=== PATIENT | female | born 1940 | race Caucasian/White ===

== ENCOUNTER → 2019-02-12 10:13 | Outpatient (CLI) | payer MEDICAID, SELFPAY | PROVIDERS: PCP Emergency Medicine; Visit Provider Internal Medicine Cardiovascular Disease | DX: R42 Dizziness and giddiness (principal) | CPT/HCPCS: 93225 ==

== ENCOUNTER 2019-06-29 08:48 | Inpatient (IN) ==
--- NOTE | 2019-06-29 08:59 | Emergency Department Note ---
ED Disposition Clinical Impression: Acute cholecystitis, Sepsis Disposition: Admitted as Observation Condition on Discharge: Fair Instructions: DI for Acute Abdomen Referrals: Bismark Sanchez MD [Primary Care Provider] - Time of Disposition: 11:40 - Critical Care Critical Care Time: No Attestation: On 06/29/19, the high probability of a clinically significant, sudden or life threatening deterioration of the following system(s) required my full and direct attention, intervention and personal management. The time I documented below is in addition to time spent performing reported procedures but includes the following listed in this critical care notation. Medical Decision Making - Medical Records Medical records reviewed: Yes: I reviewed the patient's medical records. - Edward Inquiry Pt receiving controlled substance: No Edward was queried for this patient: No Vital Signs: 06/29/19 08:50 06/29/19 09:51 06/29/19 10:16 Temperature 103 F H Temperature Source Oral Pulse Rate [Left Radial] 99 H 94 H 103 H Respiratory Rate 18 Blood Pressure [Right Arm] 172/67 H 104/74 L 137/69 Blood Pressure Mean [Right Arm] 102 84 91 Blood Pressure Source [Right Arm] Automatic Cuff Blood Pressure Position [Right Arm] Sitting 02 Sat by Pulse Oximetry 98 97 93 L Oxygen Delivery Method Room Air 06/29/19 11:03 Temperature 102.2 F H Temperature Source Oral Pulse Rate [Left Radial] Respiratory Rate Blood Pressure [Right Arm] Blood Pressure Mean [Right Arm] Blood Pressure Source [Right Arm] Blood Pressure Position [Right Arm] 02 Sat by Pulse Oximetry Oxygen Delivery Method - Lab Data Lab results reviewed: Yes: I reviewed the patient's lab results. Lab Results 06/29/19 09:15: WBC 6.9, RBC 4.31, Hgb 12.7, Hct 38.8, MCV 90.2, MCH 29.4, MCHC 32.6, RDW 13.6, Plt Count 226, MPV 8.3, Neut % (Auto) 93.1 H, Lymph % (Auto) 4.1 L, [place] % (Auto) 2.2, Eos % (Auto) 0.4, Baso % (Auto) 0.2, Neut # (Auto) 6.5, Lymph # (Auto) 0.3 L, [place] # (Auto) 0.2, Eos # (Auto) 0.0, Baso # (Auto) 0.0, Total Counted 100, Neutrophils % (Manual) 83 H, Band Neutrophils % 13.0 H, Lymphocytes % (Manual) 1 L, Atypical Lymphs % 1.0, Monocytes % (Manual) 2, Platelet Estimate Normal, RBC Morphology Normal 06/29/19 09:15: Sodium 144, Potassium 3.6, Chloride 106, Carbon Dioxide 26, Anion Gap 15.6 H, BUN 10, Creatinine 1.12 H, Estimated Creat Clear 42, Estimated GFR 47 L, Est GFR ( Amer) 57 L, Glucose 126 H, Calcium 9.0, Total Bilirubin 2.0 H, AST 582 H* D, ALT 343 H*, Alkaline Phosphatase 188 H, Total Protein 7.3, Albumin 3.9, Globulin 3.4 H, Albumin/Globulin Ratio 1.1, Lipase 82 06/29/19 09:15: Lactate 3.0 H 06/29/19 09:50: Urine Color Yellow, Urine Appearance Clear, Urine pH 7.0, Ur Specific [place] 1.015, Urine Protein Negative, Urine Glucose (UA) Negative, Urine Ketones Negative, Urine Blood Trace-i, Urine Nitrate Negative, Urine Bilirubin Negative, Urine Urobilinogen 1.0, Ur Leukocyte Esterase Negative, Urine RBC Occasional, Urine WBC Occasional, Ur Squamous Epith Cells None, Urine Bacteria None Result diagrams: 06/29/19 09:15 06/29/19 09:15 Orders (Tests/Meds): ED MEDICATIONS Discontinued Medications Generic Name Dose Route Start Last Admin Trade Name Jamshid PRN Reason Stop Dose Admin Acetaminophen 650 mg 06/29/19 08:58 06/29/19 09:53 Acetaminophen 650mg Suppository RC 06/29/19 08:59 650 mg ONCE ONE Administration Piperacillin Sod/Tazobactam 100 mls @ 200 mls/hr 06/29/19 10:15 06/29/19 11:02 Sod 4.5 gm/ Sodium Chloride IV 06/29/19 10:44 200 mls/hr ONCE ONE Administration Protocol Metronidazole 500 mg in 100 mls @ 100 mls/hr 06/29/19 10:08 06/29/19 10:12 Flagyl 500mg/100ml Ivpb IV 06/29/19 11:07 100 mls/hr ONCE ONE Administration Protocol Ioversol 75 ml 06/29/19 09:32 06/29/19 09:32 Rad-Optiray 350 100ml Vial IV 06/29/19 09:33 75 ml ONCE ONE Administration Protocol Ondansetron HCl 4 mg 06/29/19 08:59 06/29/19 09:53 Zofran 4mg/2ml Vial IV 06/29/19 09:00 4 mg ONCE ONE Administration Sodium Chloride 10 ml 06/29/19 09:32 06/29/19 09:32 Rad-Saline Flush 10ml Syringe IV 06/29/19 09:33 10 ml ONCE ONE Administration ORDERS Category Date Time Status Blood Culture Stat Micro 06/29/19 09:40 Received - Physician Consults Physician Consulted: samuel Time: 10:25 Additional Consult: madalyn Time: 11:39 Reason -: Admission General Adult HPI - General Chief complaint: Abdominal Pain Stated complaint: abd pain Time Seen by Provider: 06/29/19 08:56 Mode of Arrival: EMS Source of Information: Patient, EMS Limitations: Language Barrier Description of Symptoms (Recalled from ER Triage Doc. by RN): to ed per shanellad pt resident [facility] sent for eval due to vomiting and c/o abd pain starting this am. pt seen yesterday in ed for c/o chest pain. - History of Present Illness HPI narrative: ?? abdominal pain. poor historian - Related Data Home Medications Medication Instructions Recorded Confirmed albuterol sulfate HFA 90 2 puff INHALATION DAILYP PRN g 01/12/19 06/29/19 mcg/actuation aerosol inhaler aspirin 81 mg chewable tablet 81 mg PO DAILY 01/12/19 06/29/19 atorvastatin 40 mg tablet 40 mg PO QHS 01/12/19 06/29/19 donepezil 10 mg tablet 20 mg PO QHS tab 01/12/19 06/29/19 ergocalciferol (vitamin D2) 50,000 50,000 unit PO QWEEK 01/12/19 06/29/19 unit capsule memantine 28 mg capsule 28 mg PO DAILY 01/12/19 06/29/19 sprinkle,extended release 24hr multivitamin,tx-minerals tablet 1 tab PO DAILY 01/12/19 06/29/19 omeprazole 20 mg capsule,delayed 20 mg PO DAILY 01/12/19 06/29/19 release polyethylene glycol 3350 17 17 g PO BID 01/12/19 06/29/19 gram/dose oral powder quetiapine ER 50 mg 50 mg PO DAILY 01/12/19 06/29/19 tablet,extended release 24 hr sertraline 100 mg tablet 100 mg PO DAILY 01/12/19 06/29/19 tiotropium bromide 18 mcg capsule 1 cap INHALATION DAILY 01/12/19 06/29/19 with inhalation device Allergies Allergy/AdvReac Type Severity Reaction Status Date / Time NO KNOWN ALLERGIES Allergy Uncoded 03/05/19 09:55 [facility] History - Hepatitis A Screen Drug use history?: No High risk sexual behaviors?: No History of sexually transmitted infection?: No Currently employed?: No Childcare worker?: No Do you have indoor plumbing?: Yes Do you have electricity?: Yes Attestation statement:: This patient has been screened for Hepatitis A risk factors. I have reviewed the patient's past medical history: Yes Medical History: Reports:: Anxiety, Chronic Obstructive Pulmonary Disease (COPD), Depression, Hyperlipidemia Denies:: Diabetes Mellitus Type 1, Diabetes Mellitus Type 2 Comment: Dementia Other Surgeries: Yes: Appendectomy, Cardiac Catheterization - Social History Smoking Status: Never smoker Alcohol Intake: never Substance Use Type: denies use Occupational Status: retired - Psychiatric History Pschychiatric History:: Reports:: Anxiety, Depression Family Hx:: No significant family history ROS Obtained: Yes unobtainable due to mental condition Physical Exam - General General appearance: alert, in no apparent distress - Eye Eye exam: Present: normal appearance, PERRL, EOMI - ENT ENT exam: Present: normal exam, normal oropharynx, mucous membranes moist, TM's normal bilaterally, normal external ear exam - Neck Neck exam: Present: normal inspection, full ROM, trachea midline. Absent: men ingismus, lymphadenopathy - Respiratory Respiratory exam: Present: normal lung sounds bilaterally. Absent: respiratory distress - Cardiovascular Cardiovascular exam: Present: regular rate, normal rhythm. Absent: JVD - Abdominal Exam Abdominal exam: Present: soft, distention. Absent: tenderness, guarding, rebound - Extremities Exam Extremities exam: Present: normal inspection, full ROM, normal capillary refill. Absent: calf tenderness - Neurological Exam Neurological exam: Present: alert, oriented X3 - Psychiatric Psychiatric exam: Present: normal mood - Skin Skin exam: Present: warm, dry, intact
[2019-06-29 09:35] LABS: Basophils % 0.2 % (0.1-2.0); Eosinophils % 0.4 % (0.1-12.0); Hematocrit 38.8 % (37.0-47.0); Hemoglobin 12.7 g/dL (12.2-16.2); Lymphocytes # 0.3 K/mm3 (0.7-4.5); Lymphocytes % 4.1 % (10-50); Mean Corpuscular HGB Conc 32.6 g/dL (31.8-35.4); Mean Corpuscular Volume 90.2 fl (81-99); Mean Platelet Volume 8.3 fl (7.4-10.4); Monocytes # 0.2 K/mm3 (0.1-1.0); Monocytes % 2.2 % (1.7-9.3); Neutrophils # 6.5 K/mm3 (1.8-7.8); Neutrophils % 93.1 % (37.0-80.0); Platelet Count 226 K/mm3 (142-424); Red Blood Count 4.31 M/mm3 (4.20-5.40); Red Cell Distribution Width 13.6 % (11.5-17.5); White Blood Count 6.9 K/mm3 (4.8-10.8)
[2019-06-29 09:52] LABS: Albumin Level 3.9 gm/dL (3.4-5.0); Albumin/Globulin Ratio 1.1 (1.1-1.8); Anion Gap 15.6 mEq/L (5-15); Globulin 3.4 gm/dl (1.3-3.2); Lymphocytes % 1 % (10-50); Monocytes % 2 % (2-9); Neutrophils % 83 % (42-76); RBC Morphology Normal; Total Cells Counted 100; Total Protein,Serum 7.3 gm/dL (6.4-8.2)
[2019-06-29 09:59] LABS: Microscopic, Urine URINE MICROSCOPIC (MICROSCOPIC)
[2019-06-29 10:14] LABS: Appearance,Urine CLEAR (Clear); Bilirubin,Urine Negative (Negative); Blood, Urine TRACE-I (Negative); Color,Urine YELLOW (Yellow); Glucose,Urine (UA) Negative (Negative); Ketones,Urine Negative (Negative); Leukocyte Esterase,Urine Negative (Negative); Protein,Urine Negative (Negative); Specific Gravity, Urine 1.015 (1.005-1.030)
[2019-06-29 10:25] LABS: RBC,Urine Occasional #/hpf (0-3); WBC,Urine Occasional #/hpf (0-3)
--- NOTE | 2019-06-29 12:48 | Consult Report ---
*Admission Date: 06/29/19 *Reason for consult:: Gallbladder *History of present illness: Patient is a 78-year-old white female resident at [facility] who had presented to the emergency department late yesterday evening with chest pain. She underwent thorough work-up which was unremarkable. She was discharged from the emergency department and returned several hours later because she states "I got sick". She describes nausea. She had been having significant fever to 103 F. Work-up in the emergency department at this time revealed some appreciable elevation of the liver transaminases with only mildly above normal bilirubin and alkaline phosphatase. She underwent CT scan of the abdomen and pelvis which reveals findings notable for pericholecystic fluid and enhancing gallbladder with minimal stranding. This was felt to be potentially consistent with acute cholecystitis. She was admitted for inpatient management. Review of Systems - Review of Systems Review of systems:: unable to obtain [facility] History Medical History: Reports:: Anxiety, Chronic Obstructive Pulmonary Disease (COPD), Depression, Hyperlipidemia Denies:: Diabetes Mellitus Type 1, Diabetes Mellitus Type 2 *Have you ever received a pneumonia vaccine?: Yes *Have you received a flu vaccine this season?: Yes Other Surgeries: Yes: Appendectomy, Cardiac Catheterization - *Social History Smoking Status: Never smoker Alcohol Intake: never Substance Use Type: denies use *Occupational Status:: retired *Travel in the last 8 weeks: None - Psychiatric History Pschychiatric History:: Reports:: Anxiety, Depression Family Hx:: No significant family history Meds Home Medications Medication Instructions Recorded Confirmed Type albuterol sulfate HFA 90 2 puff INHALATION DAILYP PRN g 01/12/19 06/29/19 History mcg/actuation aerosol inhaler aspirin 81 mg chewable tablet 81 mg PO DAILY 01/12/19 06/29/19 History atorvastatin 40 mg tablet 40 mg PO QHS 01/12/19 06/29/19 History donepezil 10 mg tablet 20 mg PO QHS tab 01/12/19 06/29/19 History ergocalciferol (vitamin D2) 50,000 50,000 unit PO QWEEK 01/12/19 06/29/19 History unit capsule memantine 28 mg capsule 28 mg PO DAILY 01/12/19 06/29/19 History sprinkle,extended release 24hr multivitamin,tx-minerals tablet 1 tab PO DAILY 01/12/19 06/29/19 History omeprazole 20 mg capsule,delayed 20 mg PO DAILY 01/12/19 06/29/19 History release polyethylene glycol 3350 17 17 g PO BID 01/12/19 06/29/19 History gram/dose oral powder quetiapine ER 50 mg 50 mg PO DAILY 01/12/19 06/29/19 History tablet,extended release 24 hr sertraline 100 mg tablet 100 mg PO DAILY 01/12/19 06/29/19 History tiotropium bromide 18 mcg capsule 1 cap INHALATION DAILY 01/12/19 06/29/19 History with inhalation device Allergies Allergy/AdvReac Type Severity Reaction Status Date / Time NO KNOWN ALLERGIES Allergy Uncoded 03/05/19 09:55 Exam Vital signs and Labs for Last 24 Hours: Temp Pulse Resp BP Pulse Ox 99.3 F 92 H 20 114/54 L 91 L 06/29/19 12:34 06/29/19 12:34 06/29/19 12:34 06/29/19 12:34 06/29/19 12:34 Laboratory Results - last 24 hr 06/29/19 09:15: WBC 6.9, RBC 4.31, Hgb 12.7, Hct 38.8, MCV 90.2, MCH 29.4, MCHC 32.6, RDW 13.6, Plt Count 226, MPV 8.3, Neut % (Auto) 93.1 H, Lymph % (Auto) 4.1 L, [place] % (Auto) 2.2, Eos % (Auto) 0.4, Baso % (Auto) 0.2, Neut # (Auto) 6.5, Lymph # (Auto) 0.3 L, [place] # (Auto) 0.2, Eos # (Auto) 0.0, Baso # (Auto) 0.0, Total Counted 100, Neutrophils % (Manual) 83 H, Band Neutrophils % 13.0 H, Lymphocytes % (Manual) 1 L, Atypical Lymphs % 1.0, Monocytes % (Manual) 2, Platelet Estimate Normal, RBC Morphology Normal 06/29/19 09:15: Sodium 144, Potassium 3.6, Chloride 106, Carbon Dioxide 26, Anion Gap 15.6 H, BUN 10, Creatinine 1.12 H, Estimated Creat Clear 42, Estimated GFR 47 L, Est GFR ( Amer) 57 L, Glucose 126 H, Calcium 9.0, Total Bilirubin 2.0 H, AST 582 H* D, ALT 343 H*, Alkaline Phosphatase 188 H, Total Protein 7.3, Albumin 3.9, Globulin 3.4 H, Albumin/Globulin Ratio 1.1, Lipase 82 06/29/19 09:15: Lactate 3.0 H 06/29/19 09:50: Urine Color Yellow, Urine Appearance Clear, Urine pH 7.0, Ur Specific [place] 1.015, Urine Protein Negative, Urine Glucose (UA) Negative, Urine Ketones Negative, Urine Blood Trace-i, Urine Nitrate Negative, Urine Bilirubin Negative, Urine Urobilinogen 1.0, Ur Leukocyte Esterase Negative, Urine RBC Occasional, Urine WBC Occasional, Ur Squamous Epith Cells None, Urine Bacteria None I & O for Last 24 hours: Intake & Output 06/27/19 06/28/19 06/29/19 06/30/19 11:59 11:59 11:59 11:59 Weight 140 lb 127 lb 1 oz - *Routine HEENT Exam Head: Present: normocephalic Eye: Present: EOMI, PERRL ENT: Present: mucous membranes moist - *Routine Neck Exam Present: supple. Absent: lymphadenopathy - *Routine Respiratory Exam Present: CTA bilaterally - *Routine Cardiovascular Exam Present: RRR - *Routine Abdominal Exam Present: soft, normoactive bowel sounds. Absent: tenderness Comments: Patient does not have any appreciable tenderness. Only very minimal discomfort in the right upper quadrant. - *Routine Extremities Exam Absent: cyanosis, clubbing, edema - *Routine Skin Exam Present: warm. Absent: rash - *Routine Neurological Exam Present: alert - Detailed Eye Exam Eyelids: Left normal inspection Results - Labs 06/29/19 09:15 06/29/19 09:15 Laboratory Results - last 24 hr 06/29/19 09:15: WBC 6.9, RBC 4.31, Hgb 12.7, Hct 38.8, MCV 90.2, MCH 29.4, MCHC 32.6, RDW 13.6, Plt Count 226, MPV 8.3, Neut % (Auto) 93.1 H, Lymph % (Auto) 4.1 L, [place] % (Auto) 2.2, Eos % (Auto) 0.4, Baso % (Auto) 0.2, Neut # (Auto) 6.5, Lymph # (Auto) 0.3 L, [place] # (Auto) 0.2, Eos # (Auto) 0.0, Baso # (Auto) 0.0, Total Counted 100, Neutrophils % (Manual) 83 H, Band Neutrophils % 13.0 H, Lymphocytes % (Manual) 1 L, Atypical Lymphs % 1.0, Monocytes % (Manual) 2, Platelet Estimate Normal, RBC Morphology Normal 06/29/19 09:15: Sodium 144, Potassium 3.6, Chloride 106, Carbon Dioxide 26, Anion Gap 15.6 H, BUN 10, Creatinine 1.12 H, Estimated Creat Clear 42, Estimated GFR 47 L, Est GFR ( Amer) 57 L, Glucose 126 H, Calcium 9.0, Total Bilirubin 2.0 H, AST 582 H* D, ALT 343 H*, Alkaline Phosphatase 188 H, Total Protein 7.3, Albumin 3.9, Globulin 3.4 H, Albumin/Globulin Ratio 1.1, Lipase 82 06/29/19 09:15: Lactate 3.0 H 06/29/19 09:50: Urine Color Yellow, Urine Appearance Clear, Urine pH 7.0, Ur Specific [place] 1.015, Urine Protein Negative, Urine Glucose (UA) Negative, Urine Ketones Negative, Urine Blood Trace-i, Urine Nitrate Negative, Urine Bilirubin Negative, Urine Urobilinogen 1.0, Ur Leukocyte Esterase Negative, Urine RBC Occasional, Urine WBC Occasional, Ur Squamous Epith Cells None, Urine Bacteria None Assessment and Plan - Assessment and plan all Dx Assessment and Plan for all problems:: Likely acute cholecystitis. Initiate antibiotic therapy with Zosyn and metronidazole. Plan for gallbladder ultrasound this afternoon to better evaluate the biliary tree and to evaluate for any non-radiopaque gallstones. I will order a hepatitis panel as well to evaluate for acute viral hepatitis as an etiology. Consult cardiology for risk assessment for possible surgery given her prior cardiac history.
--- NOTE | 2019-06-29 13:06 | History & Physical Report ---
*Admission Date: 06/29/19 *Chief complaint: abd pain *History of present illness: this wf from nursing home had had chest pain abd pain and was seen in the ed with no def acute finding and returned to nursing home and had abd pain with fever and vomiting - she was seen in the ed - pt was found to have acute gb disease and had sepsis - pt was admitted for ivf and abx and surg consult [facility] History I have reviewed the patient's past medical history: Yes Medical History: Reports:: Anxiety, Chronic Obstructive Pulmonary Disease (COPD), Depression, Hyperlipidemia Denies:: Diabetes Mellitus Type 1, Diabetes Mellitus Type 2 *Have you ever received a pneumonia vaccine?: No (unsure) *Have you received a flu vaccine this season?: No (unsure) Other Medical History: Reports: Anemia Other Surgeries: Yes: Appendectomy, Cardiac Catheterization - *Social History Smoking Status: Never smoker Alcohol Intake: never Substance Use Type: denies use *Occupational Status:: disabled *Travel in the last 8 weeks: None - Psychiatric History Pschychiatric History:: Reports:: Anxiety, Depression Family Hx:: No significant family history Review of Systems - Review of Systems Review of systems:: pertinent systems reviewed and negative unless documented below - Constitutional Reports fever(s) - Eyes Denies change in vision - ENT Denies sore throat - *Cardiovascular Denies chest pain at rest - *Respiratory Denies cough, Denies coughing up blood - *Gastrointestinal Reports abdominal pain, Reports nausea, Reports vomiting, Denies black, tarry stools - *Genitourinary Denies blood in urine - *Musculoskeletal Denies joint pain - Integumentary/Breasts Denies rash - *Neurologic Denies seizure-like activity - Psychiatric Denies anxiety Meds Home Medications Medication Instructions Recorded Confirmed Type albuterol sulfate HFA 90 2 puff INHALATION DAILYP PRN g 01/12/19 06/29/19 History mcg/actuation aerosol inhaler aspirin 81 mg chewable tablet 81 mg PO DAILY 01/12/19 06/29/19 History atorvastatin 40 mg tablet 40 mg PO HS 01/12/19 06/29/19 History donepezil 10 mg tablet 20 mg PO HS tab 01/12/19 06/29/19 History ergocalciferol (vitamin D2) 50,000 50,000 unit PO QWEEK 01/12/19 06/29/19 History unit capsule memantine 28 mg capsule 28 mg PO HS 01/12/19 06/29/19 History sprinkle,extended release 24hr multivitamin,tx-minerals tablet 1 tab PO DAILY 01/12/19 06/29/19 History omeprazole 20 mg capsule,delayed 20 mg PO DAILY 01/12/19 06/29/19 History release polyethylene glycol 3350 17 17 g PO BID 01/12/19 06/29/19 History gram/dose oral powder sertraline 100 mg tablet 100 mg PO DAILY 01/12/19 06/29/19 History tiotropium bromide 18 mcg capsule 1 cap INHALATION DAILY 01/12/19 06/29/19 History with inhalation device Acetaminophen [Acetaminophen 325mg 650 mg PO Q6HP PRN 06/29/19 06/29/19 History tab] Loperamide HCl [Loperamide] 2 mg PO Q3HP PRN 06/29/19 06/29/19 History Quetiapine Fumarate 50 mg PO HS 06/29/19 06/29/19 History Allergies Allergy/AdvReac Type Severity Reaction Status Date / Time No Known Allergies Allergy Unverified 06/29/19 13:01 Exam Vital signs and Labs for Last 24 Hours: Temp Pulse Resp BP Pulse Ox 99.3 F 92 H 20 114/54 L 91 L 06/29/19 12:34 06/29/19 12:34 06/29/19 12:34 06/29/19 12:34 06/29/19 12:34 Laboratory Results - last 24 hr 06/29/19 09:15: WBC 6.9, RBC 4.31, Hgb 12.7, Hct 38.8, MCV 90.2, MCH 29.4, MCHC 32.6, RDW 13.6, Plt Count 226, MPV 8.3, Neut % (Auto) 93.1 H, Lymph % (Auto) 4.1 L, [place] % (Auto) 2.2, Eos % (Auto) 0.4, Baso % (Auto) 0.2, Neut # (Auto) 6.5, Lymph # (Auto) 0.3 L, [place] # (Auto) 0.2, Eos # (Auto) 0.0, Baso # (Auto) 0.0, Total Counted 100, Neutrophils % (Manual) 83 H, Band Neutrophils % 13.0 H, Lymphocytes % (Manual) 1 L, Atypical Lymphs % 1.0, Monocytes % (Manual) 2, Platelet Estimate Normal, RBC Morphology Normal 06/29/19 09:15: Sodium 144, Potassium 3.6, Chloride 106, Carbon Dioxide 26, Anion Gap 15.6 H, BUN 10, Creatinine 1.12 H, Estimated Creat Clear 42, Estimated GFR 47 L, Est GFR ( Amer) 57 L, Glucose 126 H, Calcium 9.0, Total Bilirubin 2.0 H, AST 582 H* D, ALT 343 H*, Alkaline Phosphatase 188 H, Total Protein 7.3, Albumin 3.9, Globulin 3.4 H, Albumin/Globulin Ratio 1.1, Lipase 82 06/29/19 09:15: Lactate 3.0 H 06/29/19 09:50: Urine Color Yellow, Urine Appearance Clear, Urine pH 7.0, Ur Specific [place] 1.015, Urine Protein Negative, Urine Glucose (UA) Negative, Urine Ketones Negative, Urine Blood Trace-i, Urine Nitrate Negative, Urine Bilirubin Negative, Urine Urobilinogen 1.0, Ur Leukocyte Esterase Negative, Urin e RBC Occasional, Urine WBC Occasional, Ur Squamous Epith Cells None, Urine Bacteria None I & O for Last 24 hours: Intake & Output 06/27/19 06/28/19 06/29/19 06/30/19 11:59 11:59 11:59 11:59 Weight 140 lb 127 lb 1 oz - Constitutional no acute distress - *Routine HEENT Exam Head: Present: normocephalic Eye: Present: EOMI, PERRL. Absent: conjunctival icterus ENT: Present: mucous membranes dry - *Routine Neck Exam Present: supple - *Routine Respiratory Exam Present: CTA bilaterally - *Routine Cardiovascular Exam Present: RRR, murmur - *Routine Abdominal Exam Present: soft, tenderness - *Routine Extremities Exam Absent: calf tenderness - *Routine Skin Exam Present: intact - *Routine Neurological Exam Present: alert, CN II-XII intact - Routine Psychiatric Exam Present: normal affect Assessment and Plan (1) Acute cholecystitis Current visit: Yes Status: Acute Category: Medical Code(s): K81.0 - Acute cholecystitis (2) Sepsis Current visit: Yes Status: Acute Qualifiers: Sepsis type: sepsis due to unspecified organism Sepsis acute organ dysfunction status: without acute organ dysfunction Qualified Code(s): A41.9 - Sepsis, unspecified organism Category: Medical Code(s): A41.9 - Sepsis, unspecified organism (3) Elevated LFTs Current visit: Yes Status: Acute Category: Medical Code(s): R94.5 - Abnormal results of liver function studies (4) HLD (hyperlipidemia) Current visit: No Status: Chronic Qualifiers: Hyperlipidemia type: mixed hyperlipidemia Qualified Code(s): E78.2 - Mixed hyperlipidemia Category: Medical Code(s): E78.5 - Hyperlipidemia, unspecified (5) Memory deficit Current visit: Yes Status: Acute Category: Medical Code(s): R41.3 - Other amnesia
--- NOTE | 2019-06-29 13:38 | Pharmacy Consult Notes ---
[facility] Pharmacy VTE Monitoring - Patient Demographics Admission date: 06/29/19 Report Date: 06/29/19 Time: 13:38 Allergies/Adverse Reactions: Patient Allergies No Known Allergies Allergy (Unverified 06/29/19 13:01) Height: 1.63 m Weight: 57.635 kg Patient Problems: Current Active Problems Acute cholecystitis (Acute) Sepsis (Acute) - VTE Risk Labs: VTE Related Lab Results Hgb 12.7 g/dL (12.2-16.2) 06/29/19 09:15 Hct 38.8 % (37.0-47.0) 06/29/19 09:15 Plt Count 226 K/mm3 (142-424) 06/29/19 09:15 BUN 10 mg/dL (7-18) 06/29/19 09:15 Creatinine 1.12 mg/dL (0.55-1.02) H 06/29/19 09:15 Estimated Creat Clear 42 mL/min (50-200) 06/29/19 09:15 - Prophylaxis VTE Prophylaxis Ordered?: Yes Types of VTE Prophylaxis: TEDS Knee High Location of Applied Device: Bilateral Lower Extremeties - VTE Diagnosis Confirmed Treatment or plan recommended: Continue Current Treatment
--- NOTE | 2019-06-29 13:53 | Consult Report ---
History of Present Illness Consult date: 06/29/19 Requesting physician: Bismark Sanchez Consult reason: pre-op evaluation Chief complaint: Abdominal pain, pre-op evaluation for cholecystectomy Additional Medical History:: 1. Mild CAD, 2015, Cardiac cath A. ANGIOGRAPHIC RESULTS: 1. The left main artery is normal 2. The left anterior descending artery has mild luminal irregularities 3. The circumflex artery is a dominant vessel and normal 4. The right coronary artery is nondominant and normal 5. The [place] ventriculogram reveals normal ejection fraction estimated at 65% 6. The left ventricular end-diastolic pressure is 10 mmHg IMPRESSION: 1. Mild nonflow limiting disease throughout the LAD 2. Normal ejection fraction 3. Normal left ventricular end-diastolic pressure 2. COPD 3. Anxiety/Depression 4. Hyperlipidemia 5. History of hypertension History of present illness: Patient is a 78-year-old white female resident at [facility] who had presented to the emergency department late yesterday evening with chest pain. She underwent thorough work-up which was unremarkable. She was discharged from the emergency department and returned several hours later because she states "I got sick". She describes nausea. She had been having significant fever to 103 F. Work-up in the emergency department at this time revealed some appreciable elevation of the liver transaminases with only mildly above normal bilirubin and alkaline phosphatase. She underwent CT scan of the abdomen and pelvis which reveals findings notable for pericholecystic fluid and enhancing gallbladder with minimal stranding. This was felt to be potentially consistent with acute cholecystitis. She was admitted for inpatient management. The above per Dr. Mijares Pt is a poor historian Denies chest pain at this time. [facility] History Medical History: Reports:: Anxiety, Chronic Obstructive Pulmonary Disease (COPD), Depression, Hyperlipidemia Denies:: Diabetes Mellitus Type 1, Diabetes Mellitus Type 2 *Have you ever received a pneumonia vaccine?: No (unsure) *Have you received a flu vaccine this season?: No (unsure) Other Medical History: Reports: Anemia Other Surgeries: Yes: Appendectomy, Cardiac Catheterization - *Social History Smoking Status: Never smoker Alcohol Intake: never Substance Use Type: denies use *Occupational Status:: disabled *Travel in the last 8 weeks: None - Psychiatric History Pschychiatric History:: Reports:: Anxiety, Depression Family Hx:: No significant family history Meds Home Medications Medication Instructions Recorded Confirmed Type albuterol sulfate HFA 90 2 puff INHALATION DAILYP PRN g 01/12/19 06/29/19 History mcg/actuation aerosol inhaler aspirin 81 mg chewable tablet 81 mg PO DAILY 01/12/19 06/29/19 History atorvastatin 40 mg tablet 40 mg PO HS 01/12/19 06/29/19 History donepezil 10 mg tablet 20 mg PO HS tab 01/12/19 06/29/19 History ergocalciferol (vitamin D2) 50,000 50,000 unit PO QWEEK 01/12/19 06/29/19 History unit capsule memantine 28 mg capsule 28 mg PO HS 01/12/19 06/29/19 History sprinkle,extended release 24hr multivitamin,tx-minerals tablet 1 tab PO DAILY 01/12/19 06/29/19 History omeprazole 20 mg capsule,delayed 20 mg PO DAILY 01/12/19 06/29/19 History release polyethylene glycol 3350 17 17 g PO BID 01/12/19 06/29/19 History gram/dose oral powder sertraline 100 mg tablet 100 mg PO DAILY 01/12/19 06/29/19 History tiotropium bromide 18 mcg capsule 1 cap INHALATION DAILY 01/12/19 06/29/19 History with inhalation device Acetaminophen [Acetaminophen 325mg 650 mg PO Q6HP PRN 06/29/19 06/29/19 History tab] Loperamide HCl [Loperamide] 2 mg PO Q3HP PRN 06/29/19 06/29/19 History Quetiapine Fumarate 50 mg PO HS 06/29/19 06/29/19 History Allergies Allergy/AdvReac Type Severity Reaction Status Date / Time No Known Allergies Allergy Unverified 06/29/19 13:01 Review of Systems - *Cardiovascular Reports chest pain, Denies shortness of breath - *Respiratory Denies shortness of breath - *Gastrointestinal Reports abdominal pain, Reports nausea, Reports vomiting - *Genitourinary Denies blood in urine - *Musculoskeletal Denies joint pain, Denies back pain - *Neurologic Reports unsteadiness, Reports dizziness Exam Vital signs and Labs for Last 24 Hours: Temp Pulse Resp BP Pulse Ox 99.3 F 92 H 20 114/54 L 91 L 06/29/19 12:34 06/29/19 12:34 06/29/19 12:34 06/29/19 12:34 06/29/19 12:34 Laboratory Results - last 24 hr 06/29/19 09:15: WBC 6.9, RBC 4.31, Hgb 12.7, Hct 38.8, MCV 90.2, MCH 29.4, MCHC 32.6, RDW 13.6, Plt Count 226, MPV 8.3, Neut % (Auto) 93.1 H, Lymph % (Auto) 4.1 L, [place] % (Auto) 2.2, Eos % (Auto) 0.4, Baso % (Auto) 0.2, Neut # (Auto) 6.5, Lymph # (Auto) 0.3 L, [place] # (Auto) 0.2, Eos # (Auto) 0.0, Baso # (Auto) 0.0, Total Counted 100, Neutrophils % (Manual) 83 H, Band Neutrophils % 13.0 H, Lymphocytes % (Manual) 1 L, Atypical Lymphs % 1.0, Monocytes % (Manual) 2, Platelet Estimate Normal, RBC Morphology Normal 06/29/19 09:15: Sodium 144, Potassium 3.6, Chloride 106, Carbon Dioxide 26, Anion Gap 15.6 H, BUN 10, Creatinine 1.12 H, Estimated Creat Clear 42, Estimated GFR 47 L, Est GFR ( Amer) 57 L, Glucose 126 H, Calcium 9.0, Total Bilirubin 2.0 H, AST 582 H* D, ALT 343 H*, Alkaline Phosphatase 188 H, Total Protein 7.3, Albumin 3.9, Globulin 3.4 H, Albumin/Globulin Ratio 1.1, Lipase 82 06/29/19 09:15: Lactate 3.0 H 06/29/19 09:50: Urine Color Yellow, Urine Appearance Clear, Urine pH 7.0, Ur Specific [place] 1.015, Urine Protein Negative, Urine Glucose (UA) Negative, Urine Ketones Negative, Urine Blood Trace-i, Urine Nitrate Negative, Urine Bilirubin Negative, Urine Urobilinogen 1.0, Ur Leukocyte Esterase Negative, Urine RBC Occasional, Urine WBC Occasional, Ur Squamous Epith Cells None, Urine Bacteria None I & O for Last 24 hours: Intake & Output 06/27/19 06/28/19 06/29/19 06/30/19 11:59 11:59 11:59 11:59 Weight 140 lb 127 lb 1 oz - *Routine HEENT Exam Head: Present: normocephalic Eye: Present: EOMI, PERRL ENT: Present: mucous membranes moist - *Routine Neck Exam Present: supple. Absent: JVD, carotid bruit - *Routine Respiratory Exam Present: CTA bilaterally. Absent: accessory muscle use, rales, rhonchi, wheezes - *Routine Cardiovascular Exam Present: RRR. Absent: murmur, gallop, rubs - *Routine Abdominal Exam Present: soft, tenderness. Absent: distended, guarding - *Routine Extremities Exam Absent: edema, calf tenderness - *Routine Neurological Exam Present: alert, moving all extremities Assessment and Plan (1) Acute cholecystitis Current visit: Yes Status: Acute Category: Medical Code(s): K81.0 - Acute cholecystitis (2) Sepsis Current visit: Yes Status: Acute Category: Medical Code(s): A41.9 - Sepsis, unspecified organism (3) Dizziness and giddiness Current visit: No Status: Acute Category: Medical Code(s): R42 - Dizziness and giddiness (4) CAD (coronary artery disease) Current visit: No Status: Chronic Qualifiers: Coronary Disease-Associated Artery/Lesion type: [place] artery [place] vs. transplanted heart: [place] heart Associated angina: without angina Qualified Code(s): I25.10 - Atherosclerotic heart disease of [place] coronary artery without angina pectoris Category: Medical Code(s): I25.10 - Atherosclerotic heart disease of [place] coronary artery without angina pectoris (5) HLD (hyperlipidemia) Current visit: No Status: Chronic Qualifiers: Hyperlipidemia type: mixed hyperlipidemia Qualified Code(s): E78.2 - Mixed hyperlipidemia Category: Medical Code(s): E78.5 - Hyperlipidemia, unspecified - Assessment and plan all Dx Assessment and Plan for all problems:: 1. Cardiology consulted for preop evaluation for possible cholecystectomy. Patient had an essentially normal cardiac catheterization 4 years ago. She denies any chest pain at this time although she was evaluated in the ER yesterday for chest pain with results unremarkable. Preliminary echocardiogram in the room today shows preserved ejection fraction. Patient is a low and acceptable risk from a cardiac standpoint to proceed with cholecystectomy if needed. 2. Nothing further at this time. Will see PRN
[2019-06-30 06:15] LABS: Basophils % 0.2 % (0.1-2.0); Eosinophils # 0.2 K/mm3 (0.0-0.4); Eosinophils % 1.6 % (0.1-12.0); Hematocrit 33.2 % (37.0-47.0); Lymphocytes # 0.9 K/mm3 (0.7-4.5); Lymphocytes % 9.9 % (10-50); Mean Corpuscular HGB Conc 32.2 g/dL (31.8-35.4); Mean Corpuscular Volume 89.8 fl (81-99); Mean Platelet Volume 8.9 fl (7.4-10.4); Monocytes # 0.4 K/mm3 (0.1-1.0); Monocytes % 4.6 % (1.7-9.3); Neutrophils # 7.9 K/mm3 (1.8-7.8); Neutrophils % 83.7 % (37.0-80.0); Platelet Count 196 K/mm3 (142-424); Red Blood Count 3.69 M/mm3 (4.20-5.40); Red Cell Distribution Width 13.9 % (11.5-17.5); White Blood Count 9.4 K/mm3 (4.8-10.8)
[2019-06-30 06:21] LABS: Anion Gap 11.6 mEq/L (5-15)
--- NOTE | 2019-06-30 06:55 | Progress Note ---
Subjective Patient reports: no new complaints Exam Vital signs and Labs for Last 24 Hours: Temp Pulse Resp BP Pulse Ox 98.9 F 80 16 102/63 L 90 L 06/30/19 04:00 06/30/19 04:00 06/30/19 04:00 06/30/19 04:00 06/30/19 04:00 Laboratory Results - last 24 hr 06/29/19 09:15: WBC 6.9, RBC 4.31, Hgb 12.7, Hct 38.8, MCV 90.2, MCH 29.4, MCHC 32.6, RDW 13.6, Plt Count 226, MPV 8.3, Neut % (Auto) 93.1 H, Lymph % (Auto) 4.1 L, [place] % (Auto) 2.2, Eos % (Auto) 0.4, Baso % (Auto) 0.2, Neut # (Auto) 6.5, Lymph # (Auto) 0.3 L, [place] # (Auto) 0.2, Eos # (Auto) 0.0, Baso # (Auto) 0.0, Total Counted 100, Neutrophils % (Manual) 83 H, Band Neutrophils % 13.0 H, Lymphocytes % (Manual) 1 L, Atypical Lymphs % 1.0, Monocytes % (Manual) 2, Platelet Estimate Normal, RBC Morphology Normal 06/29/19 09:15: Sodium 144, Potassium 3.6, Chloride 106, Carbon Dioxide 26, Anion Gap 15.6 H, BUN 10, Creatinine 1.12 H, Estimated Creat Clear 42, Estimated GFR 47 L, Est GFR ( Amer) 57 L, Glucose 126 H, Calcium 9.0, Total Bilirubin 2.0 H, AST 582 H* D, ALT 343 H*, Alkaline Phosphatase 188 H, Total Protein 7.3, Albumin 3.9, Globulin 3.4 H, Albumin/Globulin Ratio 1.1, Lipase 82 06/29/19 09:15: Lactate 3.0 H 06/29/19 09:50: Urine Color Yellow, Urine Appearance Clear, Urine pH 7.0, Ur Specific [place] 1.015, Urine Protein Negative, Urine Glucose (UA) Negative, Urine Ketones Negative, Urine Blood Trace-i, Urine Nitrate Negative, Urine Bilirubin Negative, Urine Urobilinogen 1.0, Ur Leukocyte Esterase Negative, Urine RBC Occasional, Urine WBC Occasional, Ur Squamous Epith Cells None, Urine Bacteria None 06/29/19 13:45: Lactate 2.7 H 06/29/19 16:05: Lactate 2.0 06/30/19 06:01: WBC 9.4 D, RBC 3.69 L, Hct 33.2 L, MCV 89.8, MCH 28.9, MCHC 32.2, RDW 13.9, Plt Count 196, MPV 8.9, Neut % (Auto) 83.7 H, Lymph % (Auto) 9.9 L, [place] % (Auto) 4.6, Eos % (Auto) 1.6, Baso % (Auto) 0.2, Neut # (Auto) 7.9 H, Lymph # (Auto) 0.9, [place] # (Auto) 0.4, Eos # (Auto) 0.2, Baso # (Auto) 0.0 06/30/19 06:01: Sodium 144, Potassium 3.6, Chloride 112 H, Carbon Dioxide 24, Anion Gap 11.6, BUN 9, Creatinine 0.95, Estimated Creat Clear 44, Estimated GFR 57 L, Est GFR ( Amer) 69 D, Glucose 92 D I & O for Last 24 hours: Intake & Output 06/27/19 06/28/19 06/29/19 06/30/19 11:59 11:59 11:59 11:59 Intake Total 2432 / 2432 Balance 2432 / 2432 Weight 140 lb 130 lb 3 oz - *Routine Abdominal Exam Present: soft, tenderness Comments: Some tenderness in RUQ. Progress Note: A&P (1) Acute cholecystitis Status: Acute Assessment and plan: Tentatively plan for cholecystectomy this afternoon with probable cholangiogram. Liver tests pending at this time. Current Visit: Yes (2) Sepsis Status: Acute Current Visit: Yes (3) Dizziness and giddiness Status: Acute Current Visit: No (4) CAD (coronary artery disease) Status: Chronic Current Visit: No (5) HLD (hyperlipidemia) Status: Chronic Current Visit: No
[2019-06-30 07:01] LABS: Calcium 8.1 mg/dL (8.5-10.1)
[2019-06-30 07:05] LABS: Hemoglobin 10.6 g/dL (12.2-16.2)
[2019-06-30 07:14] LABS: Hepatitis B Surface Antigen Negative (Negative)
[2019-06-30 07:16] LABS: Albumin Level 2.7 gm/dL (3.4-5.0); Bilirubin,Direct 2.4 mg/dL (0.0-0.2); Bilirubin,Indirect 0.9 mg/dL (0.0-0.9); Bilirubin,Total 3.3 mg/dL (0.2-1.0); Total Protein,Serum 5.6 gm/dL (6.4-8.2)
--- NOTE | 2019-06-30 08:40 | Progress Note ---
Internal Medicine - PN: Subj *Date: 06/30/19 *Time: 08:41 Interval history: 78-year-old female patient sitting in bed resting quietly. She does report some abdominal tenderness, denies shortness of breath. General surgery is seen this morning and tentatively plan for cholecystectomy this afternoon with probable cholangiogram. AST today is 955 up from 582 yesterday, ALT is 1153 today up from 343 yesterday, today's alkaline phosphate 203. Exam Vital signs and Labs for Last 24 Hours: Temp Pulse Resp BP Pulse Ox 99.0 F 84 17 113/64 90 L 06/30/19 07:46 06/30/19 07:46 06/30/19 07:46 06/30/19 07:46 06/30/19 07:46 Laboratory Results - last 24 hr 06/29/19 09:15: WBC 6.9, RBC 4.31, Hgb 12.7, Hct 38.8, MCV 90.2, MCH 29.4, MCHC 32.6, RDW 13.6, Plt Count 226, MPV 8.3, Neut % (Auto) 93.1 H, Lymph % (Auto) 4.1 L, [place] % (Auto) 2.2, Eos % (Auto) 0.4, Baso % (Auto) 0.2, Neut # (Auto) 6.5, Lymph # (Auto) 0.3 L, [place] # (Auto) 0.2, Eos # (Auto) 0.0, Baso # (Auto) 0.0, Total Counted 100, Neutrophils % (Manual) 83 H, Band Neutrophils % 13.0 H, Lymphocytes % (Manual) 1 L, Atypical Lymphs % 1.0, Monocytes % (Manual) 2, Platelet Estimate Normal, RBC Morphology Normal 06/29/19 09:15: Sodium 144, Potassium 3.6, Chloride 106, Carbon Dioxide 26, Anion Gap 15.6 H, BUN 10, Creatinine 1.12 H, Estimated Creat Clear 42, Estimated GFR 47 L, Est GFR ( Amer) 57 L, Glucose 126 H, Calcium 9.0, Total Bilirubin 2.0 H, AST 582 H* D, ALT 343 H*, Alkaline Phosphatase 188 H, Total Protein 7.3, Albumin 3.9, Globulin 3.4 H, Albumin/Globulin Ratio 1.1, Lipase 82 06/29/19 09:15: Lactate 3.0 H 06/29/19 09:50: Urine Color Yellow, Urine Appearance Clear, Urine pH 7.0, Ur Specific [place] 1.015, Urine Protein Negative, Urine Glucose (UA) Negative, Urine Ketones Negative, Urine Blood Trace-i, Urine Nitrate Negative, Urine Bilirubin Negative, Urine Urobilinogen 1.0, Ur Leukocyte Esterase Negative, Urine RBC Occasional, Urine WBC Occasional, Ur Squamous Epith Cells None, Urine Bacteria None 06/29/19 13:45: Lactate 2.7 H 06/29/19 16:05: Lactate 2.0 06/30/19 06:01: WBC 9.4 D, RBC 3.69 L, Hgb 10.6 L D, Hct 33.2 L, MCV 89.8, MCH 28.9, MCHC 32.2, RDW 13.9, Plt Count 196, MPV 8.9, Neut % (Auto) 83.7 H, Lymph % (Auto) 9.9 L, [place] % (Auto) 4.6, Eos % (Auto) 1.6, Baso % (Auto) 0.2, Neut # (Auto) 7.9 H, Lymph # (Auto) 0.9, [place] # (Auto) 0.4, Eos # (Auto) 0.2, Baso # (Auto) 0.0 06/30/19 06:01: Sodium 144, Potassium 3.6, Chloride 112 H, Carbon Dioxide 24, Anion Gap 11.6, BUN 9, Creatinine 0.95, Estimated Creat Clear 44, Estimated GFR 57 L, Est GFR ( Amer) 69 D, Glucose 92 D, Calcium 8.1 L 06/30/19 06:01: Total Bilirubin 3.3 H, Direct Bilirubin 2.4 H, Indirect Bilirubin 0.9, AST 955 H* D, ALT 1153 H*, Alkaline Phosphatase 203 H, Total Protein 5.6 L, Albumin 2.7 L D I & O for Last 24 hours: Intake & Output 06/27/19 06/28/19 06/29/19 06/30/19 23:59 23:59 23:59 23:59 Intake Total 844 / 844 1688 / 1688 Balance 844 / 844 1688 / 1688 Weight 127 lb 1 oz 130 lb 3 oz - Constitutional no acute distress - *Routine HEENT Exam Head: Present: normocephalic, atraumatic. Absent: tenderness of temporal artery Eye: Present: EOMI, PERRL, normal accommodation. Absent: periorbital ecchymosis ENT: Present: mucous membranes dry. Absent: sinus tenderness - *Routine Neck Exam Present: supple, full ROM - *Routine Respiratory Exam Present: CTA bilaterally. Absent: accessory muscle use, rales - *Routine Cardiovascular Exam Present: RRR, murmur - *Routine Abdominal Exam Present: soft, normoactive bowel sounds, tenderness - *Routine Extremities Exam Present: pulses intact. Absent: cyanosis, calf tenderness - Routine Back/Spine/Pelvis Exam Back/Spine: Present: full ROM. Absent: CVA tenderness - *Routine Skin Exam Present: intact. Absent: cyanosis, jaundice - *Routine Neurological Exam Present: alert, oriented X3, CN II-XII intact. Absent: motor deficit, altered mental status - Routine Psychiatric Exam Present: normal affect, normal thought process. Absent: visual hallucinations, tactile hallucinations Assessment and Plan (1) Acute cholecystitis Current visit: Yes Status: Acute Category: Medical Code(s): K81.0 - Acute cholecystitis (2) Sepsis Current visit: Yes Status: Acute Qualifiers: Sepsis type: sepsis due to unspecified organism Sepsis acute organ dysfunction status: without acute organ dysfunction Qualified Code(s): A41.9 - Sepsis, unspecified organism Category: Medical Code(s): A41.9 - Sepsis, unspecified organism (3) Elevated LFTs Current visit: Yes Status: Acute Category: Medical Code(s): R94.5 - Abnormal results of liver function studies (4) HLD (hyperlipidemia) Current visit: No Status: Chronic Qualifiers: Hyperlipidemia type: mixed hyperlipidemia Qualified Code(s): E78.2 - Mixed hyperlipidemia Category: Medical Code(s): E78.5 - Hyperlipidemia, unspecified (5) Memory deficit Current visit: Yes Status: Acute Category: Medical Code(s): R41.3 - Other amnesia - Assessment and plan all Dx Assessment and Plan for all problems:: Rounded with Dr. Sanchez, all orders per Dr. Sanchez. Per Sur. Tentatively plan for cholecystectomy this afternoon with probable cholangiogram. The patient's infection will respond to the chosen ABx?: Yes Is the patient receiving the right drug, dose, and route?: Yes Could a more targeted ABx be ordered?: No
--- NOTE | 2019-06-30 11:07 | Progress Note ---
Subjective Patient reports: no new complaints Exam Vital signs and Labs for Last 24 Hours: Temp Pulse Resp BP Pulse Ox 99.0 F 84 17 113/64 90 L 06/30/19 07:46 06/30/19 07:46 06/30/19 07:46 06/30/19 07:46 06/30/19 07:46 Laboratory Results - last 24 hr 06/29/19 13:45: Lactate 2.7 H 06/29/19 16:05: Lactate 2.0 06/30/19 06:01: WBC 9.4 D, RBC 3.69 L, Hgb 10.6 L D, Hct 33.2 L, MCV 89.8, MCH 28.9, MCHC 32.2, RDW 13.9, Plt Count 196, MPV 8.9, Neut % (Auto) 83.7 H, Lymph % (Auto) 9.9 L, [place] % (Auto) 4.6, Eos % (Auto) 1.6, Baso % (Auto) 0.2, Neut # (Auto) 7.9 H, Lymph # (Auto) 0.9, [place] # (Auto) 0.4, Eos # (Auto) 0.2, Baso # (Auto) 0.0 06/30/19 06:01: Sodium 144, Potassium 3.6, Chloride 112 H, Carbon Dioxide 24, Anion Gap 11.6, BUN 9, Creatinine 0.95, Estimated Creat Clear 44, Estimated GFR 57 L, Est GFR ( Amer) 69 D, Glucose 92 D, Calcium 8.1 L 06/30/19 06:01: Total Bilirubin 3.3 H, Direct Bilirubin 2.4 H, Indirect Bilirubin 0.9, AST 955 H* D, ALT 1153 H*, Alkaline Phosphatase 203 H, Total Protein 5.6 L, Albumin 2.7 L D I & O for Last 24 hours: Intake & Output 06/27/19 06/28/19 06/29/19 06/30/19 11:59 11:59 11:59 11:59 Intake Total 2531 / 2531 Balance 2531 / 2531 Weight 140 lb 130 lb 3 oz - *Routine Abdominal Exam Present: tenderness Progress Note: A&P (1) Acute cholecystitis Status: Acute Current Visit: Yes (2) Sepsis Status: Acute Current Visit: Yes (3) Elevated LFTs Status: Acute Assessment and plan: Patient has shown progressive elevation of liver function tests with significant increase in transaminases, bilirubin, and alkaline phosphatase. This seems like an out of proportion elevation of transaminases for a common bile duct stone. Particularly given the fact that she had a normal common bile duct on her ultrasound. She does have an acute hepatitis panel pending. At this point I feel the best plan of action would be to refrain from cholecystectomy today, await hepatitis panel as this may be the primary cause and her gallstones may be an incidental finding. If her hepatitis panel is negative and she has ongoing elevation of liver function tests she could require ERCP first. Current Visit: Yes (4) HLD (hyperlipidemia) Status: Chronic Current Visit: No (5) Memory deficit Status: Acute Current Visit: Yes
[2019-06-30 11:08] LABS: Hepatitis C Antibody <0.1 s/co ratio (0.0-0.9)
[2019-07-01 06:31] LABS: Basophils % 0.3 % (0.1-2.0); Eosinophils # 0.1 K/mm3 (0.0-0.4); Eosinophils % 1.4 % (0.1-12.0); Hematocrit 31.6 % (37.0-47.0); Lymphocytes % 11.9 % (10-50); Mean Corpuscular HGB Conc 31.8 g/dL (31.8-35.4); Mean Corpuscular Volume 91.1 fl (81-99); Mean Platelet Volume 8.8 fl (7.4-10.4); Monocytes # 0.4 K/mm3 (0.1-1.0); Monocytes % 4.7 % (1.7-9.3); Neutrophils # 6.5 K/mm3 (1.8-7.8); Neutrophils % 81.7 % (37.0-80.0); Platelet Count 182 K/mm3 (142-424); Red Blood Count 3.47 M/mm3 (4.20-5.40); White Blood Count 7.9 K/mm3 (4.8-10.8)
[2019-07-01 06:47] LABS: Albumin Level 2.5 gm/dL (3.4-5.0); Albumin/Globulin Ratio 0.9 (1.1-1.8); Anion Gap 14.4 mEq/L (5-15); Bilirubin,Direct 0.9 mg/dL (0.0-0.2); Bilirubin,Indirect 0.5 mg/dL (0.0-0.9); Bilirubin,Total 1.4 mg/dL (0.2-1.0); Calcium 7.9 mg/dL (8.5-10.1); Globulin 2.9 gm/dl (1.3-3.2); Total Protein,Serum 5.4 gm/dL (6.4-8.2)
--- NOTE | 2019-07-01 06:56 | Progress Note ---
Subjective Patient reports: no new complaints Narrative: Pt resting. Exam Vital signs and Labs for Last 24 Hours: Temp Pulse Resp BP Pulse Ox 98.2 F 85 16 132/72 90 L 07/01/19 04:00 07/01/19 04:00 07/01/19 04:00 07/01/19 04:00 07/01/19 04:00 Laboratory Results - last 24 hr 06/29/19 09:15: Hepatitis A IgM Ab Negative, Hep Bs Antigen Negative, Hep B Core IgM Ab Negative, Hepatitis C Antibody <0.1 06/30/19 06:01: Hgb 10.6 L D 06/30/19 06:01: Calcium 8.1 L 06/30/19 06:01: Total Bilirubin 3.3 H, Direct Bilirubin 2.4 H, Indirect Bilirubin 0.9, AST 955 H* D, ALT 1153 H*, Alkaline Phosphatase 203 H, Total Protein 5.6 L, Albumin 2.7 L D 07/01/19 06:00: WBC 7.9, RBC 3.47 L, Hgb 10.0 L, Hct 31.6 L, MCV 91.1, MCH 29.0, MCHC 31.8, RDW 14.0, Plt Count 182, MPV 8.8, Neut % (Auto) 81.7 H, Lymph % (Auto) 11.9, [place] % (Auto) 4.7, Eos % (Auto) 1.4, Baso % (Auto) 0.3, Neut # (Auto) 6.5, Lymph # (Auto) 1.0, [place] # (Auto) 0.4, Eos # (Auto) 0.1, Baso # (Auto) 0.0 07/01/19 06:00: Sodium 142, Potassium 3.4 L, Chloride 111 H, Carbon Dioxide 20 L , Anion Gap 14.4, BUN 7, Creatinine 0.89, Estimated Creat Clear 45, Estimated GFR 62, Est GFR ( Amer) 74, Glucose 86, Calcium 7.9 L, Total Bilirubin 1.4 H, Direct Bilirubin 0.9 H, Indirect Bilirubin 0.5, AST 325 H* D, ALT 622 H*, Alkaline Phosphatase 179 H, Total Protein 5.4 L, Albumin 2.5 L, Globulin 2.9, Albumin/Globulin Ratio 0.9 L I & O for Last 24 hours: Intake & Output 06/28/19 06/29/19 06/30/19 07/01/19 11:59 11:59 11:59 11:59 Intake Total 2632 / 2632 3373 / 3373 Balance 2632 / 2632 3373 / 3373 Weight 140 lb 130 lb 3 oz 134 lb 1 oz - *Routine Abdominal Exam Present: soft Progress Note: A&P (1) Acute cholecystitis Status: Acute Assessment and plan: Labs pending. If showing improvement tentatively plan for cholecystectomy with cholangiogram this morning. Current Visit: Yes (2) Sepsis Status: Acute Current Visit: Yes (3) Elevated LFTs Status: Acute Current Visit: Yes (4) HLD (hyperlipidemia) Status: Chronic Current Visit: No (5) Memory deficit Status: Acute Current Visit: Yes
--- NOTE | 2019-07-01 12:06 | Operative Note ---
Date of procedure: 07/01/19 Pre-op Diagnosis:: Acute cholecystitis Post-op Diagnosis:: Acute cholecystitis with choledocholithiasis Procedure performed:: Laparoscopic cholecystectomy with intraoperative cholangiogram Surgeon:: Bogdan Mijares MD Anesthesia: TAMIKO Estimated blood loss (mL): 25 Clinical Note:: Patient is a 78-year-old female who is a resident at [facility]. She is quite a poor historian. She had presented to the emergency department in the late evening of 06/28/2019 with chest pain. Work-up at that time was unremarkable. She did have normal liver function tests at that time. She presented to the emergency department the following morning stating that she felt "sick". She was found to have appreciable elevation of liver function test with elevated transaminases and bilirubin of 2.0 at that time. She underwent CT scan of the abdomen which revealed findings of edematous distended gallbladder consistent with acute cholecystitis. She was admitted for inpatient management. She underwent confirmatory gallbladder ultrasound which revealed gallstones and gallbladder wall thickening. Common bile duct was normal. Following morning consideration was being given for possible cholecystectomy with intraoperative cholangiogram. However, she had further increase in her liver function tests with bilirubin to 3.4 and elevation of transaminases. Of note, she did undergo acute viral hepatitis serology which was negative. She underwent an MRCP which revealed no obvious stone or filling defect or obstruction. Following morning her liver function tests showed dramatic improvement with near normalization of bilirubin. Plan was made to proceed with cholecystectomy with intraoperative cholangiogram. Operative findings:: She had a distended edematous gallbladder with pericholecystic fluid and omental adhesions to the gallbladder. Cholangiogram revealed findings consistent with distal common bile duct stone. Operative note:: Patient was taken to the operating room. She was positioned in a supine position. General anesthesia was induced via endotracheal tube. Her abdomen was prepped and draped in the standard surgical fashion. Since she had a rather large low midline scar 1 mm incision was made in the left subcostal region and Veress needle was inserted. CO2 pneumoperitoneum was achieved to 15 mmHg. 11 mm trocar was inserted at the umbilicus. Intraperitoneal contents were visualized. She was positioned in reverse Trendelenburg left side down. A couple of 5 mm trochars were inserted in the right upper abdomen. 10 mm trocar was inserted in the epigastrium. Gallbladder was grasped retracted anteriorly and superiorly over the dome of the liver. Gallbladder was markedly edematous and distended. Omental adhesions were taken down using blunt dissection. Infundibulum/Iniguez's pouch of the gallbladder was retracted anterior laterally. Blunt dissection was carried out at the neck of the gallbladder bluntly incising the visceral peritoneum. There was an acute inflammatory response around the cystic structures. Ultimately the cystic duct and cystic artery were isolated and dissected free. Hemoclip was placed proximal to the gallbladder. Through approximately a 2 mm incision in the right subcostal area cholangiocatheter introducer was inserted. Small incision was made in the cystic duct. Cholangiocatheter was inserted into the cystic duct where it was secured with a couple of hemoclips. Patient was positioned in a neutral position. Intraoperative cholangiogram was performed initially with dilute contrast followed by full-strength contrast. There was generous caliber of the biliary radicles with filling of the biliary tree. There was no evidence of flow of contrast into the duodenum. The catheter was flushed. There was still no evidence of any flow of contrast into the duodenum. This was felt to be consistent with stone in the distal common bile duct. Plan will be for early postoperative ERCP. The cholangiocatheter was removed. Multiple clips were placed on the cystic duct. Cystic duct was sharply divided. Cystic artery was carefully coagulated with GIANCARLO ultrasonic harmonic nikkie and divided. Gallbladder was dissected free from the liver in a retrograde fashion using GIANCARLO ultrasonic harmonic nikkie. Gallbladder was placed within an Endo Catch retrieval device and removed from the peritoneal cavity via the umbilical trocar site. Gallbladder fossa and perihepatic space were irrigated and aspirated until clear. Trochars were removed. CO2 pneumoperitoneum was evacuated. Fascia at the umbilicus was closed with several interrupted 0 Vicryl sutures. Local anesthetic was infiltrated. Skin incisions were closed with 4-0 Monocryl in a subcuticular fashion. Steri-Strips and dressings were applied. Condition: stable Disposition: PACU Specimens:: Gallbladder and contents Complications:: None immediately apparent
--- NOTE | 2019-07-01 12:16 | Progress Note ---
[facility] Anesthesia Checklist - Patient Identification Patient Identification: Arm Band - Structural Data Admitted From: Home Planned Operative Procedure/s: lap manjula Consent for Planned Operative Procedure(s) Verified: Yes Verified Documents: Surgical Consent, History and Physical - NPO Status Verified Time NPO: 00:00 - Additional verifications Anesthesia Reactions: No - Airway Assessment C-Spine Mobility Assessed: Yes TMJ Mobility Assessed: Yes Dentition: Edentulous - Neurological Assessment Level of Consciousness: Awake, Alert - Anesthesia Plan Anesthesia Risk discussed: Yes Anesthesia Plan: Verified ASA Class: II Anesthesia Type: General Acuity:: non emergent [facility] History I have reviewed the patient's past medical history: Yes Medical History: Reports:: Anxiety, Chronic Obstructive Pulmonary Disease (COPD), Depression, Hyperlipidemia Denies:: Diabetes Mellitus Type 1, Diabetes Mellitus Type 2 *Have you ever received a pneumonia vaccine?: No (unsure) *Have you received a flu vaccine this season?: No (unsure) Other Medical History: Reports: Anemia Anesthesia experience/problems:: nac Other Surgeries: Yes: Appendectomy, Cardiac Catheterization - *Social History Smoking Status: Never smoker Alcohol Intake: never Substance Use Type: denies use *Occupational Status:: disabled *Travel in the last 8 weeks: None - Psychiatric History Pschychiatric History:: Reports:: Anxiety, Depression Family Hx:: No significant family history
--- NOTE | 2019-07-01 12:18 | Progress Note ---
[facility] Anesthesia Record Part II Discharge Time: 12:40 Destination: 2nd floor PACU nurse assessment reviewed?: Yes Patient Condition:: Good Anesthesia Complications:: None Swallowing reflex intact?: Yes Cyanosis?: No
--- NOTE | 2019-07-01 12:18 | Progress Note ---
[facility] Anesthesia Record Part I Intake, IV Amount: 1,000 Estimated blood loss (mL): 10 Urine output (mL): 0 Blood Pressure: 149/75 SaO2: 95 Pulse Rate: 115 Respiratory Rate: 16 Temperature: 97.8 F Patient is:: Drowsy, Stable Stable to PACU at:: 12:10
--- NOTE | 2019-07-01 13:57 | Progress Note ---
Internal Medicine - PN: Subj *Date: 07/02/19 *Time: 07:37 Interval history: pt to have gb surg today Exam Vital signs and Labs for Last 24 Hours: Temp Pulse Resp BP Pulse Ox 97.9 F 83 16 159/88 H 93 L 07/01/19 13:41 07/01/19 13:41 07/01/19 13:41 07/01/19 13:41 07/01/19 13:41 Laboratory Results - last 24 hr 07/01/19 06:00: WBC 7.9, RBC 3.47 L, Hgb 10.0 L, Hct 31.6 L, MCV 91.1, MCH 29.0, MCHC 31.8, RDW 14.0, Plt Count 182, MPV 8.8, Neut % (Auto) 81.7 H, Lymph % (Auto) 11.9, Leslie % (Auto) 4.7, Eos % (Auto) 1.4, Baso % (Auto) 0.3, Neut # (Auto) 6.5, Lymph # (Auto) 1.0, Leslie # (Auto) 0.4, Eos # (Auto) 0.1, Baso # (Auto) 0.0 07/01/19 06:00: Sodium 142, Potassium 3.4 L, Chloride 111 H, Carbon Dioxide 20 L , Anion Gap 14.4, BUN 7, Creatinine 0.89, Estimated Creat Clear 45, Estimated GFR 62, Est GFR ( Amer) 74, Glucose 86, Calcium 7.9 L, Total Bilirubin 1.4 H, Direct Bilirubin 0.9 H, Indirect Bilirubin 0.5, AST 325 H* D, ALT 622 H*, Alkaline Phosphatase 179 H, Total Protein 5.4 L, Albumin 2.5 L, Globulin 2.9, Albumin/Globulin Ratio 0.9 L I & O for Last 24 hours: Intake & Output 06/29/19 06/30/19 07/01/19 07/02/19 11:59 11:59 11:59 11:59 Intake Total 2632 / 2632 3373 / 3373 1000 / 1000 Balance 2632 / 2632 3373 / 3373 1000 / 1000 Weight 140 lb 130 lb 3 oz 134 lb 1 oz Microbiology Reports for the Last 24 Hours: Microbiology 06/29/19 09:15 Blood Blood Culture - Preliminary NO GROWTH AFTER 48 HOURS 06/29/19 09:40 Blood Blood Culture - Preliminary NO GROWTH AFTER 48 HOURS - Constitutional no acute distress - *Routine HEENT Exam Head: Present: normocephalic Eye: Present: EOMI, PERRL ENT: Present: mucous membranes dry - *Routine Neck Exam Absent: JVD - *Routine Respiratory Exam Present: CTA bilaterally - *Routine Cardiovascular Exam Present: RRR - *Routine Abdominal Exam Present: soft - *Routine Extremities Exam Absent: calf tenderness - *Routine Skin Exam Present: intact - *Routine Neurological Exam Present: alert - Routine Psychiatric Exam Present: normal affect Assessment and Plan (1) Acute cholecystitis Current visit: Yes Status: Deleted Category: Medical Code(s): K81.0 - Acute cholecystitis (2) Sepsis Current visit: Yes Status: Acute Qualifiers: Sepsis type: sepsis due to unspecified organism Sepsis acute organ dysfunction status: without acute organ dysfunction Qualified Code(s): A41.9 - Sepsis, unspecified organism Category: Medical Code(s): A41.9 - Sepsis, unspecified organism (3) Elevated LFTs Current visit: Yes Status: Acute Category: Medical Code(s): R94.5 - Abnormal results of liver function studies (4) HLD (hyperlipidemia) Current visit: No Status: Chronic Qualifiers: Hyperlipidemia type: mixed hyperlipidemia Qualified Code(s): E78.2 - Mixed hyperlipidemia Category: Medical Code(s): E78.5 - Hyperlipidemia, unspecified (5) Memory deficit Current visit: Yes Status: Acute Category: Medical Code(s): R41.3 - Other amnesia
--- NOTE | 2019-07-02 06:47 | Progress Note ---
Subjective Patient reports: no new complaints Exam Vital signs and Labs for Last 24 Hours: Temp Pulse Resp BP Pulse Ox 99.1 F 109 H 16 159/84 H 93 L 07/02/19 04:00 07/02/19 04:00 07/02/19 04:00 07/02/19 04:00 07/02/19 04:00 Laboratory Results - last 24 hr 07/01/19 06:00: Sodium 142, Potassium 3.4 L, Chloride 111 H, Carbon Dioxide 20 L , Anion Gap 14.4, BUN 7, Creatinine 0.89, Estimated Creat Clear 45, Estimated GFR 62, Est GFR ( Amer) 74, Glucose 86, Calcium 7.9 L, Total Bilirubin 1.4 H, Direct Bilirubin 0.9 H, Indirect Bilirubin 0.5, AST 325 H* D, ALT 622 H*, Alkaline Phosphatase 179 H, Total Protein 5.4 L, Albumin 2.5 L, Globulin 2.9, Albumin/Globulin Ratio 0.9 L I & O for Last 24 hours: Intake & Output 06/29/19 06/30/19 07/01/19 07/02/19 11:59 11:59 11:59 11:59 Intake Total 2632 / 2632 3573 / 3573 1527 / 1527 Output Total 150 / 150 Balance 2632 / 2632 3573 / 3573 1377 / 1377 Weight 140 lb 130 lb 3 oz 134 lb 1 oz 134 lb 9 oz Microbiology Reports for the Last 24 Hours: Microbiology 06/29/19 09:15 Blood Blood Culture - Preliminary NO GROWTH AFTER 48 HOURS 06/29/19 09:40 Blood Blood Culture - Preliminary NO GROWTH AFTER 48 HOURS - Constitutional no acute distress - *Routine Respiratory Exam Absent: respiratory distress - *Routine Abdominal Exam Comments: Dressings intact. No spreading cellulitis. Progress Note: A&P (1) Sepsis Status: Acute Current Visit: Yes (2) Elevated LFTs Status: Acute Current Visit: Yes (3) HLD (hyperlipidemia) Status: Chronic Current Visit: No (4) Memory deficit Status: Acute Current Visit: Yes (5) Choledocholithiasis with acute cholecystitis with obstruction Status: Acute Assessment and plan: Overall, doing well status post laparoscopic cholecystectomy with intraoperative cholangiogram. Obstruction noted on cholangiogram. NPO after midnight for likely ERCP tomorrow Continue antibiotics for now (Flagyl can likely be discontinued) Follow-up pending AM labs Current Visit: Yes
[2019-07-02 07:31] LABS: Albumin Level 2.4 gm/dL (3.4-5.0); Albumin/Globulin Ratio 0.8 (1.1-1.8); Anion Gap 13.1 mEq/L (5-15); Bilirubin,Total 2.6 mg/dL (0.2-1.0); Calcium 7.7 mg/dL (8.5-10.1); Total Protein,Serum 5.4 gm/dL (6.4-8.2)
--- NOTE | 2019-07-02 07:31 | Progress Note ---
Internal Medicine - PN: Subj *Date: 07/02/19 *Time: 07:31 Exam Vital signs and Labs for Last 24 Hours: Temp Pulse Resp BP Pulse Ox 99.1 F 109 H 16 159/84 H 93 L 07/02/19 04:00 07/02/19 04:00 07/02/19 04:00 07/02/19 04:00 07/02/19 04:00 I & O for Last 24 hours: Intake & Output 06/29/19 06/30/19 07/01/19 07/02/19 23:59 23:59 23:59 23:59 Intake Total 844 / 844 3618 / 3618 3270 / 3270 1347 / 1347 Output Total 150 / 150 Balance 844 / 844 3618 / 3618 3270 / 3270 1197 / 1197 Weight 57.635 kg 59.052 kg 60.81 kg 61.037 kg Microbiology Reports for the Last 24 Hours: Microbiology 06/29/19 09:15 Blood Blood Culture - Preliminary NO GROWTH AFTER 48 HOURS 06/29/19 09:40 Blood Blood Culture - Preliminary NO GROWTH AFTER 48 HOURS Assessment and Plan (1) Sepsis Current visit: Yes Status: Acute Qualifiers: Sepsis type: sepsis due to unspecified organism Sepsis acute organ dysfunction status: without acute organ dysfunction Qualified Code(s): A41.9 - Sepsis, unspecified organism Category: Medical Code(s): A41.9 - Sepsis, unspecified organism (2) Elevated LFTs Current visit: Yes Status: Acute Category: Medical Code(s): R94.5 - Abnormal results of liver function studies (3) HLD (hyperlipidemia) Current visit: No Status: Chronic Qualifiers: Hyperlipidemia type: mixed hyperlipidemia Qualified Code(s): E78.2 - Mixed hyperlipidemia Category: Medical Code(s): E78.5 - Hyperlipidemia, unspecified (4) Memory deficit Current visit: Yes Status: Acute Category: Medical Code(s): R41.3 - Other amnesia (5) Choledocholithiasis with acute cholecystitis with obstruction Current visit: Yes Status: Acute Category: Medical Code(s): K80.43 - Calculus of bile duct with acute cholecystitis with obstruction The patient's infection will respond to the chosen ABx?: Yes Is the patient receiving the right drug, dose, and route?: Yes Could a more targeted ABx be ordered?: No
--- NOTE | 2019-07-02 09:34 | Progress Note ---
Internal Medicine - PN: Subj *Date: 07/02/19 *Time: 09:44 Interval history: 78-year-old female patient resting in bed quietly. 07/01/2019 she had a laparoscopic cholecystectomy with intraoperative cholangiogram. Obstruction noted on cholangiogram. Today, multiple dressings to abdomen clean dry and intact, she reports she is feeling better, reports pain is at a tolerable level. General surgery seen this morning and recommends ERCP in the a.m. Patient is aware and is agreeable to this Exam Vital signs and Labs for Last 24 Hours: Temp Pulse Resp BP Pulse Ox 99.1 F 109 H 16 159/84 H 93 L 07/02/19 04:00 07/02/19 04:00 07/02/19 04:00 07/02/19 04:00 07/02/19 04:00 Laboratory Results - last 24 hr 07/02/19 06:58: Sodium 142, Potassium 3.1 L, Chloride 109 H, Carbon Dioxide 23, Anion Gap 13.1, BUN 5 L D, Creatinine 0.85, Estimated Creat Clear 45, Estimated GFR 65, Est GFR ( Amer) 78, Glucose 119 H, Calcium 7.7 L, Total Bilirubin 2.6 H, AST 180 H D, ALT 433 H*, Alkaline Phosphatase 248 H, Total Protein 5.4 L, Albumin 2.4 L, Globulin 3.0, Albumin/Globulin Ratio 0.8 L I & O for Last 24 hours: Intake & Output 06/29/19 06/30/19 07/01/19 07/02/19 23:59 23:59 23:59 23:59 Intake Total 844 / 844 3618 / 3618 3270 / 3270 1347 / 1347 Output Total 150 / 150 Balance 844 / 844 3618 / 3618 3270 / 3270 1197 / 1197 Weight 127 lb 1 oz 130 lb 3 oz 134 lb 1 oz 134 lb 9 oz Microbiology Reports for the Last 24 Hours: Microbiology 06/29/19 09:15 Blood Blood Culture - Preliminary NO GROWTH AFTER 48 HOURS 06/29/19 09:40 Blood Blood Culture - Preliminary NO GROWTH AFTER 48 HOURS - Constitutional no acute distress - *Routine HEENT Exam Head: Present: normocephalic. Absent: scalp tenderness, tenderness of temporal artery Eye: Present: EOMI, PERRL, normal accommodation. Absent: exophthalmos - *Routine Neck Exam Present: supple, full ROM, trachea midline. Absent: JVD, tracheal deviation - *Routine Respiratory Exam Present: accessory muscle use, CTA bilaterally. Absent: rales - *Routine Cardiovascular Exam Present: RRR - *Routine Abdominal Exam Present: soft, normoactive bowel sounds, tenderness, wound Comments: Multiple dressings to Abd C/D/I - *Routine Extremities Exam Present: pulses intact. Absent: calf tenderness - Routine Back/Spine/Pelvis Exam Back/Spine: Present: full ROM. Absent: CVA tenderness - *Routine Skin Exam Present: warm, wounds. Absent: erythema Comments: Multiple dressings to Abd C/D/I - *Routine Neurological Exam Present: alert, CN II-XII intact. Absent: pronator drift, tremors - Routine Psychiatric Exam Present: normal affect. Absent: auditory hallucinations, visual hallucinations Assessment and Plan (1) Acute cholecystitis Current visit: Yes Status: Deleted Category: Medical Code(s): K81.0 - Acute cholecystitis (2) Sepsis Current visit: Yes Status: Acute Qualifiers: Sepsis type: sepsis due to unspecified organism Sepsis acute organ dysfunction status: without acute organ dysfunction Qualified Code(s): A41.9 - Sepsis, unspecified organism Category: Medical Code(s): A41.9 - Sepsis, unspecified organism (3) Elevated LFTs Current visit: Yes Status: Acute Category: Medical Code(s): R94.5 - Abnormal results of liver function studies (4) HLD (hyperlipidemia) Current visit: No Status: Chronic Qualifiers: Hyperlipidemia type: mixed hyperlipidemia Qualified Code(s): E78.2 - Mixed hyperlipidemia Category: Medical Code(s): E78.5 - Hyperlipidemia, unspecified (5) Memory deficit Current visit: Yes Status: Acute Category: Medical Code(s): R41.3 - Other amnesia - Assessment and plan all Dx Assessment and Plan for all problems:: Rounded with Dr. Sanchez, all orders per Dr. Sanchez General surgery has seen and recommends: NPO after midnight for likely ERCP tomorrow Continue antibiotics for now (Flagyl can likely be discontinued) Follow-up pending AM labs Is the patient receiving the right drug, dose, and route?: Yes Could a more targeted ABx be ordered?: No
--- NOTE | 2019-07-02 09:41 | Progress Note ---
Subjective Date: 07/02/19 Time: 09:38 Principal diagnosis: cholecystitis Interval history: 78-year-old white female in bed in no acute distress. She denies any chest pain, pressure or tightness. Review of notes shows patient did have cholecystectomy with cholangiogram yesterday with plans for ERCP tomorrow due to stones in the bile duct. Blood pressure has been elevated and patient has procedure been receiving labetalol as needed. Exam Vital signs and Labs for Last 24 Hours: Temp Pulse Resp BP Pulse Ox 99.1 F 109 H 16 159/84 H 93 L 07/02/19 04:00 07/02/19 04:00 07/02/19 04:00 07/02/19 04:00 07/02/19 04:00 Laboratory Results - last 24 hr 07/02/19 06:58: Sodium 142, Potassium 3.1 L, Chloride 109 H, Carbon Dioxide 23, Anion Gap 13.1, BUN 5 L D, Creatinine 0.85, Estimated Creat Clear 45, Estimated GFR 65, Est GFR ( Amer) 78, Glucose 119 H, Calcium 7.7 L, Total Bilirubin 2.6 H, AST 180 H D, ALT 433 H*, Alkaline Phosphatase 248 H, Total Protein 5.4 L, Albumin 2.4 L, Globulin 3.0, Albumin/Globulin Ratio 0.8 L I & O for Last 24 hours: Intake & Output 06/29/19 06/30/19 07/01/19 07/02/19 11:59 11:59 11:59 11:59 Intake Total 2632 / 2632 3573 / 3573 2874 / 2874 Output Total 150 / 150 Balance 2632 / 2632 3573 / 3573 2724 / 2724 Weight 140 lb 130 lb 3 oz 134 lb 1 oz 134 lb 9 oz Microbiology Reports for the Last 24 Hours: Microbiology 06/29/19 09:15 Blood Blood Culture - Preliminary NO GROWTH AFTER 48 HOURS 06/29/19 09:40 Blood Blood Culture - Preliminary NO GROWTH AFTER 48 HOURS - *Routine HEENT Exam Head: Present: normocephalic Eye: Present: EOMI, PERRL ENT: Present: mucous membranes moist - *Routine Respiratory Exam Present: CTA bilaterally. Absent: accessory muscle use, rales, rhonchi, wheezes - *Routine Cardiovascular Exam Present: RRR. Absent: murmur, gallop, rubs - *Routine Neurological Exam Present: alert, oriented X3, moving all extremities Progress Note: A&P (1) Acute cholecystitis Status: Deleted Current Visit: Yes (2) Sepsis Status: Acute Current Visit: Yes (3) Elevated LFTs Status: Acute Current Visit: Yes (4) HLD (hyperlipidemia) Status: Chronic Current Visit: No (5) Memory deficit Status: Acute Current Visit: Yes Assessment and Plan for All Diagnoses:: 1. We will add metoprolol succinate 25 mg daily to help with blood pressure and heart rate control. 2. Supplemental potassium due to hypokalemia 3. Continue to follow from a distance.
[2019-07-03 07:43] LABS: Basophils % 0.4 % (0.1-2.0); Eosinophils # 0.2 K/mm3 (0.0-0.4); Eosinophils % 3.1 % (0.1-12.0); Hematocrit 33.1 % (37.0-47.0); Hemoglobin 10.4 g/dL (12.2-16.2); Lymphocytes # 1.2 K/mm3 (0.7-4.5); Lymphocytes % 15.7 % (10-50); Mean Corpuscular HGB Conc 31.4 g/dL (31.8-35.4); Mean Corpuscular Volume 91.1 fl (81-99); Mean Platelet Volume 9.6 fl (7.4-10.4); Monocytes # 0.5 K/mm3 (0.1-1.0); Monocytes % 6.4 % (1.7-9.3); Neutrophils # 5.6 K/mm3 (1.8-7.8); Neutrophils % 74.4 % (37.0-80.0); Platelet Count 206 K/mm3 (142-424); Red Blood Count 3.63 M/mm3 (4.20-5.40); Red Cell Distribution Width 14.3 % (11.5-17.5); White Blood Count 7.5 K/mm3 (4.8-10.8)
[2019-07-03 08:15] LABS: Albumin Level 2.4 gm/dL (3.4-5.0); Albumin/Globulin Ratio 0.7 (1.1-1.8); Anion Gap 11.9 mEq/L (5-15); Bilirubin,Total 1.2 mg/dL (0.2-1.0); Calcium 7.7 mg/dL (8.5-10.1); Globulin 3.3 gm/dl (1.3-3.2); Total Protein,Serum 5.7 gm/dL (6.4-8.2)
--- NOTE | 2019-07-03 08:49 | Progress Note ---
Internal Medicine - PN: Subj *Date: 07/03/19 *Time: 08:46 Interval history: Patient laying in bed denies any pain or discomfort. Plan for ERCP today and [facility] Exam Vital signs and Labs for Last 24 Hours: Temp Pulse Resp BP Pulse Ox 98.9 F 73 16 179/80 H 92 L 07/03/19 08:00 07/03/19 08:00 07/03/19 08:00 07/03/19 08:00 07/03/19 08:00 Laboratory Results - last 24 hr 07/03/19 07:13: WBC 7.5, RBC 3.63 L, Hgb 10.4 L, Hct 33.1 L, MCV 91.1, MCH 28.7, MCHC 31.4 L, RDW 14.3, Plt Count 206, MPV 9.6, Neut % (Auto) 74.4, Lymph % (Auto) 15.7, [place] % (Auto) 6.4, Eos % (Auto) 3.1, Baso % (Auto) 0.4, Neut # (Auto) 5.6, Lymph # (Auto) 1.2, [place] # (Auto) 0.5, Eos # (Auto) 0.2, Baso # (Auto) 0.0 07/03/19 07:13: Sodium 142, Potassium 2.9 L*, Chloride 108 H, Carbon Dioxide 25, Anion Gap 11.9, BUN 3 L D, Creatinine 0.70, Estimated Creat Clear 46, Estimated GFR 81, Est GFR ( Amer) 98 D, Glucose 84, Calcium 7.7 L, Total Bilirubin 1.2 H, AST 104 H D, ALT 331 H*, Alkaline Phosphatase 243 H, Total Protein 5.7 L, Albumin 2.4 L, Globulin 3.3 H, Albumin/Globulin Ratio 0.7 L I & O for Last 24 hours: Intake & Output 06/30/19 07/01/19 07/02/19 07/03/19 11:59 11:59 11:59 11:59 Intake Total 2632 / 2632 3573 / 3573 2874 / 2874 3321 / 3321 Output Total 150 / 150 Balance 2632 / 2632 3573 / 3573 2724 / 2724 3321 / 3321 Weight 130 lb 3 oz 134 lb 1 oz 134 lb 9 oz 136 lb 7 oz - Constitutional no acute distress, chronically ill appearing - *Routine HEENT Exam Head: Present: normocephalic Eye: Present: PERRL ENT: Present: mucous membranes moist - *Routine Neck Exam Present: supple. Absent: lymphadenopathy - *Routine Respiratory Exam Present: CTA bilaterally - *Routine Cardiovascular Exam Present: RRR - *Routine Abdominal Exam Present: soft, normoactive bowel sounds. Absent: tenderness - *Routine Extremities Exam Present: full ROM. Absent: cyanosis, clubbing, edema - *Routine Skin Exam Present: warm. Absent: rash - *Routine Neurological Exam Present: alert, oriented X3 - Routine Psychiatric Exam Present: normal affect Assessment and Plan (1) Acute cholecystitis Current visit: Yes Status: Deleted Category: Medical Code(s): K81.0 - Acute cholecystitis (2) Sepsis Current visit: Yes Status: Acute Qualifiers: Sepsis type: sepsis due to unspecified organism Sepsis acute organ dysfunction status: without acute organ dysfunction Qualified Code(s): A41.9 - Sepsis, unspecified organism Category: Medical Code(s): A41.9 - Sepsis, unspecified organism (3) Elevated LFTs Current visit: Yes Status: Acute Category: Medical Code(s): R94.5 - Abnormal results of liver function studies (4) HLD (hyperlipidemia) Current visit: No Status: Chronic Qualifiers: Hyperlipidemia type: mixed hyperlipidemia Qualified Code(s): E78.2 - Mixed hyperlipidemia Category: Medical Code(s): E78.5 - Hyperlipidemia, unspecified (5) Memory deficit Current visit: Yes Status: Acute Category: Medical Code(s): R41.3 - Other amnesia - Assessment and plan all Dx Assessment and Plan for all problems:: Daniel will round later today all orders per Daniel ERCP today by Terri Replace potassium Possible [facility] back to [facility] tomorrow
--- NOTE | 2019-07-03 14:53 | Procedure Note ---
[facility] Procedure Note Procedure Note:: ERCP procedure Report: Endoscopic retrograde cholangiopancreatography with biliary sphincterotomy and balloon extraction Endoscopist: Olvin Murray II, MD Referring Physician: Bogdan Mijares MD/Bismark Sanchez MD Date of Procedure: July 03, 2019 Equipment: Olympus 180 side viewing endoscope duodenoscope Sedation: MAC sedation Indication: Mrs. Walters is a 78-year-old female who is a resident of [facility]. She came in on June 28, 2019 with chest pain. She felt sick. She had markedly elevated liver chemistries and her transaminases were moderately elevated with an ALT level 1153 and AST level of 955. The initial bilirubin was 3.3. Imaging with CAT scan did show a distended gallbladder consistent with acute cholecystitis. The common bile duct was normal. And ultrasound of the gallbladder revealed gallstones and gallbladder wall thickening. The patient's labs improved over the next 3 days and today the patient's total bilirubin was 1.4. The transaminases have markedly improved. The patient did have cholecystectomy and the operative findings did show acute cholecystitis. The intraoperative cholangiogram imaging showed nonfilling of contrast from the biliary system into the duodenum and appeared to have a filling defect in the distal common bile duct. ERCP was recommended. The patient overall is clinically improved. Procedure: Prior to the procedure, a history and physical exam was performed, and patient's medications and allergies were reviewed. The risks, benefits and alternatives of the sedation and procedure were discussed with the patient. All questions were answered and informed consent was obtained. The patient was brought to the fluoroscopic radiology room. Patient identification and proposed procedure were verified by the physician and the nurse. The patient was placed in a swimmer's position between left lateral decubitus and prone position and the scope was passed under direct vision. Throughout the procedure, the patient's blood pressure, pulse, and oxygen saturations were monitored continuously. The ERCP was accomplished without difficulty. The patient tolerated the procedure well. Findings: The side-viewing endoscope was passed directly into the upper esophagus and advanced to the second portion of the duodenum. There was a small hiatal hernia. There was mild reactive gastropathy. The duodenum was normal. The ampulla was well visualized. The pancreatic duct was initially cannulated and the pancreatogram showed a normal pancreatic duct that was 3 mm in the head of the gland with normal filling of the neck of the gland and accessory duct. Full filling with contrast was not performed. The common bile duct was selectively cannulated. The CBD was approximately 7 mm in diameter. There was normal filling of the intrahepatic biliary system. There appeared to be some sludge in the distal CBD and there was no flow of bile or contrast from the biliary system into the duodenum. The cystic duct stump was normal and there was no leak. There were no strictures or other abnormalities but there was no evidence of cholangitis. A generous biliary sphincterotomy was performed. Next a 9 to 12 mm sweeping balloon was placed at the hilum. This was reduced to about 8 to 9 mm and swept through the biliary system twice with the passage of alcocer bile and minimal debris. There was excellent biliary flow and decompression of the biliary system. Impression: 1. Minimal biliary sludge (minimal choledocholithiasis) but with an initial slow decompression and no flow of bile/contrast into duodenum (possible sphincter of Oddi dysfunction) status post biliary sphincterotomy and balloon clearance Plan: The patient's liver/biliary chemistries are significantly improving. I do believe that [facility] She can follow-up as needed.
--- NOTE | 2019-07-03 15:05 | Progress Note ---
[facility] Anesthesia Checklist - Patient Identification Patient Identification: Arm Band - Structural Data Admitted From: Inpatient Planned Operative Procedure/s: ercp Consent for Planned Operative Procedure(s) Verified: Yes Verified Documents: Surgical Consent, History and Physical - NPO Status Verified Time NPO: 00:00 - Additional verifications Anesthesia Reactions: No - Airway Assessment C-Spine Mobility Assessed: Yes (mp2) TMJ Mobility Assessed: Yes - Neurological Assessment Level of Consciousness: Awake, Alert - Anesthesia Plan Anesthesia Risk discussed: Yes Anesthesia Plan: Verified ASA Class: II Anesthesia Type: MAC Acuity:: non emergent [facility] History Medical History: Reports:: Anxiety, Chronic Obstructive Pulmonary Disease (COPD), Depression, Hyperlipidemia Denies:: Diabetes Mellitus Type 1, Diabetes Mellitus Type 2 *Have you ever received a pneumonia vaccine?: No (unsure) *Have you received a flu vaccine this season?: No (unsure) Other Medical History: Reports: Anemia Anesthesia experience/problems:: nac Other Surgeries: Yes: Appendectomy, Cardiac Catheterization - *Social History Smoking Status: Never smoker Alcohol Intake: never Substance Use Type: denies use *Occupational Status:: disabled *Travel in the last 8 weeks: None - Psychiatric History Pschychiatric History:: Reports:: Anxiety, Depression Family Hx:: No significant family history
--- NOTE | 2019-07-04 07:54 | Electrocardiograph Report ---
APPROVED REPORT Exam: Resting ECG HR:93 bpm ECG Measurements Heart Rate 93 AXES DC 130 P 39 QRSd 88 QRS 45 QT 292 T59 QTc 363 <Conclusion> Sinus rhythm with marked sinus arrhythmia Low voltage QRS Nonspecific T wave abnormality Abnormal ECG Electronically signed by : Hany Sanders, 07/04/2019 07:53:50
--- NOTE | 2019-07-04 10:50 | Progress Note ---
Subjective Patient reports: no new complaints, feels better Exam Vital signs and Labs for Last 24 Hours: Temp Pulse Resp BP Pulse Ox 97.8 F 67 20 184/88 H 97 07/04/19 08:00 07/04/19 08:00 07/04/19 08:00 07/04/19 08:00 07/04/19 08:00 Laboratory Results - last 24 hr 07/03/19 18:45: Stl Aeromonas (PCR) Not detected, Stl C. cayetanensis PCR Not detected, Stool Rotavirus (PCR) Not detected, Stl Adenov F 40/41 PCR Not detected, Stool Astrovirus (PCR) Not detected, Stool Campylobacter PCR Not detected, Stl C.difficile Tox PCR Not detected, Stool Cryptosporidium PCR Not detected, Stl E.coli Shiga Tox PCR Not detected, Stool E coli O157 PCR Not detected, Stl Enterotoxigenic E PCR Not detected, Stool EPEC (PCR) Not detected, Stool EAEC (PCR) Not detected, Stl E. histolytica PCR Not detected, Stool Giardia Lamblia PCR Not detected, Stool Salmonella PCR Not detected, Stool Sapovirus (PCR) Not detected, Stl P. shigelloides PCR Not detected, Stl Shigella/EIEC PCR Not detected, St Y.enterocolitica PCR Not detected, Stool Vibrio (PCR) Not detected, Stl Vibrio cholerae PCR Not detected, Stl Norovirus GI/GII PCR Not detected I & O for Last 24 hours: Intake & Output 07/01/19 07/02/19 07/03/19 07/04/19 11:59 11:59 11:59 11:59 Intake Total 3573 / 3573 2874 / 2874 3321 / 3321 3361 / 3361 Output Total 150 / 150 600 / 600 Balance 3573 / 3573 2724 / 2724 3321 / 3321 2761 / 2761 Weight 134 lb 1 oz 134 lb 9 oz 136 lb 7 oz 129 lb 9 oz Microbiology Reports for the Last 24 Hours: Microbiology 06/29/19 09:15 Blood Blood Culture - Final NO GROWTH AFTER 5 DAYS 06/29/19 09:40 Blood Blood Culture - Final NO GROWTH AFTER 5 DAYS - *Routine Abdominal Exam Present: soft Comments: Some bruising Progress Note: A&P (1) Acute cholecystitis Status: Deleted Current Visit: Yes (2) Sepsis Status: Acute Current Visit: Yes (3) Elevated LFTs Status: Acute Current Visit: Yes (4) HLD (hyperlipidemia) Status: Chronic Current Visit: No (5) Memory deficit Status: Acute Current Visit: Yes Assessment and Plan for All Diagnoses:: Okay for discharge today from surgical standpoint.
--- NOTE | 2019-07-04 12:38 | Discharge Summary ---
General - General Admission date:: 06/29/19 Discharge date: 07/04/19 HPI HPI: this wf from [facility] had had chest pain abd pain and was seen in the ed with no def acute finding and returned to [facility] and had abd pain with fever and vomiting - she was seen in the ed - pt was found to have acute gb disease and had sepsis - pt was admitted for ivf and abx and surg consult Hospital Course Hospital Course: XR CHOLANGIOGRAM OPERATIVE from 07/01/2019 FINDINGS: ERCP was performed by Dr. Murray. Fluoroscopy time: 1 minutes and 22 seconds Limited images demonstrate the endoscope in place with partial filling of the common bile duct and biliary radicles. No large common duct stones are apparent. The distal common bile duct is not well demonstrated on the images submitted. There was contrast injected into an accessory pancreatic duct with some minimal distension. The IMPRESSION: No large common duct stones apparent. No strictures demonstrated Mri of abd: IMPRESSION: Somewhat limited study due to motion artifact. No definite common duct stone evident. There is mild prominence of the biliary tree gallbladder us: IMPRESSION: Distended gallbladder with cholelithiasis and thickened gallbladder wall. No common duct dilatation or pericholecystic fluid demonstrated Surgery consult see note. Removal of gallbladder Cholangiogram see note Consulted GI see note Patient will be discharged back to [facility] today needs to follow-up with surgery next week. Will repeat CMP on Saturday. We will give 3 days of oral potassium. Objective Vital signs: Temp Pulse Resp BP Pulse Ox 97.8 F 67 20 184/88 H 96 07/04/19 08:00 07/04/19 08:00 07/04/19 08:00 07/04/19 08:00 07/04/19 08:00 no acute distress - *Routine HEENT Exam Head: Present: normocephalic Eye: Present: EOMI ENT: Present: mucous membranes moist - *Routine Respiratory Exam Present: CTA bilaterally - *Routine Cardiovascular Exam Present: RRR - *Routine Abdominal Exam Present: soft, normoactive bowel sounds Comments: Dressings to abdomen clean dry and intact - *Routine Extremities Exam Present: full ROM - *Routine Skin Exam Comments: Dressings to abdomen - *Routine Neurological Exam Present: alert, oriented X3 - Routine Psychiatric Exam Present: normal affect Results Labs on day of discharge: Labs from last 24 hours 07/03/19 18:45 Stl Aeromonas (PCR) Not detected Stl C. cayetanensis PCR Not detected Stool Rotavirus (PCR) Not detected Stl Adenov F 40/41 PCR Not detected Stool Astrovirus (PCR) Not detected Stool Campylobacter PCR Not detected Stl C.difficile Tox PCR Not detected Stool Cryptosporidium PCR Not detected Stl E.coli Shiga Tox PCR Not detected Stool E coli O157 PCR Not detected Stl Enterotoxigenic E PCR Not detected Stool EPEC (PCR) Not detected Stool EAEC (PCR) Not detected Stl E. histolytica PCR Not detected Stool Giardia Lamblia PCR Not detected Stool Salmonella PCR Not detected Stool Sapovirus (PCR) Not detected Stl P. shigelloides PCR Not detected Stl Shigella/EIEC PCR Not detected St Y.enterocolitica PCR Not detected Stool Vibrio (PCR) Not detected Stl Vibrio cholerae PCR Not detected Stl Norovirus GI/GII PCR Not detected - Additional Comments Rounded with Dr. Sanchez all orders per Daniel DS: Diagnosis - Discharge Diagnosis (1) Acute cholecystitis Status: Deleted (2) Sepsis Status: Acute (3) Elevated LFTs Status: Acute (4) HLD (hyperlipidemia) Status: Chronic (5) Memory deficit Status: Acute Discharge Plan - Patient Discharge Instructions ACTIVITY: No heavy lifting DIET: advance to your usual diet Patient Instructions: DI for Surgical Site Infection, Surgical Site Infection, Cholecystectomy -- Laparoscopic Surgery, DI for Sepsis -- Adult, Liver Function Tests, DI for Cholecystitis - Follow up Plan Follow up with: Bogdan Mijares MD [Staff Physician] - 07/20/19 Bismark Sanchez MD [Primary Care Provider] - 07/08/19 Disposition: Home, Self-Intermediate Medications: Home Medications Medication Instructions Recorded Confirmed Type albuterol sulfate HFA 90 2 puff INHALATION DAILYP PRN g 01/12/19 06/29/19 History mcg/actuation aerosol inhaler aspirin 81 mg chewable tablet 81 mg PO DAILY 01/12/19 06/29/19 History atorvastatin 40 mg tablet 40 mg PO HS 01/12/19 06/29/19 History donepezil 10 mg tablet 20 mg PO HS tab 01/12/19 06/29/19 History ergocalciferol (vitamin D2) 50,000 50,000 unit PO QWEEK 01/12/19 06/29/19 History unit capsule memantine 28 mg capsule 28 mg PO HS 01/12/19 06/29/19 History sprinkle,extended release 24hr multivitamin,tx-minerals tablet 1 tab PO DAILY 01/12/19 06/29/19 History omeprazole 20 mg capsule,delayed 20 mg PO DAILY 01/12/19 06/29/19 History release polyethylene glycol 3350 17 17 g PO BID 01/12/19 06/29/19 History gram/dose oral powder sertraline 100 mg tablet 100 mg PO DAILY 01/12/19 06/29/19 History tiotropium bromide 18 mcg capsule 1 cap INHALATION DAILY 01/12/19 06/29/19 History with inhalation device Acetaminophen [Acetaminophen 325mg 650 mg PO Q6HP PRN 06/29/19 06/29/19 History tab] Loperamide HCl [Loperamide] 2 mg PO Q3HP PRN 06/29/19 06/29/19 History Quetiapine Fumarate 50 mg PO HS 06/29/19 06/29/19 History Potassium Chloride [Klor-con 20 20 meq PO DAILY 3 Days tab 07/04/19 Rx mEq tablet] Prescriptions/Medication Reconciliation: New Potassium Chloride [Klor-con 20 mEq tablet] 20 meq PO DAILY 3 Days tab Continued aspirin 81 mg chewable tablet 81 mg PO DAILY atorvastatin 40 mg tablet 40 mg PO HS donepezil 10 mg tablet 20 mg PO HS tab memantine 28 mg capsule sprinkle,extended release 24hr 28 mg PO HS omeprazole 20 mg capsule,delayed release 20 mg PO DAILY polyethylene glycol 3350 17 gram/dose oral powder 17 g PO BID sertraline 100 mg tablet 100 mg PO DAILY tiotropium bromide 18 mcg capsule with inhalation device 1 cap INHALATION DAILY ergocalciferol (vitamin D2) 50,000 unit capsule 50,000 unit PO QWEEK albuterol sulfate HFA 90 mcg/actuation aerosol inhaler 2 puff INHALATION DAILYP PRN g PRN Reason: shortness of breath or wheezing multivitamin,tx-minerals tablet 1 tab PO DAILY Quetiapine Fumarate 50 mg PO HS Acetaminophen [Acetaminophen 325mg tab] 650 mg PO Q6HP PRN PRN Reason: As Needed For Fever Or Pain Discontinued Loperamide HCl [Loperamide] 2 mg PO Q3HP PRN PRN Reason: Diarrhea - Problem Reconciliation Problems Reviewed?: Yes
== END 2019-07-04 13:52 | disposition home or self-care (01) | DRG 419 ==
LOC: 2ND 08:48 → ER 08:48 → 2ND 12:26 → OBSVTOIN 12:27
PROVIDERS: ADMIT Emergency Medicine; ATTEND Emergency Medicine
CPT/HCPCS: 36415; 71020; 71046; 71260; 74177; 74181; 74300; 74330; 76376; 76705; 80048; 80053; 80074; 80076; 81001; 82150; 83605; 83690; 83735; 84484; 85007; 85025; 85651; 86140; 87040; 87507; 88304; 93005; 93306; 96365; 96374; 96375; 97162; 97165; 99285; J2405; J2543; J2710; Q9967

== ENCOUNTER 2020-03-03 00:37 | Emergency (ER) | payer MEDICARE, BC, SELFPAY ==
[2020-03-03] VITALS (10 sets, daily range): BP systolic 121–174; BP diastolic 69–112; PULSE 56–84; RESP 16–18; TEMP 36.4–36.9; O2SAT 96–97; BMI 20.5
--- NOTE | 2020-03-03 00:33 | ECG_ITS ---
APPROVED REPORT Exam: Resting ECG HR:60 bpm ECG Measurements Heart Rate 60 AXES IA 134 P 43 QRSd 90 QRS 46 QT 458 T 54 QTc 458 <Conclusion> Normal sinus rhythm Normal ECG Electronically signed by : Hany Sanders, 03/03/2020 10:08:20
--- NOTE | 2020-03-03 00:46 | CT_ITS ---
PROCEDURE: CT HEAD/BRAIN WO CON CLINICAL INDICATION: fall Posttraumatic pain, fall with injury and pain, headache the COMPARISON: HEADWO CT head/brain wo con from 02/07/2019 TECHNIQUE: Axial images obtained. All CT scans at the facility use one or more dose reduction, viz: automated exposure control, ma/kV adjustment per patient size (including targeted exams where dose is matched to indication, i.e. head), or iterative reconstruction technique. FINDINGS: No midline shift, mass effect, intracranial hemorrhage, or extra-axial fluid collection is evident. There is generalized atrophy with hypoattenuation of the periventricular white matter consistent with microangiopathic changes. Unchanged ventriculomegaly which may be related to normal pressure hydrocephalus which appears slightly out of context to the degree of atrophy. The calvarium has an unremarkable appearance. No mastoid effusion. No sinus air-fluid level. IMPRESSION: No change with no acute finding. Possible normal pressure hydrocephalus Dictated by: Sravan Stoll MD 03/03/2020 06:08 Electronically signed by Sravan Stoll MD in [facility] 03/03/2020 06:08
--- NOTE | 2020-03-03 00:46 | XR_ITS ---
PROCEDURE: XR PELVIS 1-2V CLINICAL INDICATION: fall Posttraumatic pain COMPARISON: Pelvis from 04/01/2019 TECHNIQUE: Posttraumatic pain FINDINGS: No fracture or dislocation is evident. No significant degenerative change. Francis catheter is present. IMPRESSION: No acute findings. Dictated by: Sravan Stoll MD 03/03/2020 06:05 Electronically signed by Sravan Stoll MD in [facility] 03/03/2020 06:05
--- NOTE | 2020-03-03 00:46 | CT_ITS ---
PROCEDURE: CT CERVICAL SPINE WO CON CLINICAL INDICATION: fall Neck pain following injury, fall with injury and pain, blunt trauma with contusion or hematoma COMPARISON: No exams were available for comparison TECHNIQUE: Axial images obtained with sagittal and coronal reformats. All CT scans at the facility use one or more dose reduction, viz: automated exposure control, ma/kV adjustment per patient size (including targeted exams where dose is matched to indication, i.e. head), or iterative reconstruction technique. Axial spiral CT scanning performed of the cervical spine beginning at the base of the skull and continuing to the upper T-spine. 3-D multiplanar reconstruction with 3-D manipulation of volumetric data set in image rendering was completed by the radiologist and/or technologist with the supervision of the radiologist on independent workstation. FINDINGS: There is kyphosis of the cervical thoracic spine. There is normal alignment. The no acute fracture or dislocation. There is mild multilevel degenerative disc disease and facet and uncovertebral arthrosis with multilevel lateral recess and foraminal narrowing. Degenerative disc disease with endplate hypertrophic change is present at C4-C5 C5-C6 and C6-C7. There is narrowing of the canal at C4-C5 at 10 mm and at C5-C6 at 7 mm and at C6-C7 at 10 mm. IMPRESSION: 1. No acute fracture. 2. Cervical spondylosis with canal stenosis Dictated by: Sravan Stoll MD 03/03/2020 06:12 Electronically signed by Sravan Stoll MD in [facility] 03/03/2020 06:12
--- NOTE | 2020-03-03 00:46 | XR_ITS ---
PROCEDURE: XR CHEST PORTABLE CLINICAL HISTORY: fall Posttraumatic pain, trauma protocol COMPARISON: CXR CHEST(2 VIEWS-NOT PORTABLE) from 07/10/2015 XR CHEST 2V from 06/28/2019 CT CHEST W CON from 06/29/2019 FINDINGS: There is mild prominence of the mediastinum however, the patient is moderately rotated. Nonrotated exam may provide further evaluation. Lungs are clear bilaterally. Normal heart size. No acute bony findings. . IMPRESSION: No definite acute finding. There is mild prominence of the mediastinum however this may be due to patient's rotation and may be confirmed with non rotated exam Dictated by: Sravan Stoll MD 03/03/2020 06:04 Electronically signed by Sravan Stoll MD in [facility] 03/03/2020 06:04
[2020-03-03 00:55] LABS: Microscopic, Urine URINE MICROSCOPIC (MICROSCOPIC)
[2020-03-03 00:58] LABS: Basophils # 0.1 K/mm3 (0-0.2); Basophils % 1.2 % (0.1-2.0); Eosinophils # 0.3 K/mm3 (0.0-0.4); Eosinophils % 4.7 % (0.1-12.0); Hematocrit 35.8 % (37.0-47.0); Lymphocytes # 2.3 K/mm3 (0.7-4.5); Mean Corpuscular HGB Conc 33.6 g/dL (31.8-35.4); Mean Corpuscular Hemoglobin 29.1 pg (27.0-31.2); Mean Corpuscular Volume 86.7 fl (81-99); Mean Platelet Volume 8.4 fl (7.4-10.4); Monocytes # 0.3 K/mm3 (0.1-1.0); Neutrophils # 3.1 K/mm3 (1.8-7.8); Neutrophils % 51.1 % (37.0-80.0); Platelet Count 313 K/mm3 (142-424); Red Blood Count 4.13 M/mm3 (4.20-5.40); White Blood Count 6.1 K/mm3 (4.8-10.8)
[2020-03-03 01:00] LABS: Appearance,Urine CLEAR (Clear); Bilirubin,Urine Negative (Negative); Blood, Urine Negative (Negative); Color,Urine YELLOW (Yellow); Glucose,Urine (UA) Negative (Negative); Ketones,Urine Negative (Negative); Leukocyte Esterase,Urine Negative (Negative); Nitrate,Urine Negative (Negative); Protein,Urine Negative (Negative); Specific Gravity, Urine 1.015 (1.005-1.030); Urobilinogen,Urine 0.2 EU/dl (0.2)
[2020-03-03 01:08] LABS: Bacteria,Urine Trace /lpf; WBC,Urine Occasional #/hpf (0-3)
[2020-03-03 01:13] LABS: Lactic Acid 1.4 mmol/L (0.7-2.1)
[2020-03-03 01:14] LABS: Alanine Aminotransferase 26 U/L (12-78); Albumin Level 3.9 g/dl (3.5-5.0); Albumin/Globulin Ratio 1.6 (1.1-1.8); Alkaline Phosphatase 126 U/L (38-126); Anion Gap 11.3 mEq/L (5-15); Aspartate Amino Transferase 39 U/L (14-36); Blood Urea Nitrogen 7 mg/dl (7-17); Calcium 9.2 mg/dl (8.4-10.2); Carbon Dioxide 28 mmol/L (22.0-30.0); Chloride 99 mmol/L (98-107); Creatinine Clearance Estimated 40 mL/min (50-200); Estimated Glomerular Filt Rate 81 ml/min (>60); GFR (African American) 98 ML/MIN (>60); Globulin 2.4 g/dL (1.3-3.2); Glucose 114 mg/dl (74-100); Potassium 3.3 mmoL/L (3.5-5.1); Sodium 135 mmol/L (136-145); Total Protein,Serum 6.3 g/dl (6.3-8.2)
[2020-03-03 01:17] LABS: Bilirubin,Total 0.1 mg/dl (0.2-1.3)
--- NOTE | 2020-03-03 01:19 | [facility].EDFALL ---
ED Disposition Clinical Impression: Fall Qualifiers: Encounter type: initial encounter Qualified Code(s): W19.XXXA - Unspecified fall, initial encounter Disposition: Home, Self-Care Condition on Discharge: Good Instructions: How to Prevent Falls Additional Instructions: resume prev orders Referrals: Bismark Sanchez MD [Primary Care Provider] - - Critical Care Critical Care Time: No Attestation: On 03/03/20, the high probability of a clinically significant, sudden or life threatening deterioration of the following system(s) required my full and direct attention, intervention and personal management. The time I documented below is in addition to time spent performing reported procedures but includes the following listed in this critical care notation. Medical Decision Making - Medical Records Medical records reviewed: Yes: I reviewed the patient's medical records. - Edward Inquiry Pt receiving controlled substance: No Vital Signs: 03/03/20 00:37 03/03/20 02:01 03/03/20 02:25 Temperature 97.6 F Temperature Source Rectal Pulse Rate [Right Brachial] 62 84 63 Respiratory Rate 17 16 17 Blood Pressure [Right Arm] 160/70 H 174/79 H 163/69 H Blood Pressure Mean [Right Arm] 100 110 100 Blood Pressure Source [Right Arm] Automatic Cuff Automatic Cuff Automatic Cuff Blood Pressure Position [Right Arm] Sitting Sitting Sitting 02 Sat by Pulse Oximetry 96 96 96 Oxygen Delivery Method Room Air Room Air Room Air 03/03/20 03:30 03/03/20 03:52 03/03/20 04:41 Temperature Temperature Source Pulse Rate [Right Brachial] 62 57 L 58 L Respiratory Rate 16 16 16 Blood Pressure [Right Arm] 127/69 121/83 135/78 Blood Pressure Mean [Right Arm] 88 95 97 Blood Pressure Source [Right Arm] Automatic Cuff Automatic Cuff Automatic Cuff Blood Pressure Position [Right Arm] Sitting Sitting Sitting 02 Sat by Pulse Oximetry 96 97 96 Oxygen Delivery Method Room Air Room Air Room Air 03/03/20 05:15 03/03/20 05:55 03/03/20 06:27 Temperature Temperature Source Pulse Rate [Right Brachial] 58 L 56 L 59 L Respiratory Rate 16 16 16 Blood Pressure [Right Arm] 138/79 151/112 H 147/89 H Blood Pressure Mean [Right Arm] 98 125 108 Blood Pressure Source [Right Arm] Automatic Cuff Automatic Cuff Automatic Cuff Blood Pressure Position [Right Arm] Sitting Sitting Sitting 02 Sat by Pulse Oximetry 96 97 96 Oxygen Delivery Method Room Air Room Air Room Air - Lab Data Lab results reviewed: Yes: I reviewed the patient's lab results. Lab Results 03/03/20 00:40: WBC 6.1, RBC 4.13 L, Hgb 12.0 L, Hct 35.8 L, MCV 86.7, MCH 29.1, MCHC 33.6, RDW 13.0, Plt Count 313, MPV 8.4, Neut % (Auto) 51.1, Lymph % (Auto) 38.0, [place] % (Auto) 5.0, Eos % (Auto) 4.7, Baso % (Auto) 1.2, Neut # (Auto) 3.1, Lymph # (Auto) 2.3, [place] # (Auto) 0.3, Eos # (Auto) 0.3, Baso # (Auto) 0.1 03/03/20 00:40: Sodium 135 L, Potassium 3.3 L, Chloride 99, Carbon Dioxide 28, Anion Gap 11.3, BUN 7, Creatinine 0.70, Estimated Creat Clear 40, Estimated GFR 81, Est GFR ( Amer) 98, Glucose 114 H, Calcium 9.2, Total Bilirubin 0.1 L, AST 39 H, ALT 26, Alkaline Phosphatase 126, Troponin I < 0.01, Total Protein 6.3, Albumin 3.9, Globulin 2.4, Albumin/Globulin Ratio 1.6 03/03/20 00:40: Lactate 1.4 03/03/20 00:45: Urine Color Yellow, Urine Appearance Clear, Urine pH 7.0, Ur Specific [place] 1.015, Urine Protein Negative, Urine Glucose (UA) Negative, Urine Ketones Negative, Urine Blood Negative, Urine Nitrate Negative, Urine Bilirubin Negative, Urine Urobilinogen 0.2, Ur Leukocyte Esterase Negative, Urine WBC Occasional, Urine Bacteria Trace 03/03/20 04:12: Troponin I < 0.01 Result diagrams: 03/03/20 00:40 03/03/20 00:40 Orders (Tests/Meds): ORDERS Category Date Time Status Oxcarbazepine Stat Lab 03/03/20 00:40 Received Troponin I Q3H Lab 03/03/20 07:00 Ordered Blood Culture Stat Micro 03/03/20 00:40 Received - Radiology Data #1 Image(s): Chest, Pelvis I
[2020-03-03 01:26] LABS: Troponin I < 0.01 ng/ml (0.00-0.034)
[2020-03-03 04:39] LABS: Troponin I < 0.01 ng/ml (0.00-0.034)
--- NOTE | 2020-03-03 07:17 | PC.NURSE ---
D/C F/C AT THIS TIME. 1600ML UOP.
--- NOTE | 2020-03-03 07:29 | PC.NURSE ---
Pt sitting up eating at this time.
[2020-03-05 19:26] LABS: Oxcarbazepine 30 ug/mL (10-35)
== END 2020-03-03 07:52 | disposition home or self-care (01) ==
PROVIDERS: Emergency Provider Emergency Medicine; PCP Emergency Medicine
DX: S00.83XA Contusion of other part of head, initial encounter (principal); W01.0XXA Fall on same level from slipping, tripping and stumbling without subsequent striking against object, initial encounter; Y92.199 Unspecified place in other specified residential institution as the place of occurrence of the external cause; D64.9 Anemia, unspecified; J44.9 Chronic obstructive pulmonary disease, unspecified; E78.5 Hyperlipidemia, unspecified; Z90.49 Acquired absence of other specified parts of digestive tract; F41.8 Other specified anxiety disorders; Z79.899 Other long term (current) drug therapy
CPT/HCPCS: 70450; 71045; 72125; 72170; 80053; 80183; 81001; 83605; 84484; 85025; 87040; 93005; 99284

== ENCOUNTER 2020-04-21 11:35 | Emergency (ER) | payer MEDICARE, BC, SELFPAY ==
[2020-04-21 11:36] VITALS: BP 163/76; PULSE 67; RESP 18; TEMP 37.1; O2SAT 96; BMI 23.1
[2020-04-21 12:00] VITALS: BP 125/65; PULSE 76; O2SAT 97
--- NOTE | 2020-04-21 12:15 | PC.NURSE ---
Lab at bedside to draw blood and she is refusing per Tigist Ziegler, health and safety technician
[2020-04-21 12:34] VITALS: BP 109/58; PULSE 71; O2SAT 96
--- NOTE | 2020-04-21 13:03 | HMH.EDNVD ---
ED Disposition Clinical Impression: Gastroenteritis Disposition: Home, Self-Care Condition on Discharge: Good Instructions: DI for Diarrhea and Traveler's Diarrhea -- Adult, DI for Diarrhea and Traveler's Diarrhea -- Child, DI for Nausea -- Adult, DI for Nausea -- Child Prescriptions: Ondansetron [Zofran 4mg ODT] 4 mg PO TID PRN 4 Days #15 tab.rapdis PRN Reason: Nausea - Critical Care Critical Care Time: No Attestation: On 04/21/20, the high probability of a clinically significant, sudden or life threatening deterioration of the following system(s) required my full and direct attention, intervention and personal management. The time I documented below is in addition to time spent performing reported procedures but includes the following listed in this critical care notation. Medical Decision Making - Medical Records Medical records reviewed: Yes: I reviewed the patient's medical records. - Edward Inquiry Pt receiving controlled substance: No Vital Signs: 04/21/20 11:36 04/21/20 12:00 04/21/20 12:34 Temperature 98.7 F Temperature Source Oral Pulse Rate [Right Radial] 67 76 71 Respiratory Rate 18 Blood Pressure [Right Arm] 163/76 H 125/65 109/58 L Blood Pressure Mean [Right Arm] 105 85 75 Blood Pressure Source [Right Arm] Automatic Cuff Automatic Cuff Automatic Cuff Blood Pressure Position [Right Arm] Sitting Sitting Sitting 02 Sat by Pulse Oximetry 96 97 96 Oxygen Delivery Method Room Air Room Air Room Air - Lab Data Lab results reviewed: Yes: I reviewed the patient's lab results. Orders (Tests/Meds): ORDERS Category Date Time Status Amylase Stat Lab 04/21/20 11:50 Ordered Complete Blood Count Auto Diff Stat Lab 04/21/20 11:50 Ordered Comprehensive Metabolic Panel Stat Lab 04/21/20 11:50 Ordered Lipase Stat Lab 04/21/20 11:50 Ordered Nausea/Vomiting/Diarrhea HPI - General Chief complaint: Nausea/Vomiting/Diarrhea Stated complaint: NAUSEA Time Seen by Provider: 04/21/20 13:00 Mode of Arrival: EMS Source of Information: Patient Limitations: No Limitations Description of Symptoms (Recalled from ER Triage Doc. by RN): PT BROUGHT TO ED FOR NAUSEA. PT STATES THAT SHE VOMITED ONCE YESTERDAY. PT KNOWN COVID-19 POSITIVE. - History of Present Illness HPI Narrative: 71-year-old female presents with acute nausea and vomiting. Patient is a resident of [place] and is a known positive COVID-19. She states that the nausea started yesterday and she is had a couple episodes of vomiting today. Otherwise no other acute issues. Patient does denies any recent shortness of breath or cough. Patient denies any recent fevers patient denies any malaise patient does states she is feeling better since her diagnosis. - Related Data Home Medications Medication Instructions Recorded Confirmed albuterol sulfate 90 mcg/actuation 2 puff INHALATION DAILYP PRN g 01/12/19 03/03/20 aerosol inhaler aspirin 81 mg chewable tablet 81 mg PO DAILY 01/12/19 03/03/20 atorvastatin 40 mg tablet 40 mg PO HS 01/12/19 03/03/20 donepezil 10 mg tablet 20 mg PO HS tab 01/12/19 03/03/20 ergocalciferol (vitamin D2) 1,250 50,000 unit PO QWEEK 01/12/19 03/03/20 mcg (50,000 unit) capsule memantine 28 mg capsule 28 mg PO HS 01/12/19 03/03/20 sprinkle,extended release 24hr multivitamin,tx-minerals 1 tab PO DAILY 01/12/19 03/03/20 omeprazole 20 mg capsule,delayed 20 mg PO DAILY 01/12/19 03/03/20 release polyethylene glycol 3350 17 17 g PO BID 01/12/19 03/03/20 gram/dose oral powder sertraline 100 mg tablet 100 mg PO DAILY 01/12/19 03/03/20 tiotropium bromide 18 mcg capsule 1 cap INHALATION DAILY 01/12/19 03/03/20 with inhalation device Acetaminophen [Acetaminophen 325mg 650 mg PO Q6HP PRN 06/29/19 03/03/20 tab] Quetiapine Fumarate 50 mg PO HS 06/29/19 03/03/20 ondansetron HCl 4 mg tablet 4 mg PO TID PRN 09/10/19 03/03/20 Previous Rx's Medication Instructions Recorded Ondansetron [Z
[2020-04-21 13:08] VITALS: BP 131/53; PULSE 66; O2SAT 98
--- NOTE | 2020-04-21 13:12 | PC.NURSE ---
prashanth called for pt transport
[2020-04-21 13:39] VITALS: BP 125/77; PULSE 70; RESP 16; TEMP 36.8; O2SAT 99
== END 2020-04-21 13:39 | disposition home or self-care (01) ==
PROVIDERS: Emergency Provider Family Medicine; PCP Emergency Medicine
DX: K52.9 Noninfective gastroenteritis and colitis, unspecified (principal); F41.8 Other specified anxiety disorders; J44.9 Chronic obstructive pulmonary disease, unspecified; E78.5 Hyperlipidemia, unspecified; Z90.49 Acquired absence of other specified parts of digestive tract
CPT/HCPCS: 99282

== ENCOUNTER 2020-07-26 03:47 | Emergency (ER) | payer MEDICAID, MEDICARE, SELFPAY ==
[2020-07-26 03:21] VITALS: BP 148/75; PULSE 61; RESP 17; TEMP 36.6; O2SAT 97; BMI 20.7
[2020-07-26 03:27] VITALS: BMI 21.6
--- NOTE | 2020-07-26 03:28 | XR_ITS ---
PROCEDURE: XR PELVIS 1-2V CLINICAL INDICATION: fall Posttraumatic pain COMPARISON: CR XR PELVIS 1-2V from 03/03/2020 TECHNIQUE: XR Pelvis AP View FINDINGS: No fracture or dislocation is evident. No significant degenerative change. No lytic or blastic change. IMPRESSION: No acute findings. Dictated by: Sravan Stoll MD 07/26/2020 05:17 Sravan Stoll MD in [facility] 07/26/2020 05:17
--- NOTE | 2020-07-26 03:28 | CT_ITS ---
PROCEDURE: CT HEAD/BRAIN WO CON CLINICAL INDICATION: tripped and fell,hit head on floor Head injury with headache/pain, contusion, abrasion or hematoma COMPARISON: CT CT HEAD/BRAIN WO CON from 03/03/2020 TECHNIQUE: Axial images obtained. All CT scans at the facility use one or more dose reduction, viz: automated exposure control, ma/kV adjustment per patient size (including targeted exams where dose is matched to indication, i.e. head), or iterative reconstruction technique. FINDINGS: No midline shift, mass effect, intracranial hemorrhage, hydrocephalus, or extra-axial fluid collection is evident. There is generalized atrophy with hypoattenuation of the periventricular white matter consistent with microangiopathic changes.. There is mild ventriculomegaly likely ex vacuo from the brain volume loss. The calvarium has an unremarkable appearance. No mastoid effusion. No sinus air-fluid level. IMPRESSION: No change with no acute intracranial findings. Atrophy with chronic periventricular ischemic gliotic change. Mild ventriculomegaly which may be a ex vacuo secondary to brain volume loss. Cannot exclude normal pressure hydrocephalus. Not significantly changed. Dictated by: Sravan Stoll MD 07/26/2020 05:47 Sravan Stoll MD in [facility] 07/26/2020 05:47
--- NOTE | 2020-07-26 03:28 | XR_ITS ---
PROCEDURE: XR CHEST PORTABLE CLINICAL HISTORY: fall Trauma protocol, fall COMPARISON: CR CXR CHEST(2 VIEWS-NOT PORTABLE) from 07/10/2015 CR XR CHEST 2V from 06/28/[address] CHEST W CON from 06/29/2019 CR XR CHEST PORTABLE from 03/03/2020 FINDINGS: Mild patient rotation with borderline cardiomegaly. No lobar consolidation or collapse. No evidence of CHF. Mild prominence of the right hilum. IMPRESSION: No acute findings. Dictated by: Sravan Stoll MD 07/26/2020 05:20 Sravan Stoll MD in [facility] 07/26/2020 05:20
--- NOTE | 2020-07-26 03:28 | CT_ITS ---
PROCEDURE: CT CERVICAL SPINE WO CON CLINICAL INDICATION: tripped and fell,hit head on floor Neck injury with pain, contusion/abrasion or hematoma, cervical sprain/strain the COMPARISON: CT CT CERVICAL SPINE WO CON from 03/03/2020 TECHNIQUE: Axial images obtained with sagittal and coronal reformats. All CT scans at the facility use one or more dose reduction, viz: automated exposure control, ma/kV adjustment per patient size (including targeted exams where dose is matched to indication, i.e. head), or iterative reconstruction technique. Axial spiral CT scanning performed of the cervical spine beginning at the base of the skull and continuing to the upper T-spine. 3-D multiplanar reconstruction with 3-D manipulation of volumetric data set in image rendering was completed by the radiologist and/or technologist with the supervision of the radiologist on independent workstation. FINDINGS: Normal alignment. No fracture or dislocation. There is multilevel cervical spondylosis with degenerative disc disease and facet and uncovertebral hypertrophy. Degenerative disc disease C2-C3, degenerative disc disease C3-C4 with left foraminal narrowing, degenerative disc disease C4-C5 with bilateral foraminal narrowing, degenerative disc disease C5-C6 with left paracentral disc osteophyte complex canal stenosis and bilateral foraminal narrowing, degenerative disc disease C6-C7 with canal stenosis and bilateral foraminal narrowing. Lung apices are clear IMPRESSION: No acute fracture. Multilevel cervical spondylosis Dictated by: Sravan Stoll MD 07/26/2020 05:52 Sravan Stoll MD in [facility] 07/26/2020 05:52
--- NOTE | 2020-07-26 04:24 | PC.NURSE ---
Patient back from radiology at this time
[2020-07-26 04:26] VITALS: BP 173/76; PULSE 54; RESP 17; O2SAT 97
[2020-07-26 04:30] VITALS: BP 173/76; PULSE 64; RESP 17; O2SAT 97
--- NOTE | 2020-07-26 04:50 | HMH.EDFALL ---
ED Disposition Clinical Impression: Concussion without loss of consciousness Qualifiers: Encounter type: initial encounter Qualified Code(s): S06.0X0A - Concussion without loss of consciousness, initial encounter Fall Qualifiers: Encounter type: initial encounter Qualified Code(s): W19.XXXA - Unspecified fall, initial encounter Disposition: Home, Self-Care Condition on Discharge: Good Instructions: How to Prevent Falls Additional Instructions: resume meds Referrals: Bismark Sanchez MD [Primary Care Provider] - - Critical Care Critical Care Time: No Attestation: On 07/26/20, the high probability of a clinically significant, sudden or life threatening deterioration of the following system(s) required my full and direct attention, intervention and personal management. The time I documented below is in addition to time spent performing reported procedures but includes the following listed in this critical care notation. Medical Decision Making - Medical Records Medical records reviewed: Yes: I reviewed the patient's medical records. - Edward Inquiry Pt receiving controlled substance: No Vital Signs: 07/26/20 03:21 07/26/20 04:26 07/26/20 04:30 Temperature 97.8 F Temperature Source Oral Pulse Rate [Right Brachial] 61 54 L 64 Respiratory Rate 17 17 17 Blood Pressure [Right Arm] 148/75 H 173/76 H 173/76 H Blood Pressure Mean [Right Arm] 99 108 108 Blood Pressure Source [Right Arm] Automatic Cuff Automatic Cuff Automatic Cuff Blood Pressure Position [Right Arm] Sitting Sitting Supine 02 Sat by Pulse Oximetry 97 97 97 Oxygen Delivery Method Room Air Room Air Room Air - Lab Data Lab results reviewed: Yes: I reviewed the patient's lab results. Orders (Tests/Meds): ORDERS Category Date Time Status CT cervical spine wo con Stat Cat Scan 07/26/20 03:[address] head/brain wo con Stat Cat Scan 07/26/20 03:28 Ordered Chest XR -- portable [XR chest portable] Stat Exams 07/26/20 03:28 Ordered XR pelvis 1-2V Stat Exams 07/26/20 03:28 Ordered - Radiology Data #1 Image(s): Chest, Pelvis Image Reviewed: Yes I reviewed the patient's radiology image Preliminary Findings: No Fracture Seen - CT Data CT Scan: Head, C-Spine Time Received: 04:[address] Reviewed: Yes: I have viewed the radiologist's interpretation Preliminary Findings: No Fracture Seen Fall HPI - General Chief Complaint: Fall Stated Complaint: Fall Time Seen by Provider: 07/26/20 03:50 Mode of Arrival: EMS Source of Information: Patient, EMS, Medical Record Limitations: No Limitations Description of Symptoms (Recalled from ER Triage Doc. by RN): Patient brought in by [facility] with reports she was getting up out of bed to go to the restroom when she tripped over her own feet. Patient complains of head and neck pain. No loss of conciousness. - History of Present Illness HPI Narrative: [facility] -with [facility] - trip injury MD complaint: fall Onset (ago): hour(s) Fall from: standing Fall witnessed: no Place fall occurred: other (prison ) Loss of consciousness: none Prolonged down time: no Symptoms prior to fall: none Context: tripped/slipped Location of injury: head, neck Severity: moderate Associated symptoms (after fall): denies - Related Data Home Medications Medication Instructions Recorded Confirmed albuterol sulfate 90 mcg/actuation 2 puff INHALATION DAILYP PRN g 01/12/19 03/03/20 aerosol inhaler aspirin 81 mg chewable tablet 81 mg PO DAILY 01/12/19 03/03/20 atorvastatin 40 mg tablet 40 mg PO HS 01/12/19 03/03/20 donepezil 10 mg tablet 20 mg PO HS tab 01/12/19 03/03/20 ergocalciferol (vitamin D2) 1,250 50,000 unit PO QWEEK 01/12/19 03/03/20 mcg (50,000 unit) capsule memantine 28 mg capsule 28 mg PO HS 01/12/19 03/03/20 sprinkle,extended release 24hr multivitamin,tx-minerals 1 tab PO DAILY 01/12/19 03/03/20 omeprazole 20 mg capsule,delayed 20 mg PO DAILY 01/12/19 03/03/20 re
[2020-07-26 04:58] VITALS: BP 170/76; PULSE 52; RESP 17; TEMP 36.6; O2SAT 99
[2020-07-26 05:00] VITALS: BP 170/76; PULSE 52; RESP 18; O2SAT 97
== END 2020-07-26 05:10 | disposition home or self-care (01) ==
PROVIDERS: Emergency Provider Emergency Medicine; PCP Emergency Medicine
DX: S06.0X0A Concussion without loss of consciousness, initial encounter (principal); W01.0XXA Fall on same level from slipping, tripping and stumbling without subsequent striking against object, initial encounter; Y92.019 Unspecified place in single-family (private) house as the place of occurrence of the external cause; J44.9 Chronic obstructive pulmonary disease, unspecified; F41.8 Other specified anxiety disorders; E78.5 Hyperlipidemia, unspecified
CPT/HCPCS: 70450; 71045; 72125; 72170; 99283

== ENCOUNTER 2020-08-01 08:52 | Emergency (ER) | payer MEDICARE, MEDICAID, SELFPAY ==
[2020-08-01 08:45] VITALS: BP 165/76; PULSE 52; RESP 18; O2SAT 95; BMI 23.1
--- NOTE | 2020-08-01 08:51 | CT_ITS ---
PROCEDURE: CT HEAD/BRAIN WO CON CLINICAL INDICATION: fall Head injury with headache/pain, contusion, abrasion or hematoma COMPARISON: CT CT HEAD/BRAIN WO CON from 07/26/2020 TECHNIQUE: Axial images obtained. All CT scans at the facility use one or more dose reduction, viz: automated exposure control, ma/kV adjustment per patient size (including targeted exams where dose is matched to indication, i.e. head), or iterative reconstruction technique. FINDINGS: No midline shift or mass effect. No acute intracranial hemorrhage. There is generalized atrophy with periventricular ischemic gliotic changes. There is also mild ventriculomegaly as previously described which could be due to ex vacuo dilatation versus normal pressure hydrocephalus. No acute calvarial fracture. IMPRESSION: No change with no acute finding. Atrophy with ventriculomegaly unchanged Dictated by: Sravan Stoll MD 08/01/2020 09:40 Sravan Stoll MD in [place] 08/01/2020 09:40
--- NOTE | 2020-08-01 08:54 | HMH.EDFALL ---
ED Disposition Clinical Impression: Dehydration Fall Qualifiers: Encounter type: initial encounter Qualified Code(s): W19.XXXA - Unspecified fall, initial encounter Lip abrasion Qualifiers: Encounter type: initial encounter Qualified Code(s): S00.511A - Abrasion of lip, initial encounter Disposition: Home, Self-Care Condition on Discharge: Good Instructions: How to Prevent Falls, DI for Abrasion, DI for Dehydration -- Adult Referrals: Bismark Sanchez MD [Primary Care Provider] - 3 days - Critical Care Critical Care Time: No Attestation: On , the high probability of a clinically significant, sudden or life threatening deterioration of the following system(s) required my full and direct attention, intervention and personal management. The time I documented below is in addition to time spent performing reported procedures but includes the following listed in this critical care notation. Medical Decision Making - Medical Records Medical records reviewed: Yes: I reviewed the patient's medical records. - Edward Inquiry Pt receiving controlled substance: No Vital Signs: 08/01/20 08:45 08/01/20 10:28 Pulse Rate [Radial] 52 L 57 L Respiratory Rate 18 Blood Pressure [Right Arm] 165/76 H 177/89 H Blood Pressure Mean [Right Arm] 105 118 Blood Pressure Source [Right Arm] Automatic Cuff Automatic Cuff Blood Pressure Position [Right Arm] Sitting Supine 02 Sat by Pulse Oximetry 95 98 Oxygen Delivery Method Room Air Room Air - Lab Data Lab results reviewed: Yes: I reviewed the patient's lab results. Lab Results 08/01/20 08:56: POC Glucose 104 08/01/20 10:20: Urine Color Yellow, Urine Appearance Clear, Urine pH 7.0, Ur Specific [place] 1.015, Urine Protein Negative, Urine Glucose (UA) Negative, Urine Ketones Negative, Urine Blood Negative, Urine Nitrate Negative, Urine Bilirubin Negative, Urine Urobilinogen 0.2, Ur Leukocyte Esterase Negative, Urine RBC None, Urine WBC 3-5, Ur Squamous Epith Cells Occasional, Calcium Oxalate Crystal Trace, Urine Bacteria 1+ 08/01/20 10:30: WBC 5.7, RBC 4.34, Hgb 13.0, Hct 37.8, MCV 87.1, MCH 30.1, MCHC 34.5, RDW 13.2, Plt Count 255, MPV 8.0, Neut % (Auto) 67.0, Lymph % (Auto) 22.2, [place] % (Auto) 6.2, Eos % (Auto) 3.8, Baso % (Auto) 0.8, Neut # (Auto) 3.9, Lymph # (Auto) 1.3, [place] # (Auto) 0.4, Eos # (Auto) 0.2, Baso # (Auto) 0.1 08/01/20 10:30: Sodium 136, Potassium 3.7, Chloride 96 L, Carbon Dioxide 30, Anion Gap 13.7, BUN 6 L, Creatinine 0.80, Estimated Creat Clear 45, Estimated GFR 69, Est GFR ( Amer) 84, Glucose 108 H, Calcium 9.5 Result diagrams: 08/01/20 10:30 08/01/20 10:30 Orders (Tests/Meds): ED MEDICATIONS Generic Name Dose Route Start Last Admin Trade Name Freq PRN Reason Stop Dose Admin Sodium Chloride 1,000 mls @ 999 mls/hr 08/01/20 10:30 08/01/20 10:37 Sod Chlor 0.9% 1000ml Bag IV 08/01/20 11:30 999 mls/hr .[id number] EVANGELINA Administration - CT Data CT Scan: Head Time Received: 10:[address] Reviewed: Yes: I have reviewed the patient's CT results Findings Narrative: No acute intracranial process Medical Decision Narrative: Patient here with fall this morning, abrasion on left that needs no repair. CT head with no acute intracranial process. According to her paperwork from [place], she has frequent falls and needs assistance when ambulating so this is not new for her. Urinalysis negative for infection and there is no significant metabolic derangement, anemia or leukocytosis that would suggest acute infection. She was given a liter of fluids here for slightly elevated anion gap. Of note, they did recently increase her dose of trileptal which may be causing her to feel slightly more lightheaded. Discharged back to [place] with strict instructions to remain assistance with walking. Fall HPI - General Chief Complaint: Fall Stated Complaint: Fall Time Seen by Provider: 08/01/20 08:54 Mode of Arrival: EMS Limitations: No Limitations De
--- NOTE | 2020-08-01 09:09 | PC.NURSE ---
pt to rad
[2020-08-01 09:14] LABS: POC Glucose,Bedside 104 (70-110)
[2020-08-01 10:28] VITALS: BP 177/89; PULSE 57; O2SAT 98
[2020-08-01 10:30] LABS: Microscopic, Urine URINE MICROSCOPIC (MICROSCOPIC)
[2020-08-01 10:34] LABS: Appearance,Urine CLEAR (Clear); Bilirubin,Urine Negative (Negative); Blood, Urine Negative (Negative); Color,Urine YELLOW (Yellow); Glucose,Urine (UA) Negative (Negative); Ketones,Urine Negative (Negative); Leukocyte Esterase,Urine Negative (Negative); Nitrate,Urine Negative (Negative); Protein,Urine Negative (Negative); Specific Gravity, Urine 1.015 (1.005-1.030); Urobilinogen,Urine 0.2 EU/dl (0.2)
[2020-08-01 10:45] LABS: White Blood Count 5.7 K/mm3 (4.8-10.8)
[2020-08-01 10:46] LABS: Basophils % 0.8 % (0.1-2.0); Eosinophils % 3.8 % (0.1-12.0); Hematocrit 37.8 % (37.0-47.0); Lymphocytes # 1.3 K/mm3 (0.7-4.5); Lymphocytes % 22.2 % (10-50); Mean Corpuscular HGB Conc 34.5 g/dL (31.8-35.4); Mean Corpuscular Hemoglobin 30.1 pg (27.0-31.2); Mean Corpuscular Volume 87.1 fl (81-99); Monocytes # 0.4 K/mm3 (0.1-1.0); Monocytes % 6.2 % (1.7-9.3); Neutrophils # 3.9 K/mm3 (1.8-7.8); Platelet Count 255 K/mm3 (142-424); Red Blood Count 4.34 M/mm3 (4.20-5.40); Red Cell Distribution Width 13.2 % (11.5-17.5)
[2020-08-01 10:47] LABS: Basophils # 0.1 K/mm3 (0-0.2); Eosinophils # 0.2 K/mm3 (0.0-0.4)
[2020-08-01 10:49] LABS: Chloride 96 mmol/L (98-107); Sodium 136 mmol/L (136-145)
[2020-08-01 10:50] LABS: Potassium 3.7 mmoL/L (3.5-5.1)
[2020-08-01 10:53] LABS: Anion Gap 13.7 mEq/L (5-15); Blood Urea Nitrogen 6 mg/dl (7-17); Calcium 9.5 mg/dl (8.4-10.2); Carbon Dioxide 30 mmol/L (22.0-30.0); Creatinine Clearance Estimated 45 mL/min (50-200); Estimated Glomerular Filt Rate 69 ml/min (>60); GFR (African American) 84 ML/MIN (>60); Glucose 108 mg/dl (74-100)
[2020-08-01 10:57] LABS: Bacteria,Urine 1+ /lpf; Calcium Oxalate Crystals,Urine Trace /lpf; Squamous Epithelial Cell,Urine Occasional #/hpf (0-5)
--- NOTE | 2020-08-01 11:23 | PC.NURSE ---
Sonny Alex notified of patient being ready for discharge.
[2020-08-01 11:30] VITALS: BP 170/75; PULSE 58; RESP 17; TEMP 36.4; O2SAT 95
== END 2020-08-01 11:32 | disposition home or self-care (01) ==
PROVIDERS: Emergency Provider Emergency Medicine; PCP Emergency Medicine
DX: E86.0 Dehydration (principal); S00.511A Abrasion of lip, initial encounter; W01.10XA Fall on same level from slipping, tripping and stumbling with subsequent striking against unspecified object, initial encounter; Y92.199 Unspecified place in other specified residential institution as the place of occurrence of the external cause; F03.90 Unspecified dementia, unspecified severity, without behavioral disturbance, psychotic disturbance, mood disturbance, and anxiety; J44.9 Chronic obstructive pulmonary disease, unspecified; E78.5 Hyperlipidemia, unspecified; Z79.899 Other long term (current) drug therapy
CPT/HCPCS: 70450; 80048; 81001; 82962; 85025; 96365; 99283

== ENCOUNTER 2020-11-02 09:02 | Observation (INO) | payer MEDICAID, SELFPAY ==
[2020-11-02] VITALS (12 sets, daily range): BP systolic 137–189; BP diastolic 68–82; PULSE 63–85; RESP 18–22; TEMP 36.7–36.8; O2SAT 91–98; BMI 17.2
--- NOTE | 2020-11-02 09:22 | CT_ITS ---
PROCEDURE: CT ABDOMEN PELVIS W CON CLINICAL INDICATION: vomitting, abd pain COMPARISON: CT CT ABDOMEN PELVIS W CON from 06/29/2019 TECHNIQUE: IV Contrast: 75ML OPTIRAY 350 Oral Contrast none given Axial images obtained with sagittal and coronal reformats. All CT scans at the facility use one or more dose reduction, viz: automated exposure control, ma/kV adjustment per patient size (including targeted exams where dose is matched to indication, i.e. head), or iterative reconstruction technique. FINDINGS: Lower thorax: There is minimal postinflammatory scarring posterior basilar segment right lower lobe. No pleural fluid. There is borderline cardiomegaly. ABDOMEN: Liver: No masses or biliary dilatation. Gallbladder: Post cholecystectomy Pancreas: No masses or peripancreatic fluid collections. Spleen: unremarkable Adrenals: unremarkable Kidneys/ureters: Prominent motion artifact degrades images of the abdomen. Kidneys appear grossly normal in size and show symmetrical function. There is no obvious obstructive uropathy of either kidney. ABDOMEN & PELVIS: Stomach bowel: There is a moderate sized hiatal hernia. The stomach appears grossly normal. Motion artifact markedly degrades evaluation of the small and large bowel. The small bowel appears grossly normal. There is prominent ptosis of the transverse colon hanging down to the upper pelvis. There is mild diverticulosis of the sigmoid colon but there is no diverticulitis. There is a moderate amount of formed stool in the sigmoid colon and rectum. Peritoneum: No abnormal fluid collections. No obvious inflammatory changes. No free air. Lymph nodes: No enlarged lymph nodes apparent. Vasculature: There is diffuse scattered arteriosclerotic calcification of the abdominal aorta and proximal common iliac arteries but there is no aneurysm. Bones: No acute fracture PELVIS: Reproductive: Post hysterectomy. Bladder: Nondistended. No obvious stones or masses. There is no free fluid in the pelvis. Appendix: Definitely identified but there are no pericecal inflammatory changes. IMPRESSION: Suboptimal evaluation of the small and large bowel due to marked motion artifact but there is no evidence of obstruction, there is mild diverticulosis of the sigmoid colon without diverticulitis Dictated by: Dr. Danny Kessler MD 11/02/2020 11:06 Dr. Danny Kessler MD in [facility] 11/02/2020 11:06
--- NOTE | 2020-11-02 09:30 | HMH.EDGENADL ---
ED Disposition Clinical Impression: GI bleed Qualifiers: GI bleed type/associated pathology: unspecified gastrointestinal hemorrhage type Qualified Code(s): K92.2 - Gastrointestinal hemorrhage, unspecified Disposition: Admitted as Observation Condition on Discharge: Fair Time of Disposition: 13:08 - Critical Care Critical Care Time: No Attestation: On 11/02/20, the high probability of a clinically significant, sudden or life threatening deterioration of the following system(s) required my full and direct attention, intervention and personal management. The time I documented below is in addition to time spent performing reported procedures but includes the following listed in this critical care notation. Medical Decision Making - Medical Records Medical records reviewed: Yes: I reviewed the patient's medical records. MR Comment: 79-year-old [place] [facility] [place] [facility] with a complaint that she has been having vomiting since yesterday reports that it was coffee-ground emesis that they saw today; appears to have some dementia. Since work-up shows hemoglobin of 14.8 and hematocrit of 43.7 urinalysis is normal electrolytes are normal occult stool shows positivity CT showed no acute findings I did speak to Dr. Sanchez's nurse practitioner Aime Silvino and that he is advised that patient be kept for observation able with stable vital signs at this time - Edward Inquiry Pt receiving controlled substance: No Edward was queried for this patient: No Vital Signs: 11/02/20 09:03 11/02/20 09:52 11/02/20 10:19 Temperature 98.2 F Temperature Source Oral Pulse Rate [Right Radial] 85 74 68 Respiratory Rate 18 Blood Pressure [Right Arm] 155/77 H 155/76 H 137/68 Blood Pressure Mean [Right Arm] 103 102 91 Blood Pressure Source [Right Arm] Automatic Cuff Automatic Cuff Automatic Cuff Blood Pressure Position [Right Arm] Sitting Sitting Sitting 02 Sat by Pulse Oximetry 93 L 93 L 93 L Oxygen Delivery Method Room Air Room Air Room Air 11/02/20 11:00 11/02/20 11:32 11/02/20 12:30 Temperature Temperature Source Pulse Rate [Right Radial] 80 67 64 Respiratory Rate 20 Blood Pressure [Right Arm] 162/77 H 162/81 H 167/68 H Blood Pressure Mean [Right Arm] 105 108 101 Blood Pressure Source [Right Arm] Automatic Cuff Automatic Cuff Automatic Cuff Blood Pressure Position [Right Arm] Sitting Sitting Sitting 02 Sat by Pulse Oximetry 97 98 98 Oxygen Delivery Method Room Air Room Air Room Air - Lab Data Lab results reviewed: Yes: I reviewed the patient's lab results. Lab Results 11/02/20 09:20: Urine Color Yellow, Urine Appearance Clear, Urine pH 7.5, Ur Specific [place] 1.010, Urine Protein Negative, Urine Glucose (UA) Negative, Urine Ketones Negative, Urine Blood Negative, Urine Nitrate Negative, Urine Bilirubin Negative, Urine Urobilinogen 0.2, Ur Leukocyte Esterase Negative, Urine RBC Occasional, Urine WBC 3-5, Ur Squamous Epith Cells Occasional 11/02/20 09:20: WBC 10.8, RBC 4.93, Hgb 14.8, Hct 43.7, MCV 88.7, MCH 30.0, MCHC 33.8, RDW 14.1, Plt Count 321, MPV 8.2, Neut % (Auto) 80.3 H, Lymph % (Auto) 13.4, [place] % (Auto) 3.4, Eos % (Auto) 2.4, Baso % (Auto) 0.5, Neut # (Auto) 8.7 H, Lymph # (Auto) 1.5, [place] # (Auto) 0.4, Eos # (Auto) 0.3, Baso # (Auto) 0.1 11/02/20 09:20: Sodium 135 L, Potassium 4.1, Chloride 96 L, Carbon Dioxide 29, Anion Gap 14.1, BUN 11, Creatinine 0.70, Estimated Creat Clear 33, Estimated GFR 81, Est GFR ( Amer) 98, Glucose 132 H, Calcium 9.8, Total Bilirubin 0.5, AST 40 H, ALT 28, Alkaline Phosphatase 176 H, Total Protein 8.1 D, Albumin 4.7, Globulin 3.4 H, Albumin/Globulin Ratio 1.4 11/02/20 09:20: SARS-CoV-2 IgG Ab (Rapid) Positive A, SARS-CoV-2 IgM Ab (Rapid) Negative 11/02/20 10:30: Stool Occult Blood Positive A Result diagrams: 11/02/20 09:20 11/02/20 09:20 Orders (Tests/Meds): ED MEDICATIONS Generic Name Dose Route Start Last Admin Trade Name Freq PRN Reason Stop Dose Admin Sodiu
[2020-11-02 10:04] LABS: Microscopic, Urine URINE MICROSCOPIC (MICROSCOPIC)
[2020-11-02 10:08] LABS: Basophils # 0.1 K/mm3 (0-0.2); Basophils % 0.5 % (0.1-2.0); Chloride 96 mmol/L (98-107); Eosinophils # 0.3 K/mm3 (0.0-0.4); Eosinophils % 2.4 % (0.1-12.0); Hematocrit 43.7 % (37.0-47.0); Hemoglobin 14.8 g/dL (12.2-16.2); Lymphocytes # 1.5 K/mm3 (0.7-4.5); Lymphocytes % 13.4 % (10-50); Mean Corpuscular HGB Conc 33.8 g/dL (31.8-35.4); Mean Corpuscular Volume 88.7 fl (81-99); Mean Platelet Volume 8.2 fl (7.4-10.4); Monocytes # 0.4 K/mm3 (0.1-1.0); Monocytes % 3.4 % (1.7-9.3); Neutrophils # 8.7 K/mm3 (1.8-7.8); Neutrophils % 80.3 % (37.0-80.0); Platelet Count 321 K/mm3 (142-424); Red Blood Count 4.93 M/mm3 (4.20-5.40); Red Cell Distribution Width 14.1 % (11.5-17.5); White Blood Count 10.8 K/mm3 (4.8-10.8)
[2020-11-02 10:09] LABS: Appearance,Urine CLEAR (Clear); Bilirubin,Urine Negative (Negative); Blood, Urine Negative (Negative); Color,Urine YELLOW (Yellow); Glucose,Urine (UA) Negative (Negative); Ketones,Urine Negative (Negative); Leukocyte Esterase,Urine Negative (Negative); Nitrate,Urine Negative (Negative); PH,Urine 7.5 (5.0-8.5); Potassium 4.1 mmoL/L (3.5-5.1); Protein,Urine Negative (Negative); Sodium 135 mmol/L (136-145); Urobilinogen,Urine 0.2 EU/dl (0.2)
[2020-11-02 10:11] LABS: Alanine Aminotransferase 28 U/L (12-78); Albumin Level 4.7 g/dl (3.5-5.0); Albumin/Globulin Ratio 1.4 (1.1-1.8); Alkaline Phosphatase 176 U/L (38-126); Anion Gap 14.1 mEq/L (5-15); Aspartate Amino Transferase 40 U/L (14-36); Bilirubin,Total 0.5 mg/dl (0.2-1.3); Blood Urea Nitrogen 11 mg/dl (7-17); Carbon Dioxide 29 mmol/L (22.0-30.0); Creatinine Clearance Estimated 33 mL/min (50-200); Estimated Glomerular Filt Rate 81 ml/min (>60); GFR (African American) 98 ML/MIN (>60); Globulin 3.4 g/dL (1.3-3.2); Total Protein,Serum 8.1 g/dl (6.3-8.2)
[2020-11-02 10:12] LABS: Calcium 9.8 mg/dl (8.4-10.2); Glucose 132 mg/dl (74-100)
[2020-11-02 10:15] LABS: RBC,Urine Occasional #/hpf (0-3); Squamous Epithelial Cell,Urine Occasional #/hpf (0-5)
--- NOTE | 2020-11-02 10:43 | PC.NURSE ---
pt to Ct
[2020-11-02 10:47] LABS: Occult Blood,Stool Positive (Negative)
--- NOTE | 2020-11-02 10:52 | PC.NURSE ---
Pt returned from rad.
--- NOTE | 2020-11-02 12:12 | PC.NURSE ---
notified ER MD pt CT result is in the system, states she will review pts results, no new orders obtained at this time, will continue to monitor
--- NOTE | 2020-11-02 12:30 | PC.NURSE ---
speaking with family pcp for possible admission
--- NOTE | 2020-11-02 12:36 | PC.NURSE ---
CM notified of admission. Will contact house for bed assignment
--- NOTE | 2020-11-02 12:40 | PC.NURSE ---
pt cleaned up at this time, pt had removed her pants and stooled herself in the bed pt is in a clean gown and depends placed on pt. Will continue to monitor
--- NOTE | 2020-11-02 12:55 | PC.NURSE ---
Pt up to restroom
[2020-11-02 12:57] LABS: Coronavirus 19 IgG Antibody Positive (Negative); Coronavirus 19 IgM Antibody Negative (Negative)
--- NOTE | 2020-11-02 13:19 | PC.NURSE ---
receiving nurse on second floor notified pt is ready for admission, states she will come down for report
--- NOTE | 2020-11-02 13:38 | PC.NURSE ---
report given perryrn
--- NOTE | 2020-11-02 14:07 | P.CONPHA_ITS ---
[facility] Pharmacy VTE Monitoring - Patient Demographics Admission date: 11/02/20 Report Date: 11/02/20 Time: 14:07 Allergies/Adverse Reactions: Patient Allergies No Known Allergies Allergy (Verified 03/03/20 00:50) Height: 1.63 m Weight: 45.359 kg Patient Problems: Current Active Problems GI bleed (Acute) - VTE Risk Labs: VTE Related Lab Results Hgb 14.8 g/dL (12.2-16.2) 11/02/20 09:20 Hct 43.7 % (37.0-47.0) 11/02/20 09:20 Plt Count 321 K/mm3 (142-424) 11/02/20 09:20 BUN 11 mg/dl (7-17) 11/02/20 09:20 Creatinine 0.70 mg/dl (0.52-1.04) 11/02/20 09:20 Estimated Creat Clear 33 mL/min (50-200) 11/02/20 09:20 - Prophylaxis VTE Prophylaxis Ordered?: Yes Types of VTE Prophylaxis: TEDS Knee High Location of Applied Device: Bilateral Lower Extremeties
--- NOTE | 2020-11-02 16:30 | PC.NURSE ---
Per Silvino, pt needs to be NPO at midnight and will be scoped in the AM at 7am. He has spoke with Dr. Reyes about pt.
--- NOTE | 2020-11-02 20:01 | PC.NURSE ---
Pt sitting in bed. No needs voiced, denies pain. Remains on room air. Ambulates w/ standby assistance to bathroom w/ unsteady gait. No BM's since arriving to floor. Uses call light appropriately. Report given to Vinh BradyRN
--- NOTE | 2020-11-02 20:50 | HMH.GSCON ---
*Admission Date: 11/02/20 *Reason for consult:: Possible upper gastrointestinal hemorrhage *History of present illness: This is a 79-year-old female seen in consultation from Silvino Cruz APRN and Dr. Hare for evaluation of possible upper gastrointestinal hemorrhage. She was transferred from her alf earlier today after experiencing what has been described as coffee-ground emesis . From emergency department evaluation: General Adult HPI - General Chief complaint: Nausea/Vomiting/Diarrhea Stated complaint: Vomiting Time Seen by Provider: 11/02/20 09:15 Mode of Arrival: EMS Source of Information: Patient, Medical Record Limitations: No Limitations Description of Symptoms (Recalled from ER Triage Doc. by RN): per report from EMS pt has been vomitting since yesterday, coffee ground emesis today. Pt reports abd pain. Pt also reports frequent urination. - History of Present Illness HPI narrative: 79-year-old female from the alf with a complaint that she has been having vomiting since yesterday reports that it was coffee-ground emesis that they saw today; appears to have some dementia MD complaint: nausea vomiting Onset (ago): hour(s) Location: abdomen Radiation: non-radiation Severity: moderate Severity scale (1-10): 3 Consistency: constant Exacerbating factors: none Treatments prior to arrival: none Review of Systems - Review of Systems Review of systems:: unable to obtain [facility] History Medical History: Reports:: Anxiety, Chronic Obstructive Pulmonary Disease (COPD), Depression, Hyperlipidemia, Hypertension Denies:: Cancer, Diabetes Mellitus Type 1, Diabetes Mellitus Type 2, MRSA *Have you ever received a pneumonia vaccine?: Yes *Have you received a flu vaccine this season?: Yes Other Medical History: Reports: Anemia Other Surgeries: Yes: Appendectomy, Cardiac Catheterization, Cholecystectomy, Other Amputation: No Fractures: No - *Social History Last grade of school completed: High school graduate Smoking Status: Never smoker Alcohol Intake: never Substance Use Type: denies use *Occupational Status:: retired Housing: alf Household Members: none *Travel in the last 8 weeks: None - Psychiatric History Pschychiatric History:: Reports:: Anxiety, Depression Family Hx:: No significant family history Meds Home Medications Medication Instructions Recorded Confirmed Type albuterol sulfate 90 mcg/actuation 2 puff INHALATION DAILYP PRN g 01/12/19 11/02/20 History aerosol inhaler aspirin 81 mg chewable tablet 81 mg PO DAILY 01/12/19 11/02/20 History atorvastatin 40 mg tablet 40 mg PO HS 01/12/19 11/02/20 History donepezil 10 mg tablet 20 mg PO HS tab 01/12/19 11/02/20 History ergocalciferol (vitamin D2) 1,250 50,000 unit PO QWEEK 01/12/19 11/02/20 History mcg (50,000 unit) capsule memantine 28 mg capsule 28 mg PO HS 01/12/19 11/02/20 History sprinkle,extended release 24hr multivitamin,tx-minerals 1 tab PO DAILY 01/12/19 11/02/20 History omeprazole 20 mg capsule,delayed 20 mg PO DAILY 01/12/19 11/02/20 History release polyethylene glycol 3350 17 17 g PO BID 01/12/19 11/02/20 History gram/dose oral powder sertraline 100 mg tablet 100 mg PO DAILY 01/12/19 11/02/20 History tiotropium bromide 18 mcg capsule 1 cap INHALATION DAILY 01/12/19 11/02/20 History with inhalation device Acetaminophen [Acetaminophen 325mg 650 mg PO Q6HP PRN 06/29/19 11/02/20 History tab] Quetiapine Fumarate 50 mg PO HS 06/29/19 11/02/20 History Ondansetron [Zofran 4mg ODT] 4 mg PO TID PRN 4 Days #15 04/21/20 11/02/20 Rx tab.rapdis LORazepam [Lorazepam 0.5mg Tablet] 0.5 mg PO Q8 PRN 11/02/20 11/02/20 History OXcarbazepine [Trileptal] 600 mg PO BID 11/02/20 11/02/20 History Allergies Allergy/AdvReac Type Severity Reaction Status Date / Time No Known Allergies Allergy Verified 03/03/20 00:50 Exam Vital signs and Labs for Last 24 Hours: Temp Pulse Resp BP
--- NOTE | 2020-11-03 00:10 | PC.NURSE ---
pt was pleasant at bedside report, however when lab came to floor to draw labs, pt became anxious, combative and attempted to get up to get her things to leave, pt refused all medications at 2100 and even after being educated about why labs were needed refused, pt states that she is just a guinea pig here and she would not let us stick her anymore, held 2100 medications and made lab aware of pt refusal to have labs drawn
[2020-11-03 04:00] VITALS: BP 142/71; PULSE 86; RESP 17; TEMP 36.6; O2SAT 96
[2020-11-03 05:02] VITALS: BMI 19.5
--- NOTE | 2020-11-03 05:05 | PC.NURSE ---
pt was very resistant to care at beginning of shift, refused lab draws, then refused to take any of her medications at 2100, tried to gather her belongings to go back home, several attempts made to get pt to take medications, refused every time, pt states nothing is wrong with her and she just needs to go back home, is AxOx3, no bowel movements this shift, has ambulated with one assist to the BR, has had no complaints of N/V/D, has remained on room air with O2 sats 91-96%
--- NOTE | 2020-11-03 06:23 | PC.NURSE ---
pt did allow lab to draw her blood this morning
[2020-11-03 06:45] LABS: Basophils # 0.1 K/mm3 (0-0.2); Eosinophils # 0.2 K/mm3 (0.0-0.4); Lymphocytes # 1.7 K/mm3 (0.7-4.5); Neutrophils # 3.9 K/mm3 (1.8-7.8); Red Cell Distribution Width 14.1 % (11.5-17.5)
[2020-11-03 06:47] LABS: Chloride 106 mmol/L (98-107); Potassium 3.8 mmoL/L (3.5-5.1); Sodium 137 mmol/L (136-145)
[2020-11-03 06:50] LABS: Blood Urea Nitrogen 7 mg/dl (7-17); Creatinine Clearance Estimated 38 mL/min (50-200); Estimated Glomerular Filt Rate 81 ml/min (>60); GFR (African American) 98 ML/MIN (>60)
[2020-11-03 06:51] LABS: Anion Gap 9.8 mEq/L (5-15); Carbon Dioxide 25 mmol/L (22.0-30.0); Glucose 101 mg/dl (74-100)
--- NOTE | 2020-11-03 06:51 | HMH.GSPN ---
Subjective Patient reports: no new complaints Narrative: Although not as adamant, she does continue to refuse endoscopic intervention. Progress Note: A&P (1) Coffee ground emesis Status: Acute (2) Guaiac positive stools Status: Acute (3) GI bleed Status: Acute Assessment and plan: No sign of definitive significant blood loss. She continues to refuse endoscopic evaluation. Follow-up morning hemoglobin/hematocrit Continue PPI at a fairly high dose Exam Vital signs and Labs for Last 24 Hours: Temp Pulse Resp BP Pulse Ox 97.9 F 86 17 142/71 H 96 11/03/20 04:00 11/03/20 04:00 11/03/20 04:00 11/03/20 04:00 11/03/20 04:00 Laboratory Results - last 24 hr 11/02/20 09:20: Urine Color Yellow, Urine Appearance Clear, Urine pH 7.5, Ur Specific [place] 1.010, Urine Protein Negative, Urine Glucose (UA) Negative, Urine Ketones Negative, Urine Blood Negative, Urine Nitrate Negative, Urine Bilirubin Negative, Urine Urobilinogen 0.2, Ur Leukocyte Esterase Negative, Urine RBC Occasional, Urine WBC 3-5, Ur Squamous Epith Cells Occasional 11/02/20 09:20: WBC 10.8, RBC 4.93, Hgb 14.8, Hct 43.7, MCV 88.7, MCH 30.0, MCHC 33.8, RDW 14.1, Plt Count 321, MPV 8.2, Neut % (Auto) 80.3 H, Lymph % (Auto) 13.4, [place] % (Auto) 3.4, Eos % (Auto) 2.4, Baso % (Auto) 0.5, Neut # (Auto) 8.7 H, Lymph # (Auto) 1.5, [place] # (Auto) 0.4, Eos # (Auto) 0.3, Baso # (Auto) 0.1 11/02/20 09:20: Sodium 135 L, Potassium 4.1, Chloride 96 L, Carbon Dioxide 29, Anion Gap 14.1, BUN 11, Creatinine 0.70, Estimated Creat Clear 33, Estimated GFR 81, Est GFR ( Amer) 98, Glucose 132 H, Calcium 9.8, Total Bilirubin 0.5, AST 40 H, ALT 28, Alkaline Phosphatase 176 H, Total Protein 8.1 D, Albumin 4.7, Globulin 3.4 H, Albumin/Globulin Ratio 1.4 11/02/20 09:20: SARS-CoV-2 IgG Ab (Rapid) Positive A, SARS-CoV-2 IgM Ab (Rapid) Negative 11/02/20 10:30: Stool Occult Blood Positive A 11/03/20 06:25: Sodium 137, Potassium 3.8, Chloride 106 I & O for Last 24 hours: Intake & Output 10/31/20 11/01/20 11/02/20 11/03/20 11:59 11:59 11:59 11:59 Intake Total 1258 / 1258 Output Total 100 / 100 Balance 1158 / 1158 Weight 100 lb 114 lb 3 oz - Constitutional no acute distress Comments: Somewhat more pleasant this morning. She does remain confused. - *Routine Respiratory Exam Absent: respiratory distress - *Routine Cardiovascular Exam Present: RRR
[2020-11-03 07:17] LABS: Eosinophils % 2.9 % (0.1-12.0); Hematocrit 35.3 % (37.0-47.0); Lymphocytes % 27.6 % (10-50); Mean Corpuscular HGB Conc 33.7 g/dL (31.8-35.4); Mean Corpuscular Hemoglobin 29.9 pg (27.0-31.2); Mean Corpuscular Volume 88.8 fl (81-99); Mean Platelet Volume 8.5 fl (7.4-10.4); Monocytes # 0.4 K/mm3 (0.1-1.0); Neutrophils % 62.5 % (37.0-80.0); Platelet Count 262 K/mm3 (142-424); Red Blood Count 3.97 M/mm3 (4.20-5.40); White Blood Count 6.2 K/mm3 (4.8-10.8)
[2020-11-03 07:28] LABS: Hemoglobin 11.9 g/dL (12.2-16.2)
[2020-11-03 07:33] LABS: INR 1.02 (0.9-1.1); Prothrombin Time 11.3 seconds (9.4-11.8)
[2020-11-03 07:40] VITALS: BP 160/61; PULSE 91; RESP 18; TEMP 36.6; O2SAT 95
[2020-11-03 09:00] VITALS: O2SAT 95
--- NOTE | 2020-11-03 10:17 | SW/DCPLANNER ---
Addendum entered by Fatoumata Easton 11/03/20 15:39: I have set this patient up with [facility] to discharge back to [facility]. Confirmation #:[id number]. Patients nurse (Geetha) is aware transportation has been arranged. Original Note: This patient resides at [facility]. I have spoke with Clarita from [place] and she has stated that this patient can discharge back and will need to be set up with [facility] [employer]. Clarita stated that a PT evaluation is NOT necessary for this patient. I will set up [facility] once discharge orders are in and patient is ready for discharge.
--- NOTE | 2020-11-03 11:17 | HMH.PHAINT ---
MEDICATION RECONCILIATION COMPLETED ON PATIENT USING [facility] FROM [facility]. -TEODORA MORGAN, EDIND
--- NOTE | 2020-11-03 12:58 | HMH.DCSUM ---
General - General Admission date:: 11/02/20 Discharge date: 11/03/20 Objective Vital signs: Temp Pulse Resp BP Pulse Ox 97.9 F 91 H 18 160/61 H 95 11/03/20 07:40 11/03/20 07:40 11/03/20 07:40 11/03/20 07:40 11/03/20 09:00 Results Labs on day of discharge: Labs from last 24 hours 11/03/20 11/03/20 11/03/20 06:25 06:25 06:25 WBC 6.2 D RBC 3.97 L Hgb 11.9 L D Hct 35.3 L MCV 88.8 MCH 29.9 MCHC 33.7 RDW 14.1 Plt Count 262 MPV 8.5 Neut % (Auto) 62.5 Lymph % (Auto) 27.6 [place] % (Auto) 6.0 Eos % (Auto) 2.9 Baso % (Auto) 1.0 Neut # (Auto) 3.9 Lymph # (Auto) 1.7 [place] # (Auto) 0.4 Eos # (Auto) 0.2 Baso # (Auto) 0.1 PT 11.3 INR 1.02 Sodium 137 Potassium 3.8 Chloride 106 Carbon Dioxide 25 Anion Gap 9.8 BUN 7 D Creatinine 0.70 Estimated Creat Clear 38 Estimated GFR 81 Est GFR ( Amer) 98 Glucose 101 H D Calcium 9.0 DS: Diagnosis - Discharge Diagnosis (1) Coffee ground emesis Status: Acute (2) Guaiac positive stools Status: Acute (3) GI bleed Status: Acute Discharge Plan - Patient Discharge Instructions Patient Instructions: Gastrointestinal Bleeding - Follow up Plan Home Medications: Home Medications Medication Instructions Recorded Confirmed Type albuterol sulfate 90 mcg/actuation 2 puff IH Q4HP PRN g 01/12/19 11/03/20 History aerosol inhaler aspirin 81 mg chewable tablet 81 mg PO DAILY 01/12/19 11/02/20 History atorvastatin 40 mg tablet 40 mg PO HS 01/12/19 11/02/20 History donepezil 10 mg tablet 20 mg PO HS tab 01/12/19 11/02/20 History ergocalciferol (vitamin D2) 1,250 50,000 unit PO WEEKLY 01/12/19 11/03/20 History mcg (50,000 unit) capsule memantine 28 mg capsule 28 mg PO HS 01/12/19 11/02/20 History sprinkle,extended release 24hr multivitamin,tx-minerals 1 tab PO DAILY 01/12/19 11/02/20 History omeprazole 20 mg capsule,delayed 20 mg PO DAILY 01/12/19 11/02/20 History release polyethylene glycol 3350 17 17 g PO BID 01/12/19 11/02/20 History gram/dose oral powder sertraline 100 mg tablet 150 mg PO DAILY 01/12/19 11/03/20 History tiotropium bromide 18 mcg capsule 1 cap IH DAILY 01/12/19 11/03/20 History with inhalation device Acetaminophen [Acetaminophen 325mg 650 mg PO Q6HP PRN 06/29/19 11/02/20 History tab] Quetiapine Fumarate 50 mg PO HS 06/29/19 11/02/20 History LORazepam [Lorazepam 0.5mg Tablet] 0.5 mg PO Q8HP PRN 11/02/20 11/03/20 History OXcarbazepine [Trileptal] 600 mg PO BID 11/02/20 11/02/20 History Ondansetron [Zofran 4mg ODT] 4 mg PO TIDP PRN 11/03/20 11/03/20 History Prescriptions/Medication Reconciliation: No Action aspirin 81 mg chewable tablet 81 mg PO DAILY atorvastatin 40 mg tablet 40 mg PO HS donepezil 10 mg tablet 20 mg PO HS tab memantine 28 mg capsule sprinkle,extended release 24hr 28 mg PO HS omeprazole 20 mg capsule,delayed release 20 mg PO DAILY polyethylene glycol 3350 17 gram/dose oral powder 17 g PO BID sertraline 100 mg tablet 150 mg PO DAILY tiotropium bromide 18 mcg capsule with inhalation device 1 cap IH DAILY ergocalciferol (vitamin D2) 1,250 mcg (50,000 unit) capsule 50,000 unit PO WEEKLY albuterol sulfate 90 mcg/actuation aerosol inhaler 2 puff IH Q4HP PRN g PRN Reason: shortness of breath or wheezing multivitamin,tx-minerals 1 tab PO DAILY Quetiapine Fumarate 50 mg PO HS Acetaminophen [Acetaminophen 325mg tab] 650 mg PO Q6HP PRN PRN Reason: As Needed For Fever Or Pain OXcarbazepine [Trileptal] 600 mg PO BID Ondansetron [Zofran 4mg ODT] 4 mg PO TIDP PRN PRN Reason: Nausea LORazepam [Lorazepam 0.5mg Tablet] 0.5 mg PO Q8HP PRN PRN Reason: Anxiety - Problem Reconciliation Problems Reviewed?: Yes
--- NOTE | 2020-11-03 12:59 | HMH.HPDC ---
General - General Admission date:: 11/02/20 Discharge date: 11/03/20 *Admission Date: 11/02/20 *Chief complaint: coffee ground emesis *History of present illness: Pt was admitted for coffee ground emesis, suggestive of upper gi bleed. Surgery was consulted and she refused egd twice. On rounds this morning she continued to refuse. No further episodes, abdom is soft and w/o focal tenderness. [facility] History Medical History: Reports:: Anxiety, Chronic Obstructive Pulmonary Disease (COPD), Depression, Hyperlipidemia, Hypertension Denies:: Cancer, Diabetes Mellitus Type 1, Diabetes Mellitus Type 2, MRSA *Have you ever received a pneumonia vaccine?: Yes *Have you received a flu vaccine this season?: Yes Other Medical History: Reports: Anemia Other Surgeries: Yes: Appendectomy, Cardiac Catheterization, Cholecystectomy, Other Amputation: No Fractures: No - *Social History Last grade of school completed: High school graduate Smoking Status: Never smoker Alcohol Intake: never Substance Use Type: denies use *Occupational Status:: retired Housing: senior care Household Members: none *Travel in the last 8 weeks: None - Psychiatric History Pschychiatric History:: Reports:: Anxiety, Depression Family Hx:: No significant family history Review of Systems - Constitutional Denies anorexia, Denies weakness - Eyes Denies change in vision - ENT Denies abnormal hearing - *Cardiovascular Denies chest pain, Denies chest pain at rest, Denies shortness of breath with activity, Denies irregular heart rhythm - *Respiratory Denies change in phlegm color, Denies chest congestion - *Gastrointestinal Reports coffee ground vomit, Reports nausea, Denies change in stools, Denies incontinent of stools, Denies heartburn, Denies bright, red blood in stools, Denies black, tarry stools, Denies constant urge to pass stool - *Genitourinary Denies pelvic pain - *Musculoskeletal Denies decreased muscle mass, Denies limited joint movement - Integumentary/Breasts Denies yellowing of the skin, Denies lesions - *Neurologic Reports memory loss, Denies abnormal walking - Psychiatric Reports confusion, Reports memory loss, Denies depression - Endocrine Denies increased hunger - Hematologic/Lymphatic Denies easy bleeding, Denies easy bruising - Allergic/Immunologic Denies GI upset with certain foods, Denies hives Exam Vital signs and Labs for Last 24 Hours: Temp Pulse Resp BP Pulse Ox 97.9 F 91 H 18 160/61 H 95 11/03/20 07:40 11/03/20 07:40 11/03/20 07:40 11/03/20 07:40 11/03/20 09:00 Laboratory Results - last 24 hr 11/03/20 06:25: WBC 6.2 D, RBC 3.97 L, Hgb 11.9 L D, Hct 35.3 L, MCV 88.8, MCH 29.9, MCHC 33.7, RDW 14.1, Plt Count 262, MPV 8.5, Neut % (Auto) 62.5, Lymph % (Auto) 27.6, [place] % (Auto) 6.0, Eos % (Auto) 2.9, Baso % (Auto) 1.0, Neut # (Auto) 3.9, Lymph # (Auto) 1.7, [place] # (Auto) 0.4, Eos # (Auto) 0.2, Baso # (Auto) 0.1 11/03/20 06:25: PT 11.3, INR 1.02 11/03/20 06:25: Sodium 137, Potassium 3.8, Chloride 106, Carbon Dioxide 25, Anion Gap 9.8, BUN 7 D, Creatinine 0.70, Estimated Creat Clear 38, Estimated GFR 81, Est GFR ( Amer) 98, Glucose 101 H D, Calcium 9.0 I & O for Last 24 hours: Intake & Output 10/31/20 11/01/20 11/02/20 11/03/20 23:59 23:59 23:59 23:59 Intake Total 1258 / 1258 Output Total 100 / 100 Balance 1158 / 1158 Weight 100 lb 114 lb 3 oz - Constitutional no acute distress - *Routine HEENT Exam Head: Present: normocephalic Eye: Present: EOMI, PERRL ENT: Present: mucous membranes moist - *Routine Neck Exam Present: supple. Absent: lymphadenopathy - *Routine Respiratory Exam Present: CTA bilaterally - *Routine Cardiovascular Exam Present: RRR - *Routine Abdominal Exam Present: soft. Absent: tenderness, distended, rebound, firm, rigid, mass, hernia, bruit - *Routine Extremities Exam Absent: cyanosis, clubbing, edema - *Routine Skin Exam Present:
--- NOTE | 2020-11-03 15:19 | PC.NURSE ---
Called report to Clarita at [facility].
--- NOTE | 2020-11-03 15:27 | PC.NURSE ---
Contacted Dr Hare about need to change zofran from IV to PO on discharge summary.
[2020-11-03 15:30] VITALS: BP 159/80; PULSE 91; RESP 18; TEMP 36.6; O2SAT 95
== END 2020-11-03 16:15 | disposition other institution (70) ==
LOC: ER 09:12 → 2ND 13:10
PROVIDERS: Admitting Provider Family Medicine; Emergency Provider Emergency Medicine; PCP Emergency Medicine; Visit Provider Family Medicine
DX: K92.2 Gastrointestinal hemorrhage, unspecified (principal); J44.9 Chronic obstructive pulmonary disease, unspecified; I10 Essential (primary) hypertension; E78.5 Hyperlipidemia, unspecified; Z79.899 Other long term (current) drug therapy; Z79.52 Long term (current) use of systemic steroids; Z79.82 Long term (current) use of aspirin
CPT/HCPCS: 36415; 74177; 80048; 80053; 81001; 82272; 85025; 85610; 86328; 96365; 96375; 99285; G0328; G0378; J2405; Q9967

== ENCOUNTER 2020-11-09 09:35 | Emergency (ER) | payer MEDICARE, MEDICAID, SELFPAY ==
--- NOTE | 2020-11-09 09:40 | PC.NURSE ---
RANDELL HELTON removed C-collar
--- NOTE | 2020-11-09 09:42 | PC.NURSE ---
pt given a bed bath upon arrival to ED, pt was saturated with urine, pt now in hospital gown, non-skid socks and warm blankets covering her. Will continue to monitor
[2020-11-09 09:43] VITALS: BP 202/83; PULSE 70; RESP 18; TEMP 36.7; O2SAT 96; BMI 18.0
--- NOTE | 2020-11-09 09:48 | XR_ITS ---
PROCEDURE: XR CHEST PORTABLE CLINICAL HISTORY: fall Posttraumatic pain, fall with injury and pain COMPARISON: CR XR CHEST 2V from 06/28/[address] CHEST W CON from 06/29/2019 CR XR CHEST PORTABLE from 03/03/2020 CR XR CHEST PORTABLE from 07/26/2020 FINDINGS: The cardiomediastinal silhouette and pulmonary vascularity are within normal limits. The lungs are clear without infiltrates, suspicious nodules, or pleural effusions. No acute bony abnormalities. IMPRESSION: No acute findings. Dictated by: Sravan Stoll MD 11/09/2020 11:14 Sravan Stoll MD in [facility] 11/09/2020 11:14
--- NOTE | 2020-11-09 09:49 | CT_ITS ---
PROCEDURE: CT HEAD/BRAIN WO CON CLINICAL INDICATION: fall . Head injury with headache/pain, contusion, abrasion or hematoma Altered mental status, altered level of consciousness, confusion, disorientation COMPARISON: CT CT HEAD/BRAIN WO CON from 08/01/2020 TECHNIQUE: Axial images obtained. All CT scans at the facility use one or more dose reduction, viz: automated exposure control, ma/kV adjustment per patient size (including targeted exams where dose is matched to indication, i.e. head), or iterative reconstruction technique. FINDINGS: No midline shift, mass effect, intracranial hemorrhage, hydrocephalus, or extra-axial fluid collection is evident. There is generalized atrophy with hypoattenuation of the periventricular white matter consistent with microangiopathic changes.. There is ventriculomegaly which may be due to ex vacuo dilatation. The calvarium has an unremarkable appearance. No mastoid effusion. No sinus air-fluid level. IMPRESSION: No acute intracranial finding Dictated by: Sravan Stoll MD 11/09/2020 10:47 Sravan Stoll MD in [facility] 11/09/2020 10:47
--- NOTE | 2020-11-09 09:49 | CT_ITS ---
PROCEDURE: CT CERVICAL SPINE WO CON CLINICAL INDICATION: fall, neck pain Posttraumatic pain COMPARISON: CT CT CERVICAL SPINE WO CON from 07/26/2020 TECHNIQUE: Axial images obtained with sagittal and coronal reformats. All CT scans at the facility use one or more dose reduction, viz: automated exposure control, ma/kV adjustment per patient size (including targeted exams where dose is matched to indication, i.e. head), or iterative reconstruction technique. Axial spiral CT scanning performed of the cervical spine beginning at the base of the skull and continuing to the upper T-spine. 3-D multiplanar reconstruction with 3-D manipulation of volumetric data set in image rendering was completed by the radiologist and/or technologist with the supervision of the radiologist on independent workstation. FINDINGS: There is normal alignment. Patient's head is slightly tilted toward the right. Multilevel cervical spondylosis is present with degenerative disc disease along with facet and uncovertebral hypertrophy. Canal stenosis is present at C4-C5 and C5-C6 with bilateral foraminal narrowing. Canal stenosis also noted at C6-C7 with bilateral foraminal narrowing. Lung apices are clear. IMPRESSION: No acute fracture. Cervical spondylosis with canal stenosis Dictated by: Sravan Stoll MD 11/09/2020 10:51 Sravan Stoll MD in [facility] 11/09/2020 10:51
--- NOTE | 2020-11-09 09:49 | ECG_ITS ---
APPROVED REPORT Exam: Resting ECG HR:67 bpm ECG Measurements Heart Rate 67 AXES CA 132 P 70 QRSd 88 QRS 60 QT 432 T 84 QTc 456 Conclusion Normal sinus rhythm with sinus arrhythmia Incomplete right bundle-branch block with poor R wave progression-previously noted Abnormal ECG Electronically signed by : Hany Sanders, 11/09/2020 17:10:44
--- NOTE | 2020-11-09 09:50 | HMH.EDGENADL ---
ED Disposition Clinical Impression: Fall Qualifiers: Encounter type: initial encounter Qualified Code(s): W19.XXXA - Unspecified fall, initial encounter Cervical muscle strain Qualifiers: Encounter type: initial encounter Qualified Code(s): S16.1XXA - Strain of muscle, fascia and tendon at neck level, initial encounter Disposition: Home, Self-Care Condition on Discharge: Fair Instructions: How to Prevent Falls, DI for Cervical Muscle Strain Additional Instructions: You have been evaluated for fall and cervical spine strain. Please take care to avoid falls. Take all medications as prescribed. Take Tylenol or Motrin for pain. Follow-up with your primary care doctor in 24 to 48 hours for recheck. Return to the emergency department for any new or worsening symptoms. Time of Disposition: 11:01 - Critical Care Critical Care Time: No Attestation: On , the high probability of a clinically significant, sudden or life threatening deterioration of the following system(s) required my full and direct attention, intervention and personal management. The time I documented below is in addition to time spent performing reported procedures but includes the following listed in this critical care notation. Medical Decision Making - Medical Records Medical records reviewed: Yes: I reviewed the patient's medical records. - Edward Inquiry Pt receiving controlled substance: No Vital Signs: 11/09/20 09:43 11/09/20 09:51 11/09/20 10:13 Temperature 98.0 F Temperature Source Oral Pulse Rate [Right Radial] 70 59 L 63 Respiratory Rate 18 Blood Pressure [Right Arm] 202/83 H 175/76 H 177/79 H Blood Pressure Mean [Right Arm] 122 109 111 Blood Pressure Source [Right Arm] Automatic Cuff Automatic Cuff Automatic Cuff Blood Pressure Position [Right Arm] Sitting Sitting Sitting 02 Sat by Pulse Oximetry 96 96 94 L Oxygen Delivery Method Room Air Room Air Room Air 11/09/20 10:51 Temperature Temperature Source Pulse Rate [Right Radial] 60 Respiratory Rate Blood Pressure [Right Arm] Blood Pressure Mean [Right Arm] Blood Pressure Source [Right Arm] Blood Pressure Position [Right Arm] 02 Sat by Pulse Oximetry 96 Oxygen Delivery Method Room Air - Lab Data Lab Results 11/09/20 10:01: Urine Color Yellow, Urine Appearance Clear, Urine pH 7.0, Ur Specific [place] 1.010, Urine Protein Negative, Urine Glucose (UA) Negative, Urine Ketones Negative, Urine Blood Negative, Urine Nitrate Negative, Urine Bilirubin Negative, Urine Urobilinogen 0.2, Ur Leukocyte Esterase Negative, Urine RBC Occasional, Urine WBC 3-5, Ur Squamous Epith Cells 3-5 11/09/20 10:01: WBC 5.8, RBC 4.36, Hgb 13.2, Hct 38.6, MCV 88.6, MCH 30.2, MCHC 34.1, RDW 14.0, Plt Count 279, MPV 8.6, Neut % (Auto) 56.5, Lymph % (Auto) 29.9, [place] % (Auto) 5.8, Eos % (Auto) 6.5, Baso % (Auto) 1.3, Neut # (Auto) 3.3, Lymph # (Auto) 1.7, [place] # (Auto) 0.3, Eos # (Auto) 0.4, Baso # (Auto) 0.1 11/09/20 10:01: Sodium 137, Potassium 3.7, Chloride 97 L, Carbon Dioxide 33 H, Anion Gap 10.7, BUN 6 L, Creatinine 0.80, Estimated Creat Clear 35, Estimated GFR 69, Est GFR ( Amer) 84, Glucose 108 H, Calcium 9.4, Total Bilirubin 0.4, AST 35, ALT 22, Alkaline Phosphatase 140 H, Total Protein 7.1, Albumin 4.1, Globulin 3.0, Albumin/Globulin Ratio 1.4 Result diagrams: 11/09/20 10:01 11/09/20 10:01 Orders (Tests/Meds): ORDERS Category Date Time Status CXR --portable [XR chest portable] Stat Exams 11/09/20 09:48 Taken EKG Request [ECG Request by /Wily] Stat Y 11/09/20 09:49 Ordered Medical Decision Narrative: In summary this is a 79-year-old female presenting to the emergency department with headache and neck pain after a fall. Patient clinically stable on arrival. Vital signs are within normal limits. Her story is most consistent with a mechanical fall. Doubt syncope. Will obtain noncontrast head CT and CT C-spine. Will obtain screening CBC, CMP, urinalysis to assess for
[2020-11-09 09:51] VITALS: BP 175/76; PULSE 59; O2SAT 96
--- NOTE | 2020-11-09 10:11 | PC.NURSE ---
Pt going to radiology
[2020-11-09 10:13] VITALS: BP 177/79; PULSE 63; O2SAT 94
[2020-11-09 10:13] LABS: Microscopic, Urine URINE MICROSCOPIC (MICROSCOPIC)
[2020-11-09 10:14] LABS: Basophils # 0.1 K/mm3 (0-0.2); Basophils % 1.3 % (0.1-2.0); Eosinophils # 0.4 K/mm3 (0.0-0.4); Eosinophils % 6.5 % (0.1-12.0); Hematocrit 38.6 % (37.0-47.0); Hemoglobin 13.2 g/dL (12.2-16.2); Lymphocytes # 1.7 K/mm3 (0.7-4.5); Lymphocytes % 29.9 % (10-50); Mean Corpuscular HGB Conc 34.1 g/dL (31.8-35.4); Mean Corpuscular Hemoglobin 30.2 pg (27.0-31.2); Mean Corpuscular Volume 88.6 fl (81-99); Mean Platelet Volume 8.6 fl (7.4-10.4); Monocytes # 0.3 K/mm3 (0.1-1.0); Monocytes % 5.8 % (1.7-9.3); Neutrophils # 3.3 K/mm3 (1.8-7.8); Neutrophils % 56.5 % (37.0-80.0); Platelet Count 279 K/mm3 (142-424); Red Blood Count 4.36 M/mm3 (4.20-5.40); White Blood Count 5.8 K/mm3 (4.8-10.8)
[2020-11-09 10:22] LABS: Alanine Aminotransferase 22 U/L (12-78); Albumin Level 4.1 g/dl (3.5-5.0); Albumin/Globulin Ratio 1.4 (1.1-1.8); Alkaline Phosphatase 140 U/L (38-126); Anion Gap 10.7 mEq/L (5-15); Aspartate Amino Transferase 35 U/L (14-36); Bilirubin,Total 0.4 mg/dl (0.2-1.3); Blood Urea Nitrogen 6 mg/dl (7-17); Calcium 9.4 mg/dl (8.4-10.2); Carbon Dioxide 33 mmol/L (22.0-30.0); Chloride 97 mmol/L (98-107); Creatinine Clearance Estimated 35 mL/min (50-200); Estimated Glomerular Filt Rate 69 ml/min (>60); GFR (African American) 84 ML/MIN (>60); Glucose 108 mg/dl (74-100); Potassium 3.7 mmoL/L (3.5-5.1); Sodium 137 mmol/L (136-145); Total Protein,Serum 7.1 g/dl (6.3-8.2)
[2020-11-09 10:26] LABS: Appearance,Urine CLEAR (Clear); Bilirubin,Urine Negative (Negative); Blood, Urine Negative (Negative); Color,Urine YELLOW (Yellow); Glucose,Urine (UA) Negative (Negative); Ketones,Urine Negative (Negative); Leukocyte Esterase,Urine Negative (Negative); Nitrate,Urine Negative (Negative); Protein,Urine Negative (Negative); Urobilinogen,Urine 0.2 EU/dl (0.2)
[2020-11-09 10:44] LABS: RBC,Urine Occasional #/hpf (0-3)
[2020-11-09 10:51] VITALS: PULSE 60; O2SAT 96
--- NOTE | 2020-11-09 12:10 | PC.NURSE ---
[facility] aware of pt being ready for discharge.
[2020-11-09 13:10] VITALS: BP 177/79; PULSE 60; RESP 18; TEMP 36.7; O2SAT 96
== END 2020-11-09 13:10 | disposition home or self-care (01) ==
PROVIDERS: Emergency Provider Emergency Medicine; PCP Emergency Medicine
DX: S16.1XXA Strain of muscle, fascia and tendon at neck level, initial encounter (principal); W01.0XXA Fall on same level from slipping, tripping and stumbling without subsequent striking against object, initial encounter; Y92.192 Bathroom in other specified residential institution as the place of occurrence of the external cause; R55 Syncope and collapse; F41.8 Other specified anxiety disorders; J44.9 Chronic obstructive pulmonary disease, unspecified; E78.5 Hyperlipidemia, unspecified; I10 Essential (primary) hypertension; Z79.899 Other long term (current) drug therapy
CPT/HCPCS: 70450; 71045; 72125; 80053; 81001; 85025; 93005; 99283

== ENCOUNTER 2021-01-15 11:51 | Emergency (ER) | payer MEDICARE, MEDICAID, SELFPAY ==
[2021-01-15 11:53] VITALS: BP 148/67; PULSE 57; RESP 18; TEMP 36.4; O2SAT 95; BMI 18.8
--- NOTE | 2021-01-15 11:55 | HMH.EDGENADL ---
ED Disposition Clinical Impression: Vomiting and diarrhea, Breast mass, right Disposition: Home, Self-Care Condition on Discharge: Good Instructions: DI for Diarrhea and Traveler's Diarrhea -- Adult, DI for Vomiting -- Adult Additional Instructions: Zofran as needed for nausea and vomiting. Follow-up right breast mass with Dr. Sanchez. Referrals: Bismark Sanchez MD [Primary Care Provider] - - Critical Care Critical Care Time: No Attestation: On , the high probability of a clinically significant, sudden or life threatening deterioration of the following system(s) required my full and direct attention, intervention and personal management. The time I documented below is in addition to time spent performing reported procedures but includes the following listed in this critical care notation. Medical Decision Making - Edward Inquiry Pt receiving controlled substance: No Vital Signs: 01/15/21 11:53 01/15/21 12:07 01/15/21 12:46 Temperature 97.6 F Temperature Source Oral Pulse Rate [Right] 57 L 57 L 55 L Respiratory Rate 18 16 16 Blood Pressure [Right Arm] 148/67 H 170/79 H 166/76 H Blood Pressure Mean [Right Arm] 94 109 106 Blood Pressure Source [Right Arm] Automatic Cuff Blood Pressure Position [Right Arm] Sitting 02 Sat by Pulse Oximetry 95 96 96 Oxygen Delivery Method Room Air 01/15/21 13:36 01/15/21 16:00 Temperature Temperature Source Pulse Rate [Right] 57 L 59 L Respiratory Rate 16 Blood Pressure [Right Arm] 172/74 H 167/86 H Blood Pressure Mean [Right Arm] 106 113 Blood Pressure Source [Right Arm] Automatic Cuff Blood Pressure Position [Right Arm] 02 Sat by Pulse Oximetry 98 98 Oxygen Delivery Method - Lab Data Lab Results 01/15/21 12:07: WBC 4.9, RBC 4.22, Hgb 12.3, Hct 36.1 L, MCV 85.5, MCH 29.1, MCHC 34.0, RDW 13.5, Plt Count 273, MPV 8.6, Neut % (Auto) 53.3, Lymph % (Auto) 33.4, [place] % (Auto) 6.4, Eos % (Auto) 5.5, Baso % (Auto) 1.3, Neut # (Auto) 2.6, Lymph # (Auto) 1.6, [place] # (Auto) 0.3, Eos # (Auto) 0.3, Baso # (Auto) 0.1 01/15/21 12:07: Sodium 130 L, Potassium 3.6, Chloride 96 L, Carbon Dioxide 26, Anion Gap 11.6, BUN 6 L, Creatinine 0.70, Estimated Creat Clear 36, Estimated GFR 81, Est GFR ( Amer) 98, Glucose 107 H, Calcium 9.1, Total Bilirubin 0.3, AST 36, ALT 24, Alkaline Phosphatase 141 H, Troponin I < 0.01, Total Protein 7.2, Albumin 4.3, Globulin 2.9, Albumin/Globulin Ratio 1.5 01/15/21 12:07: Lipase 93 01/15/21 12:27: Urine Color Yellow, Urine Appearance Clear, Urine pH 8.0, Ur Specific [place] 1.015, Urine Protein Trace, Urine Glucose (UA) Negative, Urine Ketones Negative, Urine Blood Trace-i, Urine Nitrate Negative, Urine Bilirubin Negative, Urine Urobilinogen 0.2, Ur Leukocyte Esterase Negative, Urine RBC Occasional, Urine WBC Occasional, Ur Squamous Epith Cells Occasional, Amorphous Sediment 2+, Urine Bacteria 1+, Hyaline Casts Occasional Result diagrams: 01/15/21 12:07 01/15/21 12:07 Orders (Tests/Meds): ORDERS Category Date Time Status CT abdomen pelvis w con Stat Cat Scan 01/15/21 12:02 Ordered Diarrhea 6-11 Panel, Cdiff PCR Stat Lab 01/15/21 12:00 Ordered Occult Blood,Stool Stat Lab 01/15/21 12:01 Ordered - CT Data CT Scan: Abdomen, Pelvis Time Received: 15:59 ([facility] verbal report) ED CT Reviewed: Yes: I have viewed the radiologist's interpretation Findings Narrative: 1.6 cm mass right breast. Nothing acute in abdomen or pelvis. - ECG Data Tracing #1 EKG interpreted by Chris Luke MD: Rhythm: sinus bradycardia Rate: 57 Harper: normal Ectopy: none Conduction: normal ST Segment Changes: none T Wave Changes: none Q Waves: none No evidence of acute ischemia or injury - Reevaluation(s) Time: 16:10 Reevaluation #1: Feels fine. No nausea. No pain. No further vomiting or diarrhea. Medical Decision Narrative: CT result reports right breast mass. No prior mammograms found at t
--- NOTE | 2021-01-15 12:02 | CT_ITS ---
PROCEDURE: Dictated by: Sravan Stoll MD 01/16/2021 14:20 Sravan Stoll MD in [place] 01/16/2021 14:20
[2021-01-15 12:07] VITALS: BP 170/79; PULSE 57; RESP 16; O2SAT 96
[2021-01-15 12:17] LABS: Basophils # 0.1 K/mm3 (0-0.2); Basophils % 1.3 % (0.1-2.0); Eosinophils # 0.3 K/mm3 (0.0-0.4); Eosinophils % 5.5 % (0.1-12.0); Hematocrit 36.1 % (37.0-47.0); Hemoglobin 12.3 g/dL (12.2-16.2); Lymphocytes # 1.6 K/mm3 (0.7-4.5); Lymphocytes % 33.4 % (10-50); Mean Corpuscular Hemoglobin 29.1 pg (27.0-31.2); Mean Corpuscular Volume 85.5 fl (81-99); Mean Platelet Volume 8.6 fl (7.4-10.4); Monocytes # 0.3 K/mm3 (0.1-1.0); Monocytes % 6.4 % (1.7-9.3); Neutrophils # 2.6 K/mm3 (1.8-7.8); Neutrophils % 53.3 % (37.0-80.0); Platelet Count 273 K/mm3 (142-424); Red Blood Count 4.22 M/mm3 (4.20-5.40); Red Cell Distribution Width 13.5 % (11.5-17.5); White Blood Count 4.9 K/mm3 (4.8-10.8)
--- NOTE | 2021-01-15 12:17 | ECG_ITS ---
APPROVED REPORT Exam: Resting ECG HR:57 bpm ECG Measurements Heart Rate 57 AXES NE 132 P 55 QRSd 92 QRS 68 QT 474 T 83 QTc 461 Conclusion Sinus bradycardia Otherwise normal ECG Electronically signed by : Hany Sanders, 01/15/2021 20:24:28
[2021-01-15 12:24] LABS: Lipase 93 U/L (23-300)
[2021-01-15 12:25] LABS: Alanine Aminotransferase 24 U/L (12-78); Albumin Level 4.3 g/dl (3.5-5.0); Albumin/Globulin Ratio 1.5 (1.1-1.8); Alkaline Phosphatase 141 U/L (38-126); Anion Gap 11.6 mEq/L (5-15); Aspartate Amino Transferase 36 U/L (14-36); Bilirubin,Total 0.3 mg/dl (0.2-1.3); Blood Urea Nitrogen 6 mg/dl (7-17); Calcium 9.1 mg/dl (8.4-10.2); Carbon Dioxide 26 mmol/L (22.0-30.0); Chloride 96 mmol/L (98-107); Creatinine Clearance Estimated 36 mL/min (50-200); Estimated Glomerular Filt Rate 81 ml/min (>60); GFR (African American) 98 ML/MIN (>60); Globulin 2.9 g/dL (1.3-3.2); Glucose 107 mg/dl (74-100); Potassium 3.6 mmoL/L (3.5-5.1); Sodium 130 mmol/L (136-145); Total Protein,Serum 7.2 g/dl (6.3-8.2)
[2021-01-15 12:31] LABS: Microscopic, Urine URINE MICROSCOPIC (MICROSCOPIC)
[2021-01-15 12:34] LABS: Appearance,Urine CLEAR (Clear); Bilirubin,Urine Negative (Negative); Blood, Urine TRACE-I (Negative); Color,Urine YELLOW (Yellow); Glucose,Urine (UA) Negative (Negative); Ketones,Urine Negative (Negative); Leukocyte Esterase,Urine Negative (Negative); Nitrate,Urine Negative (Negative); Protein,Urine TRACE (Negative); Specific Gravity, Urine 1.015 (1.005-1.030); Urobilinogen,Urine 0.2 EU/dl (0.2)
[2021-01-15 12:38] LABS: Troponin I < 0.01 ng/ml (0.00-0.034)
[2021-01-15 12:46] VITALS: BP 166/76; PULSE 55; RESP 16; O2SAT 96
[2021-01-15 12:46] LABS: Amorphous Sediment,Urine 2+ /lpf; Bacteria,Urine 1+ /lpf; Hyaline Casts,Urine Occasional #/lpf (0); RBC,Urine Occasional #/hpf (0-3); Squamous Epithelial Cell,Urine Occasional #/hpf (0-5); WBC,Urine Occasional #/hpf (0-3)
--- NOTE | 2021-01-15 13:15 | PC.NURSE ---
[facility] is aware of pt transfer to [facility] for ct scan, states they will transport pt as soon as their other truck is back in town
--- NOTE | 2021-01-15 13:29 | PC.NURSE ---
spoke with maritza at [facility] radiology department to notify her pt will be coming over for ct scan
[2021-01-15 13:36] VITALS: BP 172/74; PULSE 57; RESP 16; O2SAT 98
--- NOTE | 2021-01-15 14:05 | PC.NURSE ---
pt to [facility] for Ct abd with iv contrast, [facility] radiologist called for GFR results.
[2021-01-15 16:00] VITALS: BP 167/86; PULSE 59; O2SAT 98
--- NOTE | 2021-01-15 16:00 | PC.NURSE ---
verbal report on pt ct scan from maritza in radiology at [facility]: 1.6 cm mass medial R breast, nothing acute in abdomen and pelvis. Maritza states she has tried to fax report multiple time but has been unsuccessful, states she will keep trying to fax it . notified ER of the above.
[2021-01-15 16:40] VITALS: BP 167/86; PULSE 59; RESP 16; TEMP 36.4; O2SAT 98
== END 2021-01-15 16:40 | disposition home or self-care (01) ==
PROVIDERS: Emergency Provider Emergency Medicine; PCP Emergency Medicine
DX: R11.10 Vomiting, unspecified (principal); R19.7 Diarrhea, unspecified; D24.1 Benign neoplasm of right breast; E78.5 Hyperlipidemia, unspecified; I10 Essential (primary) hypertension; J44.9 Chronic obstructive pulmonary disease, unspecified; F41.8 Other specified anxiety disorders; Z79.899 Other long term (current) drug therapy
CPT/HCPCS: 74177; 80053; 81001; 83690; 84484; 85025; 93005; 99284

== ENCOUNTER 2021-01-26 09:44 | Inpatient (IN) | payer MEDICARE, MEDICAID, SELFPAY ==
[2021-01-26] VITALS (16 sets, daily range): BP systolic 138–218; BP diastolic 61–113; PULSE 56–78; RESP 16–20; TEMP 36.6–36.9; O2SAT 95–100; BMI 17.2; BMI 19.2
--- NOTE | 2021-01-26 09:55 | HMH.EDGENADL ---
ED Disposition Clinical Impression: Multiple falls UTI (urinary tract infection) Qualifiers: Urinary tract infection type: site unspecified Hematuria presence: without hematuria Qualified Code(s): N39.0 - Urinary tract infection, site not specified Disposition: Admitted as Observation Condition on Discharge: Good Referrals: Bismark Sanchez MD [Primary Care Provider] - - Critical Care Critical Care Time: No Attestation: On , the high probability of a clinically significant, sudden or life threatening deterioration of the following system(s) required my full and direct attention, intervention and personal management. The time I documented below is in addition to time spent performing reported procedures but includes the following listed in this critical care notation. Medical Decision Making - Medical Records Medical records reviewed: Yes: I reviewed the patient's medical records. MR Comment: Seen by me in this emergency department on 01/15/2021 for vomiting and diarrhea, slumping over. Work-up unremarkable including abdominal CAT scan. - Edward Inquiry Pt receiving controlled substance: No Vital Signs: 01/26/21 09:45 01/26/21 10:00 01/26/21 10:41 Temperature 98.4 F Temperature Source Oral Pulse Rate 66 60 Pulse Rate [Right] 66 Respiratory Rate 18 Blood Pressure 147/71 H 200/99 H Blood Pressure [Right Arm] 138/61 Blood Pressure Mean 96 130 Blood Pressure Mean [Right Arm] 86 02 Sat by Pulse Oximetry 98 96 96 Oxygen Delivery Method Room Air 01/26/21 11:01 01/26/21 11:30 01/26/21 11:56 Temperature Temperature Source Pulse Rate 56 L 59 L 57 L Pulse Rate [Right] Respiratory Rate Blood Pressure 202/79 H 195/88 H 202/94 H Blood Pressure [Right Arm] Blood Pressure Mean 128 125 130 Blood Pressure Mean [Right Arm] 02 Sat by Pulse Oximetry 95 96 97 Oxygen Delivery Method - Lab Data Lab Results 01/26/21 09:37: WBC 5.3, RBC 4.12 L, Hgb 12.2, Hct 35.2 L, MCV 85.5, MCH 29.6, MCHC 34.7, RDW 13.4, Plt Count 287, MPV 8.2, Neut % (Auto) 61.1, Lymph % (Auto) 27.9, [place] % (Auto) 4.5, Eos % (Auto) 5.4, Baso % (Auto) 1.1, Neut # (Auto) 3.3, Lymph # (Auto) 1.5, [place] # (Auto) 0.2, Eos # (Auto) 0.3, Baso # (Auto) 0.1 01/26/21 09:37: Sodium 132 L, Potassium 3.4 L, Chloride 101, Carbon Dioxide 24, Anion Gap 10.4, BUN 6 L, Creatinine 0.70, Estimated Creat Clear 33, Estimated GFR 81, Est GFR ( Amer) 98, Glucose 122 H, Calcium 9.2, Total Bilirubin 0.5, AST 36, ALT 22, Alkaline Phosphatase 124, Troponin I < 0.01, Total Protein 6.8, Albumin 4.1, Globulin 2.7, Albumin/Globulin Ratio 1.5 01/26/21 09:37: Lactate 1.1 01/26/21 10:45: Urine Color Yellow, Urine Appearance Sl cloudy, Urine pH 7.0, Ur Specific [place] 1.010, Urine Protein Negative, Urine Glucose (UA) Negative, Urine Ketones Negative, Urine Blood Trace-i, Urine Nitrate Positive, Urine Bilirubin Negative, Urine Urobilinogen 1.0, Ur Leukocyte Esterase 3+ A, Urine RBC Occasional, Urine WBC Tntc, Ur Squamous Epith Cells None, Urine Bacteria 4+ Result diagrams: 01/26/21 09:37 01/26/21 09:37 Orders (Tests/Meds): ED MEDICATIONS Generic Name Dose Route Start Last Admin Trade Name Freq PRN Reason Stop Dose Admin Ceftriaxone Sodium 1 gm/ 50 mls @ 100 mls/hr 01/26/21 11:30 01/26/21 11:31 Sodium Chloride IV 02/09/21 11:29 100 mls/hr Q24H EVANGELINA Administration Protocol ORDERS Category Date Time Status Troponin I Q3H Lab 01/26/21 13:15 Ordered Troponin I Q3H Lab 01/26/21 16:15 Ordered Blood Culture Stat Micro 01/26/21 09:37 Received Urine Culture Stat Micro 01/26/21 10:45 Received - Radiology Data #1 Image(s): Chest, Pelvis Image Reviewed: Yes I reviewed the patient's radiology image X-rays interpreted by Chris Luke MD.: Chest: no pneumothorax or hemothorax, no visible rib fractures, normal mediastinum Pelvis: no fracture or dislocation - CT Data CT Scan: Head Time Received:
--- NOTE | 2021-01-26 10:00 | CT_ITS ---
PROCEDURE: CT HEAD/BRAIN WO CON CLINICAL INDICATION: falls Frequent falls COMPARISON: CT CT HEAD/BRAIN WO CON from 11/09/2020 TECHNIQUE: Axial images obtained. All CT scans at the facility use one or more dose reduction, viz: automated exposure control, ma/kV adjustment per patient size (including targeted exams where dose is matched to indication, i.e. head), or iterative reconstruction technique. FINDINGS: No midline shift, mass effect, intracranial hemorrhage, hydrocephalus, or extra-axial fluid collection is evident. There is generalized atrophy with periventricular hypodensity consistent with ischemic gliotic change from microvascular disease. The ventricles are enlarged as before. Normal pressure hydrocephalus is a consideration. Ventricular dilatation may also be due to underlying brain volume loss. The calvarium has an unremarkable appearance. No mastoid effusion. Minimal mucosal thickening of the left maxillary sinus IMPRESSION: 1. No acute intracranial findings. 2. Ventricular dilatation which may be due to ex vacuo dilatation or possible normal pressure hydrocephalus. Dictated by: Sravan Stoll MD 01/26/2021 11:32 Sravan Stoll MD in [place] 01/26/2021 11:32
--- NOTE | 2021-01-26 10:01 | XR_ITS ---
PROCEDURE: XR CHEST PORTABLE CLINICAL HISTORY: falls Injury with pain COMPARISON: CT CT CHEST W CON from 06/29/2019 CR XR CHEST PORTABLE from 03/03/2020 CR XR CHEST PORTABLE from 07/26/2020 CR XR CHEST PORTABLE from 11/09/2020 FINDINGS: The cardiomediastinal silhouette and pulmonary vascularity are within normal limits. The lungs are clear without infiltrates, suspicious nodules, or pleural effusions. Mild thoracic curvature convex left IMPRESSION: No acute findings. Dictated by: Sravan Stoll MD 01/26/2021 11:04 Sravan Stoll MD in [place] 01/26/2021 11:04
--- NOTE | 2021-01-26 10:02 | XR_ITS ---
PROCEDURE: XR PELVIS 1-2V CLINICAL INDICATION: falls Posttraumatic pain COMPARISON: CR XR PELVIS 1-2V from 07/26/2020 TECHNIQUE: XR Pelvis AP View FINDINGS: No fracture or dislocation is evident. No significant degenerative change. Minimal hyperostosis at the symphysis pubis IMPRESSION: No acute findings. Dictated by: Sravan Stoll MD 01/26/2021 11:03 Sravan Stoll MD in [facility] 01/26/2021 11:03
--- NOTE | 2021-01-26 10:06 | ECG_ITS ---
APPROVED REPORT Exam: Resting ECG HR:61 bpm ECG Measurements Heart Rate 61 AXES NE 130 P 41 QRSd 80 QRS 57 QT 436 T 75 QTc 438 Conclusion Sinus rhythm with premature atrial complexes Otherwise normal ECG Electronically signed by : Hany Sanders, 01/26/2021 17:38:47
--- NOTE | 2021-01-26 10:13 | PC.NURSE ---
Pt to rad.
[2021-01-26 10:25] LABS: Basophils # 0.1 K/mm3 (0-0.2); Basophils % 1.1 % (0.1-2.0); Eosinophils # 0.3 K/mm3 (0.0-0.4); Eosinophils % 5.4 % (0.1-12.0); Hematocrit 35.2 % (37.0-47.0); Hemoglobin 12.2 g/dL (12.2-16.2); Lymphocytes # 1.5 K/mm3 (0.7-4.5); Lymphocytes % 27.9 % (10-50); Mean Corpuscular HGB Conc 34.7 g/dL (31.8-35.4); Mean Corpuscular Hemoglobin 29.6 pg (27.0-31.2); Mean Corpuscular Volume 85.5 fl (81-99); Mean Platelet Volume 8.2 fl (7.4-10.4); Monocytes # 0.2 K/mm3 (0.1-1.0); Monocytes % 4.5 % (1.7-9.3); Neutrophils # 3.3 K/mm3 (1.8-7.8); Neutrophils % 61.1 % (37.0-80.0); Platelet Count 287 K/mm3 (142-424); Red Blood Count 4.12 M/mm3 (4.20-5.40); Red Cell Distribution Width 13.4 % (11.5-17.5); White Blood Count 5.3 K/mm3 (4.8-10.8)
[2021-01-26 10:31] LABS: Chloride 101 mmol/L (98-107)
[2021-01-26 10:32] LABS: Potassium 3.4 mmoL/L (3.5-5.1); Sodium 132 mmol/L (136-145)
--- NOTE | 2021-01-26 10:33 | PC.NURSE ---
patient still gone for radiology procedure. unable to perform straight cath at this time
[2021-01-26 10:34] LABS: Alanine Aminotransferase 22 U/L (12-78); Albumin Level 4.1 g/dl (3.5-5.0); Albumin/Globulin Ratio 1.5 (1.1-1.8); Alkaline Phosphatase 124 U/L (38-126); Aspartate Amino Transferase 36 U/L (14-36); Bilirubin,Total 0.5 mg/dl (0.2-1.3); Blood Urea Nitrogen 6 mg/dl (7-17); Creatinine Clearance Estimated 33 mL/min (50-200); Estimated Glomerular Filt Rate 81 ml/min (>60); GFR (African American) 98 ML/MIN (>60); Globulin 2.7 g/dL (1.3-3.2); Total Protein,Serum 6.8 g/dl (6.3-8.2)
[2021-01-26 10:35] LABS: Anion Gap 10.4 mEq/L (5-15); Calcium 9.2 mg/dl (8.4-10.2); Carbon Dioxide 24 mmol/L (22.0-30.0); Glucose 122 mg/dl (74-100)
[2021-01-26 10:47] LABS: Troponin I < 0.01 ng/ml (0.00-0.034)
[2021-01-26 10:53] LABS: Microscopic, Urine URINE MICROSCOPIC (MICROSCOPIC)
[2021-01-26 10:58] LABS: Appearance,Urine SL CLOUDY (Clear); Bilirubin,Urine Negative (Negative); Blood, Urine TRACE-I (Negative); Color,Urine YELLOW (Yellow); Glucose,Urine (UA) Negative (Negative); Ketones,Urine Negative (Negative); Leukocyte Esterase,Urine 3+ (Negative); Nitrate,Urine POSITIVE (Negative); Protein,Urine Negative (Negative)
[2021-01-26 11:07] LABS: RBC,Urine Occasional #/hpf (0-3); WBC,Urine TNTC #/hpf (0-3)
[2021-01-26 11:08] LABS: Bacteria,Urine 4+ /lpf
[2021-01-26 11:21] LABS: Lactic Acid 1.1 mmol/L (0.7-2.1)
--- NOTE | 2021-01-26 11:59 | PC.NURSE ---
called for dr fernandez he was in with a pt but will return call.
--- NOTE | 2021-01-26 12:09 | PC.NURSE ---
Grisel speaking with MD at this time. Dr Vasquez advised Grisel to take care of admission.
--- NOTE | 2021-01-26 12:10 | PC.NURSE ---
dr newman speaking with hannah at this time
--- NOTE | 2021-01-26 15:37 | PC.NURSE ---
Per matt in lab covid swab has 20 mins left.
--- NOTE | 2021-01-26 17:17 | PC.NURSE ---
pt arrived to the floor via wheelchair
[2021-01-26 17:31] LABS: POC Glucose,Bedside 96 (70-110)
--- NOTE | 2021-01-27 03:29 | PC.NURSE ---
No acute changes overnight. Pt has been alert to self and place this shift. She has slept well through the night. No c/o pain or discomfort. Pt has voided in BSC with 2 assist. IV patent, SL. Lungs CTA, on room air. Abd soft and nontender, bowel sounds x4. VSS, call light in reach, no concerns at this time.
[2021-01-27 04:00] VITALS: BP 160/75; PULSE 68; RESP 16; TEMP 36.9; O2SAT 98
[2021-01-27 05:00] VITALS: BMI 18.8
--- NOTE | 2021-01-27 07:24 | HMH.PHAVTE ---
[facility] Pharmacy VTE Monitoring - Patient Demographics Admission date: 01/26/21 Report Date: 01/27/21 Time: 07:24 Allergies/Adverse Reactions: Patient Allergies No Known Allergies Allergy (Verified 01/15/21 11:59) Height: 1.63 m Weight: 50.009 kg Patient Problems: Current Active Problems UTI (urinary tract infection) (Acute) Multiple falls (Acute) - VTE Risk Labs: VTE Related Lab Results Hgb 12.2 g/dL (12.2-16.2) 01/26/21 09:37 Hct 35.2 % (37.0-47.0) L 01/26/21 09:37 Plt Count 287 K/mm3 (142-424) 01/26/21 09:37 BUN 6 mg/dl (7-17) L 01/26/21 09:37 Creatinine 0.70 mg/dl (0.52-1.04) 01/26/21 09:37 Estimated Creat Clear 33 mL/min (50-200) 01/26/21 09:37 VTE Score: 2 - Prophylaxis VTE Prophylaxis Ordered?: Yes Types of VTE Prophylaxis: TEDS Knee High Location of Applied Device: Bilateral Lower Extremeties
[2021-01-27 08:00] VITALS: BP 158/80; PULSE 70; RESP 16; TEMP 36.8; O2SAT 98
--- NOTE | 2021-01-27 09:10 | HMH.HP ---
*Admission Date: 01/26/21 *Chief complaint: uti *History of present illness: 80 yr old female presented to ed from [facility] with multiple falls, possibly due to gait instability, and urinary incontinence. The patient is a poor historian. She only complains of being tired. Denies pain. Denies shortness of breath.. We will admit for UTI and they will further evaluate. [facility] History I have reviewed the patient's past medical history: Yes Medical History: Reports:: Anxiety, Chronic Obstructive Pulmonary Disease (COPD), Depression, Hyperlipidemia, Hypertension Denies:: Cancer, Diabetes Mellitus Type 1, Diabetes Mellitus Type 2, MRSA *Have you ever received a pneumonia vaccine?: Yes *Have you received a flu vaccine this season?: Yes Other Medical History: Reports: Anemia Other Surgeries: Yes: Appendectomy, Cardiac Catheterization, Cholecystectomy, Other Amputation: No Fractures: No - *Social History Last grade of school completed: High school graduate Smoking Status: Unknown if ever smoked Alcohol Intake: never Substance Use Type: denies use *Occupational Status:: disabled Housing: prison Household Members: other *Travel in the last 8 weeks: None - Psychiatric History Pschychiatric History:: Reports:: Anxiety, Depression Family Hx:: No significant family history Review of Systems - Review of Systems Review of systems:: pertinent systems reviewed and negative unless documented below - Constitutional Denies body ache(s), Denies fever(s) - Eyes Denies change in vision - ENT Denies bleeding gums - *Cardiovascular Denies chest pain at rest - *Respiratory Denies chest congestion - *Gastrointestinal Denies bloating, Denies nausea, Denies vomiting - *Genitourinary Reports urinary incontinence, Denies abnormal vaginal bleeding - *Musculoskeletal Reports muscle weakness, Reports other - Integumentary/Breasts Denies rash - *Neurologic Reports unsteadiness, Reports frequent falls, Denies dizziness, Denies headache(s) - Psychiatric Denies anxiety - Endocrine Denies flushing - Hematologic/Lymphatic Denies enlarged lymph nodes - Allergic/Immunologic Denies itchy eyes Meds Home Medications Medication Instructions Recorded Confirmed Type albuterol sulfate 90 mcg/actuation 2 puff IH Q4HP PRN g 01/12/19 01/26/21 History aerosol inhaler atorvastatin 40 mg tablet 40 mg PO HS 01/12/19 01/26/21 History donepezil 10 mg tablet 20 mg PO HS tab 01/12/19 01/26/21 History ergocalciferol (vitamin D2) 1,250 50,000 unit PO WEEKLY 01/12/19 01/26/21 History mcg (50,000 unit) capsule memantine 28 mg capsule 28 mg PO HS 01/12/19 01/26/21 History sprinkle,extended release 24hr multivitamin,tx-minerals 1 tab PO DAILY 01/12/19 01/26/21 History sertraline 100 mg tablet 150 mg PO DAILY 01/12/19 01/26/21 History tiotropium bromide 18 mcg capsule 1 cap IH DAILY 01/12/19 01/26/21 History with inhalation device Acetaminophen [Acetaminophen 325mg 650 mg PO Q6HP PRN 06/29/19 01/26/21 History tab] Quetiapine Fumarate 50 mg PO HS 06/29/19 01/26/21 History LORazepam [Lorazepam 0.5mg Tablet] 0.5 mg PO Q8HP PRN 11/02/20 01/26/21 History OXcarbazepine [Trileptal] 600 mg PO BID 11/02/20 01/26/21 History Megestrol Acetate 20 mg PO DAILY 01/26/21 01/26/21 History Pantoprazole Sodium [Protonix 40mg 40 mg PO BID 01/26/21 01/26/21 History tablet] Allergies Allergy/AdvReac Type Severity Reaction Status Date / Time No Known Allergies Allergy Verified 01/15/21 11:59 Exam Vital signs and Labs for Last 24 Hours: Temp Pulse Resp BP Pulse Ox 98.4 F 68 16 160/75 H 98 01/27/21 04:00 01/27/21 04:00 01/27/21 04:00 01/27/21 04:00 01/27/21 08:00 Laboratory Results - last 24 hr 01/26/21 09:37: WBC 5.3, RBC 4.12 L, Hgb 12.2, Hct 35.2 L, MCV 85.5, MCH 29.6, MCHC 34.7, RDW 13.4, Plt Count 287, MPV 8.2, Neut % (Auto) 61.1, Lymph % (Auto) 27.9, [place] % (Auto) 4.5, Eos % (Auto) 5
--- NOTE | 2021-01-27 09:34 | SW/DCPLANNER ---
Addendum entered by Fatoumata Watertown 01/27/21 12:41: Clarita with [facility] arranged all discharge plans to [facility] prior to [facility] admission. Addendum entered by Fatoumata Watertown 01/27/21 12:27: Dr Sanchez has stated that if [facility] will transport (have confirmed they will prior to 4PM) then he will discharge today. I have notified Neda with [facility] that patient will discharge today. [facility]: [address] [place] [address] Report #: [phone] Fax #: [phone] Addendum entered by Fatoumata Watertown 01/27/21 11:51: [facility] has stated that [facility] in [place] is willing to accept this patient. I called and spoke with Neda at [facility] and she has stated that she can accept this patient when she is ready for discharge. Patient information has been faxed to Neda at [facility]. I will speak with Dr Sanchez to find out when this patient will be stable for discharge. [facility] phone: [phone] fax: [phone] Original Note: This patient was admitted from [facility]. I have spoke with Clarita from [facility] and she has stated that patient will need placement at time of discharge. PT/OT has been ordered for today. I will fax patient information to [facility] this afternoon: [facility] has stated that she does have beds available.
--- NOTE | 2021-01-27 09:46 | HMH.PTEV ---
Physical Therapy Evaluation Rehab PT IP Evaluation Start: 01/27/21 09:07 Freq: ONCE Status: Active Protocol: Document 01/27/21 09:40 PHORNE (Rec: 01/27/21 09:45 PHORNE [id number]) Subjective/History History History 80 byowf adm to [facility] with AMS and poss UTI from personal senior care. She reports she was able to ambulate independently [employer]. Subjective Subjective She reports feeling increased dizziness with upright position and diffuse pain in anterior R groin/hip area. Rehab PT IP Eval Objective Appearance Patient Behavior Appropriate Patient Orientation Person,Place Difficulty following instructions none Speech Pattern Clear Ambulation Patient Able to Ambulate Yes Ambulation Observation IP General Gait Pattern Observation Wide Based Gait,Shuffling Step ,Decrease Stride Lngth (R), Decrease Stride Lngth (L) Ambulation Distance (feet) 10 Ambulation Assistive Device None Ambulation Ability Minimal x 1 (25% assist) Balance Ability to Arise Able, uses arms to help Sitting Balance Steady, safe Standing Balance Unsteady Dynamic Sitting Balance Ability Good Dynamic Standing Balance Ability Poor Transfers Bed Transfer Ability Supervision/Stand by Sit to Stand Bed Transfer Ability Minimal x 1 (25% assist) Sit to Stand Chair Transfer Ability Minimal x 1 (25% assist) ROM All Extremities PT ROM Status WFL MMT All Extremities PT MMT WFL Abnormal MMT Grade grossly 3/5 throughout Rehab PT IP prob,goals,plan Problems Date of Evaluation: 01/27/21 PT IP Problems Transfers,Gait,Balance Rehab Potential Rehab Potential Good Equipment Needs Assistive Devices Rolling / Wheeled Walker Plan PT Intervention Plan Transfers,Gait,Balance, Therapeutic Exercise PT Plan Frequency BID Duration LOS Discharge Goals Bed Transfer Ability Independent Sit to Stand Chair Transfer Ability Contact Guard/Hand Hold Ambulation Assistive Device Rolling Walker Ambulation Distance (feet) 30 Discharge Plan PT Discharge Plan Pt with significant posterior lean and poor static/dynamic balance in standing. She is most approprite for rehab placement at this time du
--- NOTE | 2021-01-27 11:03 | HMH.OTEV ---
OT Inpatient Evaluation Rehab OT IP Evaluation Start: 01/27/21 09:07 Freq: ONCE Status: Complete Protocol: Document 01/27/21 10:58 [facility] (Rec: 01/27/21 11:03 [facility] [id number]) Rehab OT IP Assessment Subjective History Pt oriented to self and birthday. Pt not oriented to place or year. Pt agreeable to engage in therapy evaluation. Pt was admitted via ED on 01/26/21 due to multiple falls. Pt was dx with UTI. Pt has a past medical history of Anxiety, COPD, Depression, HYperlipidemia, and HTN. Pt poor historian and said she lives at home with her mother and brother. From report wendy pt is [facility]. Not clear on prior level of fucntion due pt patients inability to provide appropriate information. Subjective My mom does all the cleaning. Objective Patient Orientation Person,Birthday Upper Extremity Gross ROM WFL Bed Mobility bed mobility-scooting,bed mobility - supine/sit,bed mobility - rolling Assist Level Supervision/Stand by Transfer Training Sit/Stand Transfer Assist Level Minimal x 1 (25% assist) Rehab OT IP prob,goals,plan Problems Date of Evaluation: 01/27/21 OT IP Problems Bed Mobility,Transfers,Gait, Balance,Self care,Safety Rehab Potential Rehab Potential Good Equipment Needs Assistive Devices Rolling / Wheeled Walker Plan OT intervention Plan Bed Mobility,Transfers,Gait, Balance,Self care,Safety, Therapeutic Exercise OT Plan Frequency Daily Duration LOS Discharge Goals Bed Mobility Ability Standby Assistance Sit to Stand Chair Transfer Ability Contact Guard/Hand Hold Chair Transfer Ability Contact Guard/Hand Hold Chair Transfer Technique Sit to/from Ambulatory Chair Transfer Assistive Devices Rolling Walker Feeding Ability Independent Lower Body Dressing Ability Assistance X1 Upper Body Dressing Ability Standby Assistance Bathing Ability Assistance x1 Performing To
--- NOTE | 2021-01-27 11:56 | HMH.PHAINT ---
MEDICATION RECONCILIATION COMPLETED USING EXTERNAL FILL HISTORY AND ADY WESLEY
--- NOTE | 2021-01-27 12:32 | HMH.DCSUM ---
General - General Admission date:: 01/26/21 Discharge date: 01/27/21 HPI HPI: 80 yr old female presented to ed from personal correction with multiple falls, possibly due to gait instability, and urinary incontinence. The patient is a poor historian. She only complains of being tired. Denies pain. Denies shortness of breath.. We will admit for UTI and they will further evaluate. Hospital Course Hospital Course: Laboratory Tests 01/26/21 01/26/21 01/26/21 09:37 09:37 09:37 WBC 5.3 RBC 4.12 L Hgb 12.2 Hct 35.2 L MCV 85.5 MCH 29.6 MCHC 34.7 RDW 13.4 Plt Count 287 MPV 8.2 Neut % (Auto) 61.1 Lymph % (Auto) 27.9 [place] % (Auto) 4.5 Eos % (Auto) 5.4 Baso % (Auto) 1.1 Neut # (Auto) 3.3 Lymph # (Auto) 1.5 [place] # (Auto) 0.2 Eos # (Auto) 0.3 Baso # (Auto) 0.1 Sodium 132 L Potassium 3.4 L Chloride 101 Carbon Dioxide 24 Anion Gap 10.4 BUN 6 L Creatinine 0.70 Estimated Creat Clear 33 Estimated GFR 81 Est GFR ( Amer) 98 Glucose 122 H POC Glucose Lactate 1.1 Calcium 9.2 Total Bilirubin 0.5 AST 36 ALT 22 Alkaline Phosphatase 124 Troponin I < 0.01 Total Protein 6.8 Albumin 4.1 Globulin 2.7 Albumin/Globulin Ratio 1.5 Urine Color Urine Appearance Urine pH Ur Specific Allison Urine Protein Urine Glucose (UA) Urine Ketones Urine Blood Urine Nitrate Urine Bilirubin Urine Urobilinogen Ur Leukocyte Esterase Urine RBC Urine WBC Ur Squamous Epith Cells Urine Bacteria 01/26/21 01/26/21 10:45 17:24 WBC RBC Hgb Hct MCV MCH MCHC RDW Plt Count MPV Neut % (Auto) Lymph % (Auto) [place] % (Auto) Eos % (Auto) Baso % (Auto) Neut # (Auto) Lymph # (Auto) [place] # (Auto) Eos # (Auto) Baso # (Auto) Sodium Potassium Chloride Carbon Dioxide Anion Gap BUN Creatinine Estimated Creat Clear Estimated GFR Est GFR ( Amer) Glucose POC Glucose 96 Lactate Calcium Total Bilirubin AST ALT Alkaline Phosphatase Troponin I Total Protein Albumin Globulin Albumin/Globulin Ratio Urine Color Yellow Urine Appearance Sl cloudy Urine pH 7.0 Ur Specific Allison 1.010 Urine Protein Negative Urine Glucose (UA) Negative Urine Ketones Negative Urine Blood Trace-i Urine Nitrate Positive Urine Bilirubin Negative Urine Urobilinogen 1.0 Ur Leukocyte Esterase 3+ A Urine RBC Occasional Urine WBC Tntc Ur Squamous Epith Cells None Urine Bacteria 4+ Microbiology 01/26/21 10:45 Urine,Catheterized Urine Culture - Preliminary Gram Negative Rods 01/26/21 12:21 Nasopharyngeal Coronavirus COVID-19 PCR - Final ct head:FINDINGS: No midline shift, mass effect, intracranial hemorrhage, hydrocephalus, or extra-axial fluid collection is evident. There is generalized atrophy with periventricular hypodensity consistent with ischemic gliotic change from microvascular disease. The ventricles are enlarged as before. Normal pressure hydrocephalus is a consideration. Ventricular dilatation may also be due to underlying brain volume loss. The calvarium has an unremarkable appearance. No mastoid effusion. Minimal mucosal thickening of the left maxillary sinus IMPRESSION: 1. No acute intracranial findings. 2. Ventricular dilatation which may be due to ex vacuo dilatation or possible normal pressure hydrocephalus. chest xray:no acute findings pelvis xray no acute findings urine culture waitinf for cx results pt will be dc to [facility] in [place], that has been set up by [facility]. will dc home on kelfex while waiting for cx. she will need pt/ot and skill nursing Objective Vital signs: Temp Pulse Resp BP Pulse Ox 98.2 F
--- NOTE | 2021-01-27 13:05 | PC.NURSE ---
Report called and given to Neda at [facility]
--- NOTE | 2021-01-27 13:27 | PC.NURSE ---
Pt. left via EMS stretcher at this time.
== END 2021-01-27 13:27 | DRG 690 ==
LOC: ER 12:16 → 2ND 18:42
PROVIDERS: Admitting Provider Family Medicine; Emergency Provider Emergency Medicine; PCP Emergency Medicine; Visit Provider Emergency Medicine
DX: N39.0 Urinary tract infection, site not specified (principal); Z91.81 History of falling; R32 Unspecified urinary incontinence; R26.89 Other abnormalities of gait and mobility; J44.9 Chronic obstructive pulmonary disease, unspecified; F32.9 Major depressive disorder, single episode, unspecified; F41.9 Anxiety disorder, unspecified; E78.5 Hyperlipidemia, unspecified; Z90.49 Acquired absence of other specified parts of digestive tract; B96.89 Other specified bacterial agents as the cause of diseases classified elsewhere
CPT/HCPCS: 70450; 71045; 72170; 80053; 81001; 82962; 83605; 84484; 85025; 87040; 87086; 87088; 87186; 93005; 94640; 96365; 97162; 97166; 99284; U0003